=== PATIENT | female | born 1970 | race Caucasian/White ===

== ENCOUNTER 2017-04-11 08:12 | Emergency (ER) | payer OTHER ==
[~2017-04-11] VITALS: Wt 89.0 kg
--- NOTE | 2017-04-11 08:51 | ERD ---
ER Documentation Chief Complaint Date/Time DATE: 04/11/17 TIME: 08:50 Chief Complaint AP WITH NAUSEA X 3 DAYS, RAD BACK HPI 47-year-old female history of obesity presents with diffuse lower abdominal pain associated with nausea radiating to her lower back for the past 3 days. Patient states it is associated with constipation. She denies any history of vomiting, diarrhea or blood in her stools. She denies fevers or chills. ROS All systems reviewed and are negative except as per history of present illness. Medications Home Meds Active Scripts Tamsulosin Hcl* (Flomax*) 0.4 Mg Cap.er.24h, 0.4 MG PO BID, #30 CAP Prov:FIDEL STEINER PA-C 04/11/17 Hydrocodone/Acetaminophen ([place] 5-325 Tablet) 1 Each Tablet, 1 TAB PO Q6H Y for PAIN, #20 TAB Prov:FIDEL STEINER PA-C 04/11/17 Ibuprofen* (Motrin*) 600 Mg Tab, 600 MG PO Q6, #30 TAB Prov:FIDEL STEINER PA-C 04/11/17 Ciprofloxacin Hcl* (Ciprofloxacin Hcl*) 500 Mg Tablet, 500 MG PO BID for 10 Days , TAB Prov:FIDEL STEINER PA-C 04/11/17 Allergies Allergies: Coded Allergies: No Known Allergy (Unverified , 04/11/17) PMhx/Soc Medical and Surgical Hx: pt denies Medical Hx, pt denies Surgical Hx Hx Alcohol Use: Yes Hx Substance Use: No Hx Tobacco Use: No Physical Exam Vitals Vital Signs Date Time Temp Pulse Resp B/P Pulse Ox O2 Delivery O2 Flow Rate FiO2 04/11/17 08:17 99.0 96 20 150/89 99 Physical Exam General: Obese female, no distress HEENT: Head is normocephalic, atraumatic. No scleral icterus. Neck: Supple. Nontender. Lungs: Clear to auscultation. Normal air movement. Heart: Regular rate and rhythm. S1 and S2 are normal. No murmurs, gallops, or rubs. Abdomen: Soft, nontender, nondistended. Bowel sounds are normoactive. No CVA tenderness Extremities: No clubbing or cyanosis. Normal pulses. Moving extremities x 4. No weakness. Neurologic: Alert and oriented 3. No focal deficits. Skin: Normal turgor. No rash or lesions. Result Diagram: 04/11/17 0842 04/11/17 0842 Results 24 hrs Laboratory Tests Test 04/11/17 08:42 White Blood Count 15.110^3/ul Red Blood Count 4.6710^6/ul Hemoglobin 14.3g/dl Hematocrit 42.6% Mean Corpuscular Volume 91.2fl Mean Corpuscular Hemoglobin 30.6pg Mean Corpuscular Hemoglobin Concent 33.6g/dl Red Cell Distribution Width 12.8% Platelet Count 31865^3/UL Mean Platelet Volume 10.3fl Neutrophils % 74.8% Lymphocytes % 16.6% Monocytes % 6.7% Eosinophils % 1.1% Basophils % 0.4% Nucleated Red Blood Cells % 0.0/100WBC Neutrophils # 11.310^3/ul Lymphocytes # 2.510^3/ul Monocytes # 1.010^3/ul Eosinophils # 0.210^3/ul Basophils # 0.110^3/ul Nucleated Red Blood Cells # 0.010^3/ul Urine Color YELLOW Urine Clarity SLIGHTLY CLOUDY Urine pH 5.0 Urine Specific [place] 1.024 Urine Ketones TRACEmg/dL Urine Nitrite NEGATIVEmg/dL Urine Bilirubin NEGATIVEmg/dL Urine Urobilinogen NEGATIVEmg/dL Urine Leukocyte Esterase TRACELeu/ul Urine Microscopic RBC 8/HPF Urine Microscopic WBC 19/HPF Urine Hemoglobin 1+mg/dL Urine Glucose NEGATIVEmg/dL Urine Total Protein NEGATIVEmg/dl Sodium Level 143mmol/L Potassium Level 3.8mmol/L Chloride Level 99mmol/L Carbon Dioxide Level 26mmol/L Anion Gap 22 Blood Urea Nitrogen 15mg/dl Creatinine 0.74mg/dl Glucose Level 113mg/dl Calcium Level 9.6mg/dl Total Bilirubin 0.6mg/dl Direct Bilirubin 0.00mg/dl Indirect Bilirubin 0.6mg/dl Aspartate Amino Transf (AST/SGOT) 34IU/L Alanine Aminotransferase (ALT/SGPT) 55IU/L Alkaline Phosphatase 92IU/L Total Protein 8.3g/dl Albumin 4.5g/dl Globulin 3.80g/dl Albumin/Globulin Ratio 1.18 Lipase 40U/L Current Medications Medications (Trade) Dose Ordered Sig/Ana Route PRN Reason Start Time Stop Time Status Last Admin Dose Admin Sodium Chloride (NS) 1,000 ml @ 1,000 mls/hr Q1H STAT IV 04/11/17 09:56 04/11/17 10:55 DC 04/11/17 10:07 Morphine Sulfate (morphine) 4 mg ONCE STAT IV 04/11/17 09:56 04/11/17 09:59 DC 04/11/17 10:06 Ketorolac Tromethamine (Toradol) 30 mg ONCE STAT IV 04/11/17 09:56 04/11/17 09:59 DC 04/11/17 10:06 Ciprofloxacin (Cipro) 500 mg ONCE ONCE PO 04/11/17 10:00 04/11/17 10:01 DC 04/11/17 10:07 Ondansetron HCl (Zofran Inj) 4 mg ONCE STAT IV 04/11/17 10:16 04/11/17 10:17 DC 04/11/17 10:19 Hydromorphone HCl (Dilaudid) 0.5 mg ONCE STAT IV 04/11/17 10:53 04/11/17 10:54 DC 04/11/17 11:00 DIAGNOSTIC IMAGING REPORT Patient: OPAL PLUMMER : 1970 Age: 47 Sex: F MR #: [id number] DOS: 04/11/17 0903 Ordering MD: FIDEL STEINER PA-C Location: [facility] Room/Bed: PROCEDURE: CT Abdomen and Pelvis without intravenous contrast. CLINICAL INDICATION: Lower abdominal pain radiating to the back. Nausea. . TECHNIQUE: CT scan of the abdomen and pelvis without intravenous contrast was performed on a multi-slice CT scanner. Coronal and sagittal reformatted images were obtained from the axial source images. Images were reviewed on a high- resolution PACS workstation. Total DLP = 1248.4 mGy-cm. CTDIvol = 22.1 mGy. One or more of the following dose reduction techniques were used: Automated exposure control. Adjustment of the mA and/or kV according to patient size. Use of iterative reconstruction technique. COMPARISON: None. FINDINGS: CT abdomen and pelvis: The lung bases are clear. The heart size is normal in size. The liver is normal in size and mildly fatty in density without focal mass or intrahepatic biliary dilatation. The spleen is normal in size and homogeneous in density. The pancreas as visualized is normal. The gallbladder shows no evidence of stones or distension . The adrenal glands are normal. There is moderate left- sided hydroureteronephrosis with perinephric inflammation and stranding. There is a 9 x 7 x 6 mm calcified stone in the left mid ureter. The right kidney appears unremarkable without obstructive uropathy or urolithiasis. The stomach is partially collapsed, but is grossly unremarkable. The small bowels are unremarkable. The colon and rectum are normal. The appendix is normal. There is no evidence of appendicitis or diverticulitis. The pelvic organs are normal. The bladder is normal. There is no abdominal or pelvic adenopathy, free fluid, free air or mass. The aorta is normal in caliber and course. The osseous structures are intact. No osteolytic or osteoblastic lesions are identified. The soft tissues are within normal limits. Lack of IV and oral contrast limits sensitivity of exam. IMPRESSION: 1. Left mid ureteral 9 mm stone with moderate left hydroureteronephrosis and perinephric inflammation. 2. Mild hepatic steatosis. RPTAT: GG .Feroz Martinez MD, MD Date Time Electronically viewed and signed by .Feroz Martinez MD, on 04/11/2017 09:35 .L/ Procedures/MDM ED course: Patient had blood work obtained, and a KUB. MDM: 47-year-old female presents with lower abdominal pain for the past 3 days, presents with a ureteral kidney stone is 9 mm, with moderate hydronephrosis. CT abdomen pelvis confirms this finding. White blood cell count was mildly elevated at 15,000, however patient is afebrile well appearing and nontoxic. I discussed the results of the blood work, as well as a urine analysis and CT scan with my attending physician Dr. Justice who agrees that this patient can be discharged and managed on outpatient basis. She will be given medication for pain, and urinalysis does show white blood cells, and will be given ciprofloxacin for coverage. She was given instructions to follow-up with the urologist soon, she was given referral information to several. The case was reviewed and discussed with Dr. Justice who agrees with the plan of care including labs, treatment, and advanced imaging as appropriate. Departure Diagnosis: Primary Impression: Ureteral stone with hydronephrosis Condition: FIDEL Riggs PA-C Apr 11, 2017 08:51
[2017-04-11 09:00] LABS: BASOPHIL # 0.1 10^3/ul (0.0-0.1); BASOPHILS % 0.4 % (0.0-2.0); EOSINOPHILS # 0.2 10^3/ul (0.0-0.5); EOSINOPHILS % 1.1 % (0.0-7.0); HEMATOCRIT 42.6 % (37.0-47.0); HEMOGLOBIN 14.3 g/dl (12.0-16.0); LYMPHOCYTES # 2.5 10^3/ul (0.8-2.9); LYMPHOCYTES % 16.6 % (15.0-51.0); MEAN CORPUSCULAR HEMOGLOBIN 30.6 pg (29.0-33.0); MEAN CORPUSCULAR HGB CONC 33.6 g/dl (32.0-37.0); MEAN CORPUSCULAR VOLUME 91.2 fl (82.0-101.0); MEAN PLATELET VOLUME 10.3 fl (7.4-10.4); MONOCYTES % 6.7 % (0.0-11.0); NEUTROPHIL # 11.3 10^3/ul (1.6-7.5); NEUTROPHILS % 74.8 % (39.0-77.0); PLATELET COUNT 329 10^3/UL (140-415); RED BLOOD COUNT 4.67 10^6/ul (4.20-5.40); RED CELL DISTRIBUTION WIDTH 12.8 % (11.5-14.5); WHITE BLOOD COUNT 15.1 10^3/ul (4.8-10.8)
[2017-04-11 09:11] LABS: ADD UMIC YES; UR ASCORBIC ACID NEGATIVE (NEGATIVE); UR BILIRUBIN (Dip) NEGATIVE (NEGATIVE); UR BLOOD (Dip) 1+ mg/dL (NEGATIVE); UR CLARITY SLIGHTLY CLOUDY (CLEAR); UR COLOR YELLOW (YELLOW); UR GLUCOSE (Dip) NEGATIVE (NEGATIVE); UR KETONES (Dip) TRACE mg/dL (NEGATIVE); UR LEUKOCYTE ESTERASE (Dip) TRACE Leu/ul (NEGATIVE); UR NITRITE (Dip) NEGATIVE (NEGATIVE); UR RBC 8 /HPF (0-5); UR SPECIFIC GRAVITY (Dip) 1.024 (1.003-1.030); UR TOTAL PROTEIN (Dip) NEGATIVE (NEGATIVE); UR UROBILINOGEN (Dip) NEGATIVE (NEGATIVE)
[2017-04-11 09:24] LABS: ALBUMIN 4.5 g/dl (3.3-4.9); ALBUMIN/GLOBULIN RATIO 1.18; BILIRUBIN,INDIRECT 0.6 mg/dl (0-1.1); BILIRUBIN,TOTAL 0.6 mg/dl (0.2-1.3); CALCIUM 9.6 mg/dl (8.4-10.2); CREATININE 0.74 mg/dl (0.44-1.00); POTASSIUM 3.8 mmol/L (3.5-5.1); TOTAL PROTEIN 8.3 g/dl (6.1-8.1)
--- NOTE | 2017-04-11 09:35 | RADRPT ---
PROCEDURE: CT Abdomen and Pelvis without intravenous contrast. CLINICAL INDICATION: Lower abdominal pain radiating to the back. Nausea. . TECHNIQUE: CT scan of the abdomen and pelvis without intravenous contrast was performed on a multi -slice CT scanner. Coronal and sagittal reformatted images were obtained from the axial source image s. Images were reviewed on a high-resolution PACS workstation. Total DLP = 1248.4 mGy-cm. CTDIvol = 22.1 mGy. One or more of the following dose reduction techniques were used: Automated exposure control. Adjustment of the mA and/or kV according to patient size. Use of iterative reconstruction technique. COMPARISON: None. FINDINGS: CT abdomen and pelvis: The lung bases are clear. The heart size is normal in size. The liver is normal in size and mildly fatty in density without focal mass or intrahepatic biliary dilatation. The spleen is normal in si ze and homogeneous in density. The pancreas as visualized is normal. The gallbladder shows no ev idence of stones or distension . The adrenal glands are normal. There is moderate left-sided hydro ureteronephrosis with perinephric inflammation and stranding. There is a 9 x 7 x 6 mm calcified sto ne in the left mid ureter. The right kidney appears unremarkable without obstructive uropathy or ur olithiasis. The stomach is partially collapsed, but is grossly unremarkable. The small bowels are unremarkable. The colon and rectum are normal. The appendix is normal. There is no evidence of appendicitis or di verticulitis. The pelvic organs are normal. The bladder is normal. There is no abdominal or pelvic a denopathy, free fluid, free air or mass. The aorta is normal in caliber and course. The osseous structures are intact. No osteolytic or osteo blastic lesions are identified. The soft tissues are within normal limits. Lack of IV and oral con trast limits sensitivity of exam. IMPRESSION: 1. Left mid ureteral 9 mm stone with moderate left hydroureteronephrosis and perinephric inflammati on. 2. Mild hepatic steatosis. RPTAT: GG .Feroz Martinez MD, Date Time Electronically viewed and signed by .Feroz Martinez MD, on 04/11/2017 09:35 .L/
[2017-04-11] MEDS ORDERED: SOD CHLORIDE 0.9% 1,000 ML IV STA (09:56)
[2017-04-11] MEDS ORDERED: KETOROLAC 30 MG INJ IV STA (09:56)
[2017-04-11] MEDS ORDERED: morphine 4 MG/ML VIAL IV STA (09:56)
[2017-04-11] MEDS ORDERED: CIPROFLOXACIN 500 MG TAB PO ONE (10:00)
[2017-04-11] MEDS ORDERED: ONDANSETRON 4 MG INJ IV STA (10:16)
[2017-04-11] MEDS ORDERED: HYDROmorphONE 1 MG/ML SYG IV STA (10:53)
[2017-04-11] MEDS ORDERED: IBUP-1542 PO (11:20)
[2017-04-11] MEDS ORDERED: CIPR500T4 PO (11:20)
[2017-04-11] MEDS ORDERED: HYDR-906 PO (11:20)
[2017-04-11] MEDS ORDERED: TAMS-14 PO (11:20)
[2017-04-11 11:54] VITALS: BP 129/73; PULSE 75; RESP 18
== END 2017-04-11 11:55 | disposition home or self-care (01) ==
LOC: FTE 08:12
DX: N13.2 Hydronephrosis with renal and ureteral calculous obstruction (principal)
CPT/HCPCS: 36415; 74176; 80053; 81001; 83690; 85025; 96374; 96375; J1170; J1885; J2270; J2405; J7030; Z7502; Z7610

== ENCOUNTER 2017-04-12 10:02 | Inpatient (IN) | payer OTHER ==
[~2017-04-12] VITALS: Ht 162.6 cm; Wt 90.0 kg
[~2017-04-12 10:02] MED LIST: CIPR500T4 PO; HYDR-906 PO; IBUP-1542 PO; TAMS-14 PO
[2017-04-12] MEDS ORDERED: ONDANSETRON 4 MG INJ IV STA (10:23)
[2017-04-12] MEDS ORDERED: SOD CHLORIDE 0.9% 1,000 ML IV STA (10:23)
--- NOTE | 2017-04-12 10:45 | ERD ---
ER Documentation Chief Complaint Date/Time DATE: 04/12/17 TIME: 10:43 Chief Complaint LEFT FLANK PAIN, SEEN HERE YESTERDAY WITH SAME, STATES MEDS TOO STRONG HPI 47-year-old female diagnosed yesterday with left-sided ureteral stone, presents with left flank pain, nausea, vomiting and states that she feels drowsy. She was diagnosed with a kidney stone on CT scan, and was sent home with Cipro, Flomax, ibuprofen and [place]. She reports that she feels like her eyes rolling back and reports nausea vomiting. She states that the ibuprofen was not really helping, with the [place] she pain under control. She denies any fevers or chills. She states that she try to call 3 of the urologist on the referral information however she was not able to follow-up due to insurance limitations. ROS All systems reviewed and are negative except as per history of present illness. Medications Home Meds Active Scripts Tamsulosin Hcl* (Flomax*) 0.4 Mg Cap.er.24h, 0.4 MG PO BID, #30 CAP Prov:FIDEL STEINER PA-C 04/11/17 Hydrocodone/Acetaminophen ([place] 5-325 Tablet) 1 Each Tablet, 1 TAB PO Q6H Y for PAIN, #20 TAB Prov:FIDEL STEINER PA-C 04/11/17 Ibuprofen* (Motrin*) 600 Mg Tab, 600 MG PO Q6, #30 TAB Prov:FIDEL STEINER PA-C 04/11/17 Ciprofloxacin Hcl* (Ciprofloxacin Hcl*) 500 Mg Tablet, 500 MG PO BID for 10 Days , TAB Prov:FIDEL STEINER PA-C 04/11/17 Allergies Allergies: Coded Allergies: No Known Allergy (Unverified , 04/12/17) PMhx/Soc History of Surgery: Yes ( x 4) Anesthesia Reaction: No Hx Neurological Disorder: No Hx Respiratory Disorders: No Hx Cardiac Disorders: No Hx Psychiatric Problems: No Hx Miscellaneous Medical Probl: Yes (nephrolithiasis) Hx Alcohol Use: Yes Hx Substance Use: No Hx Tobacco Use: No Smoking Status: Never smoker Physical Exam Vitals Vital Signs Date Time Temp Pulse Resp B/P Pulse Ox O2 Delivery O2 Flow Rate FiO2 04/12/17 10:04 97.8 81 17 142/68 99 Physical Exam General: Well-developed, well-nourished. The patient appears in no acute distress. HEENT: Head is normocephalic, atraumatic. No scleral icterus. Neck: Supple. Nontender. Lungs: Clear to auscultation. Normal air movement. Heart: Regular rate and rhythm. S1 and S2 are normal. No murmurs, gallops, or rubs. Abdomen: Soft, nontender, nondistended. Bowel sounds are normoactive. Extremities: No clubbing or cyanosis. Normal pulses. Moving extremities x 4. No weakness. Neurologic: Alert and oriented 3. No focal deficits. Skin: Normal turgor. No rash or lesions. Result Diagram: 04/12/17 1035 04/12/17 1035 Results 24 hrs Laboratory Tests Test 04/12/17 10:21 04/12/17 10:35 Urine Color YELLOW Urine Clarity SLIGHTLY CLOUDY Urine pH 5.0 Urine Specific [place] 1.029 Urine Ketones 1+mg/dL Urine Nitrite NEGATIVEmg/dL Urine Bilirubin NEGATIVEmg/dL Urine Urobilinogen NEGATIVEmg/dL Urine Leukocyte Esterase 3+Ana/ul Urine Microscopic RBC 4/HPF Urine Microscopic WBC 25/HPF Urine Squamous Epithelial Cells FEW/HPF Urine Bacteria FEW/HPF Urine Hemoglobin 1+mg/dL Urine Glucose NEGATIVEmg/dL Urine Total Protein NEGATIVEmg/dl White Blood Count 11.410^3/ul Red Blood Count 4.0310^6/ul Hemoglobin 12.3g/dl Hematocrit 37.0% Mean Corpuscular Volume 91.8fl Mean Corpuscular Hemoglobin 30.5pg Mean Corpuscular Hemoglobin Concent 33.2g/dl Red Cell Distribution Width 12.9% Platelet Count 86773^3/UL Mean Platelet Volume 10.6fl Neutrophils % 67.6% Lymphocytes % 21.4% Monocytes % 7.6% Eosinophils % 2.6% Basophils % 0.4% Nucleated Red Blood Cells % 0.0/100WBC Neutrophils # 7.710^3/ul Lymphocytes # 2.410^3/ul Monocytes # 0.910^3/ul Eosinophils # 0.310^3/ul Basophils # 0.110^3/ul Nucleated Red Blood Cells # 0.010^3/ul Sodium Level 143mmol/L Potassium Level 3.8mmol/L Chloride Level 103mmol/L Carbon Dioxide Level 24mmol/L Anion Gap 20 Blood Urea Nitrogen 14mg/dl Creatinine 0.64mg/dl Glucose Level 123mg/dl Calcium Level 9.0mg/dl Total Bilirubin 0.4mg/dl Direct Bilirubin 0.00mg/dl Indirect Bilirubin 0.4mg/dl Aspartate Amino Transf (AST/SGOT) 47IU/L Alanine Aminotransferase (ALT/SGPT) 68IU/L Alkaline Phosphatase 95IU/L Total Protein 7.5g/dl Albumin 4.1g/dl Globulin 3.40g/dl Albumin/Globulin Ratio 1.20 Lipase 39U/L Current Medications Medications (Trade) Dose Ordered Sig/Ana Route PRN Reason Start Time Stop Time Status Last Admin Dose Admin Sodium Chloride (NS) 1,000 ml @ 1,000 mls/hr Q1H STAT IV 04/12/17 10:23 04/12/17 11:22 04/12/17 10:41 Ondansetron HCl 4 mg 4 mg ONCE STAT IV 04/12/17 10:23 04/12/17 10:27 DC 04/12/17 10:39 Ceftriaxone Sodium (Rocephin) 50 ml @ 100 mls/hr ONCE ONCE IVPB 04/12/17 11:30 04/12/17 11:59 Ketorolac Tromethamine (Toradol) 30 mg ONCE STAT IV 04/12/17 11:15 04/12/17 11:16 DC Procedures/MDM ED course: Labs and urine were repeated, she was given a fluid bolus of normal saline, as well as Zofran 4 mg IV. Patient was given Rocephin 1 g IV. She reports that yesterday the Toradol helped her, her kidney function is still normal, and will be given another dose of Toradol 30 mg IV. Medical decision making: This 47-year-old female presents with nausea, vomiting and flank pain associated with a kidney stone, complaining of pain, worsening urinary tract infection and at this point given that she has already been trialed on p.o. medication at home and still vomiting she will further benefit from hospitalization, pain control, IV antibiotics and fluids for kidney stone management. Yesterday's workup showed a white blood cell count of 15,000, CT abdomen pelvis shows a 9 mm obstructing ureteral stone with thick stranding. She is nontoxic appearing, afebrile, is unlikely the patient has a septic kidney stone, however because she continues to have pain, with a urinary tract infection and reports nausea vomiting at home, patient warrants hospitalization for symptomatic control. The case was reviewed and discussed with Dr. Vang who agrees with the plan of care including labs, treatment, and advanced imaging as appropriate. Departure Diagnosis: Primary Impression: Ureteral calculus, left Additional Impression: UTI (urinary tract infection) Condition: Stable FIDEL STEINER PA-C Apr 12, 2017 10:45
[2017-04-12 10:48] LABS: BASOPHIL # 0.1 10^3/ul (0.0-0.1); BASOPHILS % 0.4 % (0.0-2.0); EOSINOPHILS # 0.3 10^3/ul (0.0-0.5); EOSINOPHILS % 2.6 % (0.0-7.0); HEMOGLOBIN 12.3 g/dl (12.0-16.0); LYMPHOCYTES # 2.4 10^3/ul (0.8-2.9); LYMPHOCYTES % 21.4 % (15.0-51.0); MEAN CORPUSCULAR HEMOGLOBIN 30.5 pg (29.0-33.0); MEAN CORPUSCULAR HGB CONC 33.2 g/dl (32.0-37.0); MEAN CORPUSCULAR VOLUME 91.8 fl (82.0-101.0); MEAN PLATELET VOLUME 10.6 fl (7.4-10.4); MONOCYTE # 0.9 10^3/ul (0.3-0.9); MONOCYTES % 7.6 % (0.0-11.0); NEUTROPHIL # 7.7 10^3/ul (1.6-7.5); NEUTROPHILS % 67.6 % (39.0-77.0); PLATELET COUNT 256 10^3/UL (140-415); RED BLOOD COUNT 4.03 10^6/ul (4.20-5.40); RED CELL DISTRIBUTION WIDTH 12.9 % (11.5-14.5); WHITE BLOOD COUNT 11.4 10^3/ul (4.8-10.8)
[2017-04-12 11:01] LABS: ADD UMIC YES; UR ASCORBIC ACID NEGATIVE (NEGATIVE); UR BACTERIA FEW /HPF (NONE SEEN); UR BILIRUBIN (Dip) NEGATIVE (NEGATIVE); UR BLOOD (Dip) 1+ mg/dL (NEGATIVE); UR CLARITY SLIGHTLY CLOUDY (CLEAR); UR COLOR YELLOW (YELLOW); UR GLUCOSE (Dip) NEGATIVE (NEGATIVE); UR KETONES (Dip) 1+ mg/dL (NEGATIVE); UR LEUKOCYTE ESTERASE (Dip) 3+ Leu/ul (NEGATIVE); UR NITRITE (Dip) NEGATIVE (NEGATIVE); UR RBC 4 /HPF (0-5); UR SPECIFIC GRAVITY (Dip) 1.029 (1.003-1.030); UR SQUAMOUS EPITHELIAL CELL FEW /HPF (FEW); UR TOTAL PROTEIN (Dip) NEGATIVE (NEGATIVE); UR UROBILINOGEN (Dip) NEGATIVE (NEGATIVE)
[2017-04-12 11:05] LABS: ALBUMIN 4.1 g/dl (3.3-4.9); ALBUMIN/GLOBULIN RATIO 1.2; BILIRUBIN,INDIRECT 0.4 mg/dl (0-1.1); BILIRUBIN,TOTAL 0.4 mg/dl (0.2-1.3); CREATININE 0.64 mg/dl (0.44-1.00); POTASSIUM 3.8 mmol/L (3.5-5.1); TOTAL PROTEIN 7.5 g/dl (6.1-8.1)
[2017-04-12] MEDS ORDERED: KETOROLAC 30 MG INJ IV STA (11:15)
[2017-04-12 11:28] VITALS: TEMP 98.1
[2017-04-12] MEDS ORDERED: CEFTRIAXONE 1 GM/50 ML (PMX) 50 ML IVPB ONE (11:30)
--- NOTE | 2017-04-12 11:42 | EN ---
Date/Time of Note Date/Time of Note DATE: 04/12/17 TIME: 11:40 ER Progress Note I have seen and evaluated the patient along with the PA and/or COPY TECHNICIAN provider. I agree with the evaluation and plan of care. Please see their documentation for full ER course and evaluation. In short: Patient presents with intractable pain secondary to 9 mm mid ureteral stone On exam: Patient is slightly uncomfortable with a benign abdominal exam Assessment and plan: Patient has intractable pain secondary to a 9 mm mid ureteral stone that is unlikely to pass spontaneously. The patient does not have any fevers but urine is concerning for early infectious process. Ceftriaxone provided. Inpatient hospitalization likely appropriate. Accepting care team and consultations: I discussed the current laboratory data, diagnostic imaging and emergency care provided. Admitting team: Dr. Roblero Admitting team indication: Insurance directed Consulting services: Urology Dr. Shi notified FARSHAD GOLDSTEIN MD Apr 12, 2017 11:42
[2017-04-12] MEDS ORDERED: ONDANSETRON 4 MG INJ IV PRN (12:00)
[2017-04-12] MEDS ORDERED: ACETAMINOPHEN 325 MG TAB PO PRN ×2 (12:00→13:00)
[2017-04-12] MEDS: SOD CHLORIDE 0.9% 1,000 ML IV SCH ×2 (12:48→22:15)
[2017-04-12] MEDS ORDERED: ACETAMINOPHEN 650 MG SUPP PR PRN (13:00)
[2017-04-12] MEDS ORDERED: NACL 0.9% 3 ML SYG IV SCH (13:00)
[2017-04-12 13:26] VITALS: Ht 162.6 cm; Wt 90.0 kg
[2017-04-12 13:43] VITALS: BP 138/78; PULSE 78; RESP 18
--- NOTE | 2017-04-12 13:57 | HP ---
Date/Time of Note Date/Time of Note DATE: 04/12/17 TIME: 13:46 Assessment/Plan VTE Prophylaxis VTE Prophylaxis Intervention: SCD's Lines/Catheters IV Catheter Type (from Nrs): Saline Lock Assessment/Plan Assessment/Plan This is a 47-year-old male, who presented to the emergency room for evaluation of worsening left-sided flank pain associated with urinary hesitancy , frequency and dribbling. 1. Left ureteral calculus. CT with Left mid ureteral 9 mm stone with moderate left hydroureteronephrosis and perinephric inflammation. -Urology consultation has been called from the emergency room and Dr. Shi accepted the consult. -We will treat patient with n.p.o. status until urology evaluate, IV fluids, pain control and IV antibiotics. 2. Leukocytosis with presumptive urinary tract infection with #1. -Again patient will be treated with IV antibiotics as patient is at risk for developing sepsis. We will also obtain blood and urine cultures. 3. Obesity. -Weight reduction advised. We will also obtain a lipid panel and A1c Plan: Patient will be admitted inpatient medical surgical floor. Patient needs urology consultation urgently and left message to Dr. shi. Patient will be closely monitored in house. The rest of the management depend on clinical course, further studies and input from remediation bioanalytics consultant. Approximately 60 minutes was spent on this history and physical. Patient was seen in collaboration with Dr. Roblero. HPI/ROS Admit Date/Time Admit Date/Time Apr 12, 2017 at 11:36 Hx of Present Illness This is a 47-year-old obese female with no significant past medical history, who presented to the emergency room with worsening flank pain mostly left-sided with radiation to lower back and abdomen for 1 day duration. She also had associated urinary hesitation, straining and dribbling. Apparently patient was seen in [facility] emergency room yesterday and was diagnosed with a ureter stone and was sent home on Cipro, Flomax, ibuprofen and [place] with outpatient urology workup. However, patient did not feel any improvement in pain status and try to call outpatient urologist for follow-up and was not able to follow-up due to insurance limitations. Patient denied nausea, vomiting , fever or chills. She denied any chest pain, shortness of breath, loss of consciousness, dizziness, numbness or other constitutional symptoms. Initial workup showed mildly elevated WBC 11,400 with urinalysis positive for ketones, 3+ leukocyte [place], WBC and few bacteria. Patient did not have any fever in the emergency room. A CT abdomen and pelvis which was done on 2016 revealed left mid ureteral 9 mm stone with moderate left hydroureteronephrosis and perinephric inflammation. Patient was treated with IV Toradol, IV fluids and IV ceftriaxone in the emergency room and a urology consult was called with Dr. Shi who accepted the consultation and admitted for further evaluation. ROS A 12 point review of system was assessed and is negative other than what is mentioned in HPI PMH/Family/Social Past Medical History See HPI Past Surgical History See HPI 4 Social History Former smoker, alcohol abuse and marijuana use. Patient quit in January 2017. Smoking Status: Never smoker Exam/Review of Systems Vital Signs Vitals Vital Signs Date Time Temp Pulse Resp B/P Pulse Ox O2 Delivery O2 Flow Rate FiO2 04/12/17 12:27 87 16 145/87 99 Room Air 04/12/17 11:28 98.1 Exam Exam General: Well developed,adequately built, not in any acute distress . HEENT: Normocephalic, Atraumatic, No laceration or hematoma; Eyes: PEERL, Conjunctiva clear, Anicteric sclera Neck: Supple without any lymphadenopathy, nontender, no JVD, no carotid bruits, trachea midline, no thyromegaly Cardiac: S1, S2 auscultated, regular rhythm and rate, no mumurs or gallop Pulmonary: Normal respiratory effort. Chest clear to auscultation bilaterally, no adventitious breath sounds GI: Abdomen normal to inspection. Soft, non tender, non- distended, no masses, no rebound tenderness or guarding. Bowel sounds active on all four quadrants Genitourinary: With left-sided flank tenderness+ Extremities: No cyanosis, clubbing, or edema. Pulses [2+] bilaterally. Full ROM on all four extremities. No focal weakness appreciated. Neurologic: Alert to person, place, time, and situation. Affect appropriate, intact sensation. Skin: Clean,dry, and intact. No ecchymosis, no rashes, or lesions Labs Result Diagram: 04/12/17 1035 04/12/17 1035 Medications Medications Current Medications Sodium Chloride (NS) 1,000 ml @ 125 mls/hr Q8H IV ; Start 04/12/17 at 12:48 Ondansetron HCl (Zofran Inj) 4 mg Q6H PRN IV NAUSEA AND/OR VOMITING; Start 06/19 at 13:00 Acetaminophen (Tylenol Tab) 650 mg Q6H PRN PO PAIN LEVEL 1-3 OR FEVER; Start at 13:00 Acetaminophen (Tylenol Supp) 650 mg Q6H PRN ND PAIN LEVEL 1-3 OR FEVER; Start 04/12/17 at 13:00 Morphine Sulfate 2 mg 2 mg Q4H PRN IV SEVERE PAIN LEVEL 7-10; Start 04/12/17 at 13:00 Ceftriaxone Sodium (Rocephin) 50 ml @ 100 mls/hr Q24H IVPB ; Start 04/13/17 at 11:00 Tamsulosin HCl (Flomax) 0.4 mg BID PO ; Start 04/12/17 at 21:00 GAGAN IVY NP Apr 12, 2017 13:56
[2017-04-12] MEDS: morphine 2 MG INJ IV PRN ×2 (15:05→19:20)
[2017-04-12] MEDS ORDERED: morphine 2 MG INJ IV SCH (19:52)
[2017-04-12] MEDS: TAMSULOSIN (SR) 0.4 MG CAP PO SCH (22:12)
[2017-04-13] VITALS (19 sets, daily range): BP systolic 83–137; BP diastolic 51–80; PULSE 60–75; RESP 9–26
[2017-04-13] MEDS: ZOLPIDEM 5 MG TAB PO PRN ×2 (00:36→23:19)
[2017-04-13] MEDS: AL HYDROX/MG HYDROX/SIMETH 30 ML CUP PO PRN ×3 (00:36→20:08)
[2017-04-13] MEDS: morphine 4 MG/ML VIAL IV PRN ×2 (01:13→13:13)
[2017-04-13] MEDS: SOD CHLORIDE 0.9% 1,000 ML IV SCH ×2 (04:48→12:48)
[2017-04-13 06:07] LABS: BASOPHILS % 0.5 % (0.0-2.0); EOSINOPHILS # 0.2 10^3/ul (0.0-0.5); EOSINOPHILS % 3.1 % (0.0-7.0); HEMATOCRIT 32.6 % (37.0-47.0); HEMOGLOBIN 10.6 g/dl (12.0-16.0); LYMPHOCYTES # 2.6 10^3/ul (0.8-2.9); LYMPHOCYTES % 33.9 % (15.0-51.0); MEAN CORPUSCULAR HEMOGLOBIN 30.1 pg (29.0-33.0); MEAN CORPUSCULAR HGB CONC 32.5 g/dl (32.0-37.0); MEAN CORPUSCULAR VOLUME 92.6 fl (82.0-101.0); MEAN PLATELET VOLUME 10.8 fl (7.4-10.4); MONOCYTE # 0.6 10^3/ul (0.3-0.9); MONOCYTES % 7.4 % (0.0-11.0); NEUTROPHIL # 4.2 10^3/ul (1.6-7.5); NEUTROPHILS % 54.7 % (39.0-77.0); PLATELET COUNT 241 10^3/UL (140-415); RED BLOOD COUNT 3.52 10^6/ul (4.20-5.40); WHITE BLOOD COUNT 7.8 10^3/ul (4.8-10.8)
[2017-04-13 06:27] LABS: ALBUMIN 3.3 g/dl (3.3-4.9); ALBUMIN/GLOBULIN RATIO 1.22; BILIRUBIN,INDIRECT 0.3 mg/dl (0-1.1); BILIRUBIN,TOTAL 0.3 mg/dl (0.2-1.3); CALCIUM 7.9 mg/dl (8.4-10.2); CHOL/HDL RATIO 2.9 RATIO; CREATININE 0.64 mg/dl (0.44-1.00); POTASSIUM 3.4 mmol/L (3.5-5.1)
[2017-04-13 06:49] LABS: THYROID STIMULATING HORMONE 2.12 MIU/L (0.465-4.680)
[2017-04-13] MEDS ORDERED: PROPOFOL 200 MG INJ ONE (07:00)
[2017-04-13] MEDS ORDERED: ROCURONIUM 50 MG INJ ONE (07:38)
[2017-04-13] MEDS ORDERED: FENTAnyl 50 MCG/ML VIAL ONE (07:38)
[2017-04-13] MEDS ORDERED: PROPOFOL 0 ML ONE (07:38)
[2017-04-13] MEDS ORDERED: ONDANSETRON 4 MG INJ ONE (07:38)
[2017-04-13] MEDS ORDERED: SUCCINYLCHOLINE CHLORIDE 100 MG/5 ML SYG IV ONE (07:38)
[2017-04-13] MEDS ORDERED: METOCLOPRAMIDE 10 MG INJ ONE (07:39)
--- NOTE | 2017-04-13 07:49 | HPN ---
Date/Time of Note Date/Time of Note DATE: 04/13/17 TIME: 07:43 Interval H&P Admission Note Pt. seen H&P reviewed: No system changes AKI RONDON MD Apr 13, 2017 07:49
--- NOTE | 2017-04-13 08:18 | RADRPT ---
PROCEDURE: Chest radiograph series. CLINICAL INDICATION: Preop TECHNIQUE: PA and lateral chest x-ray. COMPARISON: None. FINDINGS: The cardiomediastinal silhouette is unremarkable. The lungs and costophrenic angles are clear. The o sseous structures are unremarkable. IMPRESSION: 1. Unremarkable chest radiograph series. RPTAT: KK .Gurpreet Gallagher MD, MD Date Time Electronically viewed and signed by .Gurpreet Gallagher MD, on 04/13/2017 08:18 .B/
[2017-04-13] MEDS ORDERED: ONDANSETRON 4 MG INJ IV PRN (08:30)
[2017-04-13] MEDS ORDERED: hydrALAzine 20 MG INJ IV PRN (08:30)
[2017-04-13] MEDS ORDERED: LABETALOL HCL 20MG INJ IV PRN (08:30)
[2017-04-13] MEDS ORDERED: HYDROmorphONE (0.2 MG/ML) 10ML SYG IV PRN ×3 (08:30)
[2017-04-13] MEDS ORDERED: FENTAnyl 50 MCG/ML VIAL IV PRN ×2 (08:30)
[2017-04-13] MEDS ORDERED: MEPERIDINE 25 MG INJ IV PRN (08:30)
--- NOTE | 2017-04-13 08:42 | OPR ---
Date/Time of Note Date/Time of Note DATE: 04/13/17 TIME: 08:40 Operative Report Preoperative Diagnosis Ureral stone Postoperative Diagnosis ureteral stone Left Operation/Procedure Performed insertion of left ureteral stone 24cm 6 f Surgeon: AKI RONDON MD Anesthesia Type: general Estimated Blood Loss: none Transfusion Required: no Specimen: none Grafts/Implants uereteral double j stent Complications: no AKI RONDON MD Apr 13, 2017 08:42
[2017-04-13] MEDS: D5W-0.45 NACL + KCL 20 MEQ 1,000 ML IV SCH ×3 (08:43→18:43)
[2017-04-13] MEDS ORDERED: HYDROCODONE/APAP (5/325) TAB PO PRN (09:00)
[2017-04-13] MEDS: HYDROmorphONE 1 MG/ML SYG IV PRN ×2 (10:20→16:47)
[2017-04-13] MEDS: POTASSIUM CHLORIDE (SR) 20 MEQ TAB PO SCH (12:18)
[2017-04-13] MEDS: TAMSULOSIN (SR) 0.4 MG CAP PO SCH ×2 (12:19→20:08)
[2017-04-13] MEDS: CEFTRIAXONE 1 GM/50 ML (PMX) 50 ML IVPB SCH (12:21)
[2017-04-13] MEDS: ONDANSETRON 4 MG INJ IV PRN ×2 (13:13→20:08)
--- NOTE | 2017-04-13 15:00 | RADRPT ---
PROCEDURE: Intraoperative imaging of the abdomen and pelvis with fluoroscopy. CLINICAL INDICATION: Abdominal pain. Intraoperative. TECHNIQUE: Four images of the abdomen and pelvis were obtained in the operating room with an image intensifier. No radiologist was in attendance. 17 seconds of fluoroscopy time was used. COMPARISON: CT scan of the abdomen and pelvis dated 04/11/2017. FINDINGS: Images demonstrate placement of a left ureteral stent. The proximal stent is overlying the left kid issac and the distal stent is not included on the images. IMPRESSION: 1. Intraoperative imaging of the abdomen and pelvis. RPTAT: QQ .Adriel Novak MD, Date Time Electronically viewed and signed by .Adriel Novak MD, on 04/13/2017 14:59 .R/
--- NOTE | 2017-04-13 15:04 | PN ---
Date/Time of Note Date/Time of Note DATE: 04/13/17 TIME: 15:01 Assessment/Plan VTE Prophylaxis VTE Prophylaxis Intervention: SCD's Lines/Catheters IV [facility] ([facility] Peripheral IV Urinary Cath still in place: No Assessment/Plan Chief Complaint/Hosp Course 1. Left ureteral calculus. CT with Left mid ureteral 9 mm stone with moderate left hydroureteronephrosis and perinephric inflammation. -Status post ureteral stent placed on 04/13/2017. -Diet as tolerated. Continue pain control antibiotics. 2. Leukocytosis with presumptive urinary tract infection with #1. Resolved. -Continue antibiotics and follow-up urine culture. 3. Obesity. -Weight reduction advised. Plan: Follow-up with urology recommendation postoperatively. Case management for arranging follow-up with Dr. Shi as outpatient upon discharge. Patient was seen in collaboration with Dr. Roblero. Problems: Subjective 24 Hr Interval Summary Free Text/Dictation Patient is status post left ureteral stent placed. Having pain not effective with morphine and wanted to change. Exam/Review of Systems Vital Signs Vitals Vital Signs Date Time Temp Pulse Resp B/P Pulse Ox O2 Delivery O2 Flow Rate FiO2 04/13/17 14:30 98.0 85 18 116/59 97 04/13/17 09:50 Room Air Intake and Output 04/12/17 04/12/17 04/13/17 15:00 23:00 07:00 Intake Total 1050 ml 1275 ml Balance 1050 ml 1275 ml Exam General: Well developed,adequately built, not in any acute distress . HEENT: Normocephalic, Atraumatic, No laceration or hematoma; Eyes: PEERL, Conjunctiva clear, Anicteric sclera Neck: Supple without any lymphadenopathy, nontender, no JVD, no carotid bruits, trachea midline, no thyromegaly Cardiac: S1, S2 auscultated, regular rhythm and rate, no mumurs or gallop Pulmonary: Normal respiratory effort. Chest clear to auscultation bilaterally, no adventitious breath sounds GI: Abdomen normal to inspection. Soft, non tender, non- distended, no masses, no rebound tenderness or guarding. Bowel sounds active on all four quadrants Genitourinary: With left-sided flank tenderness+ Extremities: No cyanosis, clubbing, or edema. Pulses [2+] bilaterally. Full ROM on all four extremities. No focal weakness appreciated. Neurologic: Alert to person, place, time, and situation. Affect appropriate, intact sensation. Skin: Clean,dry, and intact. No ecchymosis, no rashes, or lesions Results Result Diagram: 04/13/17 0432 04/13/17 0432 Results 24 hrs Laboratory Tests Test 04/13/17 04:32 White Blood Count 7.8 # Red Blood Count 3.52 L Hemoglobin 10.6 L Hematocrit 32.6 L Mean Corpuscular Volume 92.6 Mean Corpuscular Hemoglobin 30.1 Mean Corpuscular Hemoglobin Concent 32.5 Red Cell Distribution Width 13.0 Platelet Count 241 Mean Platelet Volume 10.8 H Neutrophils % 54.7 Lymphocytes % 33.9 Monocytes % 7.4 Eosinophils % 3.1 Basophils % 0.5 Nucleated Red Blood Cells % 0.0 Neutrophils # 4.2 Lymphocytes # 2.6 Monocytes # 0.6 Eosinophils # 0.2 Basophils # 0.0 Nucleated Red Blood Cells # 0.0 Sodium Level 142 Potassium Level 3.4 L Chloride Level 107 Carbon Dioxide Level 24 Anion Gap 14 Blood Urea Nitrogen 9 Creatinine 0.64 Glucose Level 99 Hemoglobin A1c 5.2 Calcium Level 7.9 L Phosphorus Level 3.0 Magnesium Level 2.0 Total Bilirubin 0.3 Direct Bilirubin 0.00 Indirect Bilirubin 0.3 Aspartate Amino Transf (AST/SGOT) 46 Alanine Aminotransferase (ALT/SGPT) 77 H Alkaline Phosphatase 67 Total Protein 6.0 #L Albumin 3.3 Globulin 2.70 Albumin/Globulin Ratio 1.22 Triglycerides Level 52 Cholesterol Level 151 LDL Cholesterol, Calculated 89 HDL Cholesterol 52 Cholesterol/HDL Ratio 2.9 Thyroid Stimulating Hormone (TSH) 2.120 Medications Medications Current Medications Sodium Chloride (NS) 1,000 ml @ 125 mls/hr Q8H IV Last administered on 22:15; Admin Dose 125 MLS/HR; Start 04/12/17 at 12:48 Ondansetron HCl (Zofran Inj) 4 mg Q6H PRN IV NAUSEA AND/OR VOMITING Last administered on 04/13/17 13:13; Admin Dose 4 MG; Start 04/12/17 at 13:00 Acetaminophen (Tylenol Tab) 650 mg Q6H PRN PO PAIN LEVEL 1-3 OR FEVER; Start at 13:00 Acetaminophen 650 mg 650 mg Q6H PRN [place] PAIN LEVEL 1-3 OR FEVER; Start 04/12/17 at 13:00 Ceftriaxone Sodium (Rocephin) 50 ml @ 100 mls/hr Q24H IVPB Last administered on 04/13/17 12:21; Admin Dose 100 MLS/HR; Start 04/13/17 at 11:00 Tamsulosin HCl (Flomax) 0.4 mg BID PO Last administered on 04/13/17 12:19; Admin Dose 0.4 MG; Start 04/12/17 at 21:00 Morphine Sulfate (morphine) 4 mg Q2H PRN IV PAIN Last administered on 13:13; Admin Dose 4 MG; Start 04/12/17 at 20:00 Zolpidem Tartrate (Ambien) 5 mg HS PRN PO INSOMNIA Last administered on 00:36; Admin Dose 5 MG; Start 04/12/17 at 22:30 Al Hydrox/Mg Hydrox/Simethicone (Mag-Al Plus) 30 ml Q6H PRN PO GASTROINTESTINAL UPSET Last administered on 04/13/17 13:13; Admin Dose 30 ML; Start 04/12/17 at 22:30 Hydromorphone HCl (Dilaudid) 0.5 mg Q6H PRN IV PAIN LEVEL 6-10 Last administered on 04/13/17 10:20; Admin Dose 0.5 MG; Start 04/13/17 at 09:00 Acetaminophen/ Hydrocodone Bitart 1 tab 1 tab Q6H PRN PO PAIN LEVEL 6-10; Start 04/13/17 at 09:00 Potassium Chloride/Dextrose/ Sod Cl (D5-1/2ns + KCl 20 Meq) 1,000 ml @ 100 mls/ hr Q10H IV Last administered on 04/13/17 10:28; Admin Dose 100 MLS/HR; Start 04/13/17 at 08:43 Potassium Chloride (Klor-Con 20) 20 meq DAILY PO Last administered on 12:18; Admin Dose 20 MEQ; Start 04/13/17 at 09:00 GAGAN IVY NP Apr 13, 2017 15:04
[2017-04-13] MEDS: KETOROLAC 15 MG INJ IV PRN ×2 (15:23→22:20)
[2017-04-13] MEDS ORDERED: MAGNESIUM HYDROXIDE 30ML CUP PO ONE (16:30)
[2017-04-14] MEDS: D5W-0.45 NACL + KCL 20 MEQ 1,000 ML IV SCH ×2 (02:32→13:44)
[2017-04-14] MEDS: HYDROmorphONE 1 MG/ML SYG IV PRN ×3 (02:36→20:45)
[2017-04-14 03:55] VITALS: BP 112/66; RESP 18
[2017-04-14 05:58] LABS: BASOPHILS % 0.5 % (0.0-2.0); EOSINOPHILS # 0.2 10^3/ul (0.0-0.5); EOSINOPHILS % 2.5 % (0.0-7.0); HEMOGLOBIN 10.6 g/dl (12.0-16.0); LYMPHOCYTES # 2.5 10^3/ul (0.8-2.9); LYMPHOCYTES % 33.2 % (15.0-51.0); MEAN CORPUSCULAR HEMOGLOBIN 29.6 pg (29.0-33.0); MEAN CORPUSCULAR HGB CONC 32.1 g/dl (32.0-37.0); MEAN CORPUSCULAR VOLUME 92.2 fl (82.0-101.0); MEAN PLATELET VOLUME 10.8 fl (7.4-10.4); MONOCYTE # 0.5 10^3/ul (0.3-0.9); MONOCYTES % 6.9 % (0.0-11.0); NEUTROPHIL # 4.2 10^3/ul (1.6-7.5); NEUTROPHILS % 56.4 % (39.0-77.0); PLATELET COUNT 275 10^3/UL (140-415); RED BLOOD COUNT 3.58 10^6/ul (4.20-5.40); RED CELL DISTRIBUTION WIDTH 12.6 % (11.5-14.5); WHITE BLOOD COUNT 7.5 10^3/ul (4.8-10.8)
[2017-04-14 06:06] LABS: CREATININE 0.61 mg/dl (0.44-1.00); POTASSIUM 3.7 mmol/L (3.5-5.1)
[2017-04-14] MEDS: KETOROLAC 15 MG INJ IV PRN ×2 (07:51→17:48)
[2017-04-14] MEDS: ONDANSETRON 4 MG INJ IV PRN ×2 (07:58→20:41)
[2017-04-14 08:14] VITALS: BP 125/69; RESP 18
[2017-04-14] MEDS: POTASSIUM CHLORIDE (SR) 20 MEQ TAB PO SCH (08:52)
[2017-04-14] MEDS: TAMSULOSIN (SR) 0.4 MG CAP PO SCH ×2 (08:52→20:41)
[2017-04-14] MEDS: AL HYDROX/MG HYDROX/SIMETH 30 ML CUP PO PRN (10:23)
[2017-04-14] MEDS: CEFTRIAXONE 1 GM/50 ML (PMX) 50 ML IVPB SCH (10:26)
[2017-04-14] MEDS ORDERED: NA PHOSPHATE/BIPHOS 133 ML ENEMA PR ONE (12:00)
[2017-04-14] MEDS: DOCUSATE SODIUM 100 MG CAP PO SCH ×2 (12:06→20:41)
--- NOTE | 2017-04-14 13:29 | PN ---
Date/Time of Note Date/Time of Note DATE: 04/14/17 TIME: 13:27 Assessment/Plan VTE Prophylaxis VTE Prophylaxis Intervention: ambulation Lines/Catheters [facility] Type (from [facility]): Peripheral IV Urinary Cath still in place: No Assessment/Plan Chief Complaint/Hosp Course Chief Complaint/Hosp Course 1. Left ureteral calculus. CT with Left mid ureteral 9 mm stone with moderate left hydroureteronephrosis and perinephric inflammation. -Status post ureteral stent placed on 04/13/2017. Doing well from urology standpoint. -Advance diet as tolerated 2. Leukocytosis with presumptive urinary tract infection with #1. Resolved. -Continue antibiotics and follow-up urine culture. 3. Obesity. -Weight reduction advised. 4. Constipation likely secondary to immobility and pain medications. Will start Colace and enema 1. Encouraged out of bed. Anticipate discharge tomorrow. Problems: Subjective 24 Hr Interval Summary Free Text/Dictation Patient constipated with nausea this morning. Decreased p.o. intake. Apparently no bowel movement for the past 5 days. Exam/Review of Systems Vital Signs Vitals Vital Signs Date Time Temp Pulse Resp B/P Pulse Ox O2 Delivery O2 Flow Rate FiO2 04/14/17 08:14 98.0 79 18 125/69 97 04/13/17 09:50 Room Air Intake and Output 04/13/17 04/13/17 04/14/17 15:00 23:00 07:00 Intake Total 50 ml 1130 ml 1055 ml Output Total 150.1 ml Balance -100.1 ml 1130 ml 1055 ml Exam GENERAL: Moderately obese lady comfortable at rest talking full complete sentences. VITAL SIGNS: per chart NECK: Supple. No JVD or lymphadenopathy. CARDIAC EXAM: S1, S2. No added sounds or murmurs. CHEST: clear bilaterally, No added sounds, rales or wheezes ABDOMEN: Soft, nontender. No guarding or rebound. EXTREMITIES: No cyanosis, clubbing or edema. NEUROLOGIC: Generalized weakness. No focal deficits. Results Result Diagram: 04/14/17 0420 04/14/17 0430 Results 24 hrs Laboratory Tests Test 04/14/17 04:20 04/14/17 04:30 White Blood Count 7.5 Red Blood Count 3.58 L Hemoglobin 10.6 L Hematocrit 33.0 L Mean Corpuscular Volume 92.2 Mean Corpuscular Hemoglobin 29.6 Mean Corpuscular Hemoglobin Concent 32.1 Red Cell Distribution Width 12.6 Platelet Count 275 Mean Platelet Volume 10.8 H Neutrophils % 56.4 Lymphocytes % 33.2 Monocytes % 6.9 Eosinophils % 2.5 Basophils % 0.5 Nucleated Red Blood Cells % 0.0 Neutrophils # 4.2 Lymphocytes # 2.5 Monocytes # 0.5 Eosinophils # 0.2 Basophils # 0.0 Nucleated Red Blood Cells # 0.0 Sodium Level 136 Potassium Level 3.7 Chloride Level 106 Carbon Dioxide Level 24 Anion Gap 10 Blood Urea Nitrogen 8 Creatinine 0.61 Glucose Level 103 Calcium Level 8.0 L Medications Medications Current Medications Ondansetron HCl (Zofran Inj) 4 mg Q6H PRN IV NAUSEA AND/OR VOMITING Last administered on 04/14/17 07:58; Admin Dose 4 MG; Start 04/12/17 at 13:00 Acetaminophen (Tylenol Tab) 650 mg Q6H PRN PO PAIN LEVEL 1-3 OR FEVER; Start at 13:00 Acetaminophen 650 mg 650 mg Q6H PRN [place] PAIN LEVEL 1-3 OR FEVER; Start 04/12/17 at 13:00 Ceftriaxone Sodium (Rocephin) 50 ml @ 100 mls/hr Q24H IVPB Last administered on 04/14/17 10:26; Admin Dose 100 MLS/HR; Start 04/13/17 at 11:00 Tamsulosin HCl (Flomax) 0.4 mg BID PO Last administered on 04/14/17 08:52; Admin Dose 0.4 MG; Start 04/12/17 at 21:00 Zolpidem Tartrate (Ambien) 5 mg HS PRN PO INSOMNIA Last administered on 23:19; Admin Dose 5 MG; Start 04/12/17 at 22:30 Al Hydrox/Mg Hydrox/Simethicone (Mag-Al Plus) 30 ml Q6H PRN PO GASTROINTESTINAL UPSET Last administered on 04/14/17 10:23; Admin Dose 30 ML; Start 04/12/17 at 22:30 Hydromorphone HCl (Dilaudid) 0.5 mg Q6H PRN IV PAIN LEVEL 6-10 Last administered on 04/14/17 12:06; Admin Dose 0.5 MG; Start 04/13/17 at 09:00 Acetaminophen/ Hydrocodone Bitart 1 tab 1 tab Q6H PRN PO PAIN LEVEL 6-10; Start 04/13/17 at 09:00 Potassium Chloride/Dextrose/ Sod Cl (D5-1/2ns + KCl 20 Meq) 1,000 ml @ 50 mls/ hr Q20H IV Last administered on 04/14/17 02:32; Admin Dose 50 MLS/HR; Start at 08:43 Potassium Chloride (Klor-Con 20) 20 meq DAILY PO Last administered on 08:52; Admin Dose 20 MEQ; Start 04/13/17 at 09:00 Ketorolac Tromethamine (Toradol) 15 mg Q6H PRN IV PAIN Last administered on 07:51; Admin Dose 15 MG; Start 04/13/17 at 15:00; Stop 04/16/17 at 14:59 Docusate Sodium (Colace) 100 mg BID PO Last administered on 04/14/17 12:06; Admin Dose 100 MG; Start 04/14/17 at 12:00 ADELIA YANCEY MD, [facility] Apr 14, 2017 13:29
[2017-04-14 14:53] VITALS: BP 130/76; RESP 18
[2017-04-14 20:25] VITALS: BP 136/70; RESP 18
[2017-04-15] MEDS ORDERED: AL HYDROX/MG HYDROX/SIMETH 30 ML CUP PO ONE
[2017-04-15] MEDS ORDERED: CALCIUM CARBONATE 500 MG CHEW TAB PO ONE
[2017-04-15] MEDS: D5W-0.45 NACL + KCL 20 MEQ 1,000 ML IV SCH (00:26)
[2017-04-15 02:07] VITALS: BP 118/69; RESP 18
[2017-04-15] MEDS: ZOLPIDEM 5 MG TAB PO PRN (02:46)
[2017-04-15 05:45] LABS: BASOPHILS % 0.5 % (0.0-2.0); EOSINOPHILS # 0.3 10^3/ul (0.0-0.5); EOSINOPHILS % 3.7 % (0.0-7.0); HEMATOCRIT 33.7 % (37.0-47.0); HEMOGLOBIN 11.1 g/dl (12.0-16.0); LYMPHOCYTES # 2.7 10^3/ul (0.8-2.9); LYMPHOCYTES % 35.9 % (15.0-51.0); MEAN CORPUSCULAR HEMOGLOBIN 30.1 pg (29.0-33.0); MEAN CORPUSCULAR HGB CONC 32.9 g/dl (32.0-37.0); MEAN CORPUSCULAR VOLUME 91.3 fl (82.0-101.0); MEAN PLATELET VOLUME 10.6 fl (7.4-10.4); MONOCYTE # 0.5 10^3/ul (0.3-0.9); MONOCYTES % 6.2 % (0.0-11.0); NEUTROPHILS % 53.3 % (39.0-77.0); PLATELET COUNT 283 10^3/UL (140-415); RED BLOOD COUNT 3.69 10^6/ul (4.20-5.40); RED CELL DISTRIBUTION WIDTH 12.4 % (11.5-14.5); WHITE BLOOD COUNT 7.6 10^3/ul (4.8-10.8)
[2017-04-15] MEDS ORDERED: PANTOPRAZOLE (EC) 40 MG TAB PO SCH (06:00)
[2017-04-15 06:30] LABS: CALCIUM 8.8 mg/dl (8.4-10.2); CREATININE 0.58 mg/dl (0.44-1.00); MAGNESIUM 2.1 mg/dl (1.7-2.5); PHOSPHORUS 3.8 mg/dl (2.5-4.9); POTASSIUM 3.9 mmol/L (3.5-5.1)
[2017-04-15 08:16] VITALS: BP 123/61; RESP 18
[2017-04-15] MEDS: TAMSULOSIN (SR) 0.4 MG CAP PO SCH (08:27)
[2017-04-15] MEDS: POTASSIUM CHLORIDE (SR) 20 MEQ TAB PO SCH (08:27)
[2017-04-15] MEDS: DOCUSATE SODIUM 100 MG CAP PO SCH (08:27)
[2017-04-15] MEDS: HYDROmorphONE 1 MG/ML SYG IV PRN (09:11)
--- NOTE | 2017-04-15 09:54 | PDOCDIS ---
Discharge Instructions CONDITION Patient Condition: Stable HOME CARE INSTRUCTIONS: Diet Instructions: Regular FOLLOW UP/APPOINTMENTS Follow-up Plan 1.Follow up with primary care physician in 1 week If you don't have one please let someone know, we can give you resources that may help you pick one. You may also call your insurance company to assign one to you. Review your medication list with your nurse before leaving and if you need new prescriptions please let your nurse know. I may have made changes to your home medications or given you new prescriptions, please let your primary doctor know as well. Stay compliant with your medications and report any side effects to your PCP or pharmacist. Return to the ER if you have any concerns and cannot reach your doctors or call your insurance company, they usually have a nurse that can help you. 2. Call 911 or go to the nearest emergency room if experiencing loss of consciousness, dizziness, chest pain, shortness of breath, vomiting/abdominal pain, speech difficulties, motor weakness or any unusual symptoms. OTHER ORDERS: Other Orders: Followup with in 1 week, call Sunday for appointment [id number] [facility] [address] [place] [id number] Office GAGAN IVY NP Apr 15, 2017 09:54
[2017-04-15] MEDS ORDERED: DOCU-216 PO (09:59)
[2017-04-15] MEDS ORDERED: CIPR500T4 PO (09:59)
[2017-04-15] MEDS ORDERED: NA PHOSPHATE/BIPHOS 133 ML ENEMA PR ONE (10:00)
--- NOTE | 2017-04-15 10:37 | DS ---
Date/Time of Note Date/Time of Note DATE: 04/15/17 TIME: 10:34 Discharge Summary Admission/Discharge Info Admit Date/Time Apr 12, 2017 at 11:36 Discharge Date/Time Discharge Diagnosis 1. Left ureteral calculus. Status post ureteral stent placed on 04/13/2017. 2. Leukocytosis with presumptive urinary tract infection with #1. Resolved. 3. Obesity. 4. Constipation likely secondary to immobility and pain medications.Stable. Patient Condition: Stable Consults Dr. Shi, urology Procedures 04/13/2017. Operation performed: Left ureteral stent placement Hospital Course This is a 47-year-old obese female with no significant past medical history, who presented to the emergency room with acute onset of worsening flank pain mostly left-sided with radiation to lower back and abdomen.Apparently she was diagnosed with left mid ureteral 9 mm stone with moderate left hydroureteronephrosis and perinephric inflammation at [facility] emergency room the day before admission and was sent home on Cipro, Flomax, ibuprofen and [place] with outpatient urology workup. Unfortunately, due to insurance limitation, this lady could not get any urology follow-up as outpatient and she decided to come back to emergency room as her pain got worse. Patient was admitted for further inpatient workup as she was at risk for developing sepsis with urinary tract infection (positive urinalysis upon arrival) with leukocytosis secondary to obstructing ureteral stone. Patient was kept n.p.o. for possible urology intervention. She was treated with IV fluids, pain control and antibiotics. Urology consultation was called and on 04/13/2017, patient had undergone ureteral stent placement with Dr. Shi. Patient tolerated procedure well. She was started on a diet and was able to tolerate it. Patient was noted to have constipation which was treated with stool softeners, laxatives and enema. There was no gross hematuria, fever, nausea, vomiting, flank pain, abdominal discomfort or other discomfort. Cultures were negative. No further inpatient urology workup is indicated and patient is medically stable for discharge with outpatient urology follow-up. He was recommended to continue antibiotic for a 7 day duration as initial workup was favoring presumptive urinary tract infection. Disposition: Patient will be discharged home today. She was instructed to follow-up with urology and to call office on Sunday to make appointment. She was given urology providers office location and phone number. She was also instructed on weight control for underlying obesity. Patient was given prescription for pain medications and antibiotic upon discharge. Patient verbalized discharge instructions. Condition at time of discharge is stable. Approximately 60 minutes was spent in coordinating the discharge on this patient. Case discussed with Dr. Roblero. Home Meds Active Scripts Ciprofloxacin Hcl* (Ciprofloxacin Hcl*) 500 Mg Tablet, 500 MG PO BID, #14 TAB Prov:IVY,GAGAN V. DECAL [employer]KER 04/15/17 Docusate Sodium (Dok) 100 Mg Capsule, 100 MG PO BID, #60 CAP Prov:IVY,GAGAN V. DECAL MAKER 04/15/17 Tamsulosin Hcl* (Flomax*) 0.4 Mg Cap.er.24h, 0.4 MG PO BID, #30 CAP Prov:FIDEL STEINER PA-C 04/11/17 Hydrocodone/Acetaminophen ([place] 5-325 Tablet) 1 Each Tablet, 1 TAB PO Q6H Y for PAIN, #20 TAB Prov:FIDEL STEINER PA-C 04/11/17 Discontinued Scripts Ibuprofen* (Motrin*) 600 Mg Tab, 600 MG PO Q6, #30 TAB Prov:FIDEL STEINER PA-C 04/11/17 Ciprofloxacin Hcl* (Ciprofloxacin Hcl*) 500 Mg Tablet, 500 MG PO BID for 10 Days , TAB Prov:FIDEL STEINER PA-C 04/11/17 Follow-up Plan FOLLOW UP/APPOINTMENTS Follow-up Plan 1.Follow up with primary care physician in 1 week If you don't have one please let someone know, we can give you resources that may help you pick one. You may also call your insurance company to assign one to you. Review your medication list with your nurse before leaving and if you need new prescriptions please let your nurse know. I may have made changes to your home medications or given you new prescriptions, please let your primary doctor know as well. Stay compliant with your medications and report any side effects to your PCP or pharmacist. Return to the ER if you have any concerns and cannot reach your doctors or call your insurance company, they usually have a nurse that can help you. 2. Call 911 or go to the nearest emergency room if experiencing loss of consciousness, dizziness, chest pain, shortness of breath, vomiting/abdominal pain, speech difficulties, motor weakness or any unusual symptoms. OTHER ORDERS: Other Orders: Followup with in 1 week, call Sunday for appointment [id number] [place] [address] Office Primary Care Provider Care Physician No Primary Pending Labs Laboratory Tests Test 04/15/17 04:14 White Blood Count 7.610^3/ul (4.8-10.8) Red Blood Count 3.6910^6/ul (4.20-5.40) Hemoglobin 11.1g/dl (12.0-16.0) Hematocrit 33.7% (37.0-47.0) Mean Corpuscular Volume 91.3fl (82.0-101.0) Mean Corpuscular Hemoglobin 30.1pg (29.0-33.0) Mean Corpuscular Hemoglobin Concent 32.9g/dl (32.0-37.0) Red Cell Distribution Width 12.4% (11.5-14.5) Platelet Count 97533^3/UL (140-415) Mean Platelet Volume 10.6fl (7.4-10.4) Neutrophils % 53.3% (39.0-77.0) Lymphocytes % 35.9% (15.0-51.0) Monocytes % 6.2% (0.0-11.0) Eosinophils % 3.7% (0.0-7.0) Basophils % 0.5% (0.0-2.0) Nucleated Red Blood Cells % 0.0/100WBC (0.0-0.0) Neutrophils # 4.010^3/ul (1.6-7.5) Lymphocytes # 2.710^3/ul (0.8-2.9) Monocytes # 0.510^3/ul (0.3-0.9) Eosinophils # 0.310^3/ul (0.0-0.5) Basophils # 0.010^3/ul (0.0-0.1) Nucleated Red Blood Cells # 0.010^3/ul (0.0-0.0) Sodium Level 141mmol/L (135-144) Potassium Level 3.9mmol/L (3.5-5.1) Chloride Level 102mmol/L (97-110) Carbon Dioxide Level 26mmol/L (21-31) Anion Gap 17 (8-16) Blood Urea Nitrogen 8mg/dl (7-20) Creatinine 0.58mg/dl (0.44-1.00) Glucose Level 99mg/dl (70-220) Calcium Level 8.8mg/dl (8.4-10.2) Phosphorus Level 3.8mg/dl (2.5-4.9) Magnesium Level 2.1mg/dl (1.7-2.5) GAGAN IVY V. DECAL MAKER Apr 15, 2017 10:37
[2017-04-15] MEDS: CEFTRIAXONE 1 GM/50 ML (PMX) 50 ML IVPB SCH (11:04)
--- NOTE | 2017-04-27 08:25 | OPR ---
DATE OF OPERATION: 04/13/2017 PREOPERATIVE DIAGNOSIS: Left ureteral stone. POSTOPERATIVE DIAGNOSIS: Left ureteral stone. OPERATION PERFORMED: Cystoscopy and insertion of left ureteral stent. SURGEON: Jagjit Shi MD ANESTHESIA: General. DESCRIPTION OF PROCEDURE: The patient was taken to the operating room. She was placed in lithotomy position, prepped and draped in a sterile fashion. Cystoscopic examination was carried out. The b ladder appeared to be normal. The left ureteral orifice was catheterized with a #5 open-ended daniela ter, and a Glidewire was then inserted under fluoroscopic control past the stone into the renal pelv is. A 24 cm 6-[place] double-J stent was then advanced over the wire. This was all done with fluoro scopic control. At the conclusion, the stent appeared to be in good position both proximally and di stally. A Tse catheter was placed. The patient tolerated the procedure well and left the OR in g ood condition. Dictated By: JAGJIT PATE/SOHAM Conf#: [id number] DID#: [id number]
== END 2017-04-15 13:14 | disposition home or self-care (01) | DRG 694 ==
LOC: FTE 10:02 → MS3 11:36 → PP2 20:31
PROVIDERS: ADMIT Internal Medicine; ATTEND Internal Medicine
PROC: 0T778DZ Dilation of Left Ureter with Intraluminal Device, Via Natural or Artificial Opening Endoscopic (ICD-10-PCS; principal; 2017-04-13 08:00)
DX: N13.2 Hydronephrosis with renal and ureteral calculous obstruction (principal); N39.0 Urinary tract infection, site not specified; D72.829 Elevated white blood cell count, unspecified; E66.9 Obesity, unspecified; Z68.34 Body mass index [BMI] 34.0-34.9, adult; K59.03 Drug induced constipation; T40.2X5A Adverse effect of other opioids, initial encounter
CPT/HCPCS: 36415; 71020; 74430; 80048; 80053; 80061; 81001; 83036; 83690; 83735; 84100; 84443; 85025; 87040; 87086; 96361; 96365; 96375; C2617; J0696; J1170; J1885; J2270; J2405; J2765; J3010; J3480; J7030; J7999

== ENCOUNTER 2017-05-02 11:47 | Emergency (ER) | payer OTHER ==
[~2017-05-02] VITALS: Ht 162.6 cm; Wt 84.0 kg
[~2017-05-02 11:47] MED LIST changes: +DOCU-216 PO; -IBUP-1542 PO
[2017-05-02 11:50] VITALS: Ht 162.6 cm; Wt 84.0 kg
--- NOTE | 2017-05-02 14:01 | ERD ---
ER Documentation Chief Complaint Date/Time DATE: 05/02/17 TIME: 13:58 Chief Complaint LEFT FLANK PAIN, HX KIDNEY STONE HPI 47-year-old female with a history of ureteral left-sided kidney stone, status post stent placement with Dr. Shi presents with continuing left-sided flank pain, gross hematuria with blood clots and worsening pain. Patient was admitted to the hospital approximately 2-3 weeks ago for kidney stone with infection, due to inability to follow-up outpatient she was admitted for antibiotics as well as stent placement. She was discharged with Cipro which she has been taking and then she was admitted again to [facility] for pyelonephritis. She states that she is now on Cipro 250 mg taken daily twice a day, she spoke with her primary care doctor who is Dr. Wagner who is advised her to come to the emergency room again for evaluation. She denies fevers or chills. ROS All systems reviewed and are negative except as per history of present illness. Medications Home Meds Active Scripts Hydrocodone/Acetaminophen ([place] 5-325 Tablet) 1 Each Tablet, 1 TAB PO Q6H Y for PAIN, #20 TAB Prov:FIDEL STEINER PA-C 05/02/17 Ciprofloxacin Hcl* (Ciprofloxacin Hcl*) 500 Mg Tablet, 500 MG PO BID, #14 TAB Prov:IVYKRISA V. BORING MACHINE SET UP OPERATOR JIG 04/15/17 Docusate Sodium (Dok) 100 Mg Capsule, 100 MG PO BID, #60 CAP Prov:IVY,GAGAN V. BORING MACHINE SET UP OPERATOR JIG 04/15/17 Tamsulosin Hcl* (Flomax*) 0.4 Mg Cap.er.24h, 0.4 MG PO BID, #30 CAP Prov:FIDEL STEINER PA-C 04/11/17 Hydrocodone/Acetaminophen ([place] 5-325 Tablet) 1 Each Tablet, 1 TAB PO Q6H Y for PAIN, #20 TAB Prov:FIDEL STEINER PA-C 04/11/17 Allergies Allergies: Coded Allergies: No Known Allergy (Unverified , 05/02/17) PMhx/Soc History of Surgery: Yes ( x 4) Anesthesia Reaction: No Hx Neurological Disorder: No Hx Respiratory Disorders: No Hx Cardiac Disorders: No Hx Psychiatric Problems: No Hx Miscellaneous Medical Probl: No Hx Alcohol Use: No Hx Substance Use: No Hx Tobacco Use: No Physical Exam Vitals Vital Signs Date Time Temp Pulse Resp B/P Pulse Ox O2 Delivery O2 Flow Rate FiO2 05/02/17 16:42 98.1 78 18 142/88 98 Room Air 05/02/17 11:50 98.1 73 18 156/95 98 Physical Exam General: Pleasant female, no acute distress HEENT: Head is normocephalic, atraumatic. No scleral icterus. Pupils are equal, round, and reactive. Oral mucous membranes are moist. No pharyngeal erythema. Neck: Supple. Nontender. Lungs: Clear to auscultation. Normal air movement. Heart: Regular rate and rhythm. S1 and S2 are normal. No murmurs, gallops, or rubs. Abdomen: Soft, nontender, nondistended. Bowel sounds are normoactive. Extremities: No clubbing or cyanosis. Normal pulses. Moving extremities x 4. No weakness. Neurologic: Alert and oriented 3. No focal deficits. Skin: Normal turgor. No rash or lesions. Result Diagram: 05/02/17 1400 05/02/17 1400 Results 24 hrs Laboratory Tests Test 05/02/17 14:00 White Blood Count 7.110^3/ul Red Blood Count 4.3510^6/ul Hemoglobin 13.4g/dl Hematocrit 39.6% Mean Corpuscular Volume 91.0fl Mean Corpuscular Hemoglobin 30.8pg Mean Corpuscular Hemoglobin Concent 33.8g/dl Red Cell Distribution Width 12.2% Platelet Count 92352^3/UL Mean Platelet Volume 10.3fl Neutrophils % 48.3% Lymphocytes % 38.5% Monocytes % 7.5% Eosinophils % 4.4% Basophils % 1.0% Nucleated Red Blood Cells % 0.0/100WBC Neutrophils # (Manual) 3.410^3/ul Lymphocytes # 2.710^3/ul Monocytes # 0.510^3/ul Eosinophils # 0.310^3/ul Basophils # 0.110^3/ul Nucleated Red Blood Cells # 0.010^3/ul Urine Color AUGUST Urine Clarity CLOUDY Urine pH 5.0 Urine Specific [place] 1.029 Urine Ketones TRACEmg/dL Urine Nitrite NEGATIVEmg/dL Urine Bilirubin NEGATIVEmg/dL Urine Urobilinogen NEGATIVEmg/dL Urine Leukocyte Esterase TRACELeu/ul Urine Microscopic RBC > 182/HPF Urine Microscopic WBC > 182/HPF Urine Calcium Oxalate Crystals MANY/HPF Urine Bacteria FEW/HPF Urine Yeast (Budding) MANY/HPF Urine Hemoglobin 3+mg/dL Urine Glucose NEGATIVEmg/dL Urine Total Protein 2+mg/dl Sodium Level 142mmol/L Potassium Level 3.7mmol/L Chloride Level 101mmol/L Carbon Dioxide Level 27mmol/L Anion Gap 18 Blood Urea Nitrogen 17mg/dl Creatinine 0.72mg/dl Glucose Level 104mg/dl Calcium Level 9.3mg/dl Total Bilirubin 0.0mg/dl Direct Bilirubin 0.00mg/dl Indirect Bilirubin 0.0mg/dl Aspartate Amino Transf (AST/SGOT) 33IU/L Alanine Aminotransferase (ALT/SGPT) 49IU/L Alkaline Phosphatase 83IU/L Total Protein 7.9g/dl Albumin 4.2g/dl Globulin 3.70g/dl Albumin/Globulin Ratio 1.13 Current Medications Medications (Trade) Dose Ordered Sig/Ana Route PRN Reason Start Time Stop Time Status Last Admin Dose Admin Sodium Chloride (NS) 1,000 ml @ 1,000 mls/hr Q1H ONCE IV 05/02/17 14:30 05/02/17 15:29 DC 05/02/17 14:24 Ketorolac Tromethamine (Toradol) 30 mg ONCE STAT IV 05/02/17 15:26 05/02/17 15:27 DC 05/02/17 15:34 Ondansetron HCl (Zofran Inj) 4 mg ONCE STAT IV 05/02/17 15:26 05/02/17 15:27 DC 05/02/17 15:34 DIAGNOSTIC IMAGING REPORT Patient: OPAL PLUMMER : 1970 Age: 47 Sex: F [id number] DOS: 05/02/17 1356 Ordering MD: FIDEL STEINER PA-C Location: [facility] Room/Bed: PROCEDURE: CT Abdomen and Pelvis without contrast. CLINICAL INDICATION: Left flank pain TECHNIQUE: CT scan of the abdomen and pelvis without contrast was performed on a multidetector high-resolution CT scanner. The patient was scanned without intravenous contrast. Coronal and sagittal reformatted images were obtained from the axial source images. Images were reviewed on a high-resolution PACS workstation. One or more of the following dose reduction techniques were used: Automated exposure control, adjustment of the mA and/or kV according to patient size, use of iterative reconstruction technique. The total exam CTDI equals 21.9 mGy and the total exam DLP equals 1263.28 mGy-cm. COMPARISON: CT from 04/13/2017. FINDINGS: CT abdomen and pelvis: The lung bases are clear. The heart size is normal in size. There is interval placement of a double-J left ureteral stent which appears in good position. There is interval decrease moderate hydronephrosis. Left perinephric fat stranding is decreased. The previously seen 9 mm left ureteral stone is again seen, now more distal within the left ureter, adjacent to the ureteral stent, approximately 8-9 cm from the left ureterovesicular junction. A second 5 mm ureteral calculus is present more distally within the left ureter, approximately 2 cm from the left ureterovesicular junction. The liver is normal in size and density without focal mass or intrahepatic biliary dilatation. The spleen is normal in size and homogeneous in density. The pancreas as visualized is normal. The gallbladder shows no evidence of stones or distension . The adrenal glands are normal. The stomach is partially collapsed, but is grossly unremarkable. The small bowels are unremarkable. The colon and rectum are normal. The appendix is normal. There is no evidence of appendicitis or diverticulitis. The pelvic organs are normal. The bladder is normal. There is no abdominal or pelvic adenopathy, free fluid, free air or mass. There is a small fat-containing umbilical hernia. Scattered diverticula are present throughout the distal colon. The aorta is normal in caliber and course. The osseous structures are intact. No osteolytic or osteoblastic lesions are identified. The soft tissues are within normal limits. Lack of IV and oral contrast limits sensitivity of exam. IMPRESSION: 1. Interval placement of a double-J left ureteral stent with decreased moderate left hydronephrosis. Two left-sided ureteral calculi are present adjacent to the distal aspect of the ureteral stent, as described above and pictured below. Interval decreased left perinephric fat stranding. 2. Small fat-containing umbilical hernia. 3. Diverticulosis without evidence of diverticulitis. RPTAT: JJ .Randy Gomez MD, MD Date Time Electronically viewed and signed by .Randy Gomez MD, on 05/02/2017 15:51 .A/ CC: FIDEL STEINER PA-C Procedures/MDM AYAZ course: Patient had blood work obtained again as well as urine analysis, urine cultures were sent. I spoke with my attending physician, Dr. Vang, due to her extensive history, stent placement and worsening symptoms including gross hematuria, passage of clots is agreed upon that patient would warrant another CT scan to evaluate the stent. I spoke with Dr. Shi, he states that sentence in place, no further hospitalization, intervention warranted at this time. He states that he set up follow-up with her primary care doctor, who is already done the referral to see a urologist outpatient. Medical decision makin-year-old female with a history of stent placement, large ureteral kidney stone 9 mm presents with continuing pain. Patient's primary doctor has referred her to urology however due to insurance limitations she was not able to follow-up with a specialist, urologist, oUreteral stent is in place, 9 mm stone is adjacent to the stent, also 5 mm stone present. Patient does not have any evidence of renal insufficiency, I doubt infection. She has a follow-up with her primary care doctor, who has arranged outpatient referral to see a urologist. Departure Diagnosis: Primary Impression: Kidney stone Condition: FIDEL Riggs PA-C May 02, 2017 14:01
[2017-05-02 14:11] LABS: BASOPHIL # 0.1 10^3/ul (0.0-0.1); EOSINOPHILS # 0.3 10^3/ul (0.0-0.5); EOSINOPHILS % 4.4 % (0.0-7.0); HEMATOCRIT 39.6 % (37.0-47.0); HEMOGLOBIN 13.4 g/dl (12.0-16.0); LYMPHOCYTES # 2.7 10^3/ul (0.8-2.9); LYMPHOCYTES % 38.5 % (15.0-51.0); MEAN CORPUSCULAR HEMOGLOBIN 30.8 pg (29.0-33.0); MEAN CORPUSCULAR HGB CONC 33.8 g/dl (32.0-37.0); MEAN PLATELET VOLUME 10.3 fl (7.4-10.4); MONOCYTE # 0.5 10^3/ul (0.3-0.9); MONOCYTES % 7.5 % (0.0-11.0); NEUTROPHILS % 48.3 % (39.0-77.0); PLATELET COUNT 343 10^3/UL (140-415); RED BLOOD COUNT 4.35 10^6/ul (4.20-5.40); RED CELL DISTRIBUTION WIDTH 12.2 % (11.5-14.5); WHITE BLOOD COUNT 7.1 10^3/ul (4.8-10.8)
[2017-05-02 14:19] LABS: ADD UMIC YES; UR ASCORBIC ACID NEGATIVE (NEGATIVE); UR BACTERIA FEW /HPF (NONE SEEN); UR BILIRUBIN (Dip) NEGATIVE (NEGATIVE); UR BLOOD (Dip) 3+ mg/dL (NEGATIVE); UR BUDDING YEAST MANY /HPF (NONE SEEN); UR CLARITY CLOUDY (CLEAR); UR COLOR AMBER (YELLOW); UR GLUCOSE (Dip) NEGATIVE (NEGATIVE); UR KETONES (Dip) TRACE mg/dL (NEGATIVE); UR LEUKOCYTE ESTERASE (Dip) TRACE Leu/ul (NEGATIVE); UR NITRITE (Dip) NEGATIVE (NEGATIVE); UR RBC > 182 /HPF (0-5); UR SPECIFIC GRAVITY (Dip) 1.029 (1.003-1.030); UR TOTAL PROTEIN (Dip) 2+ mg/dl (NEGATIVE); UR UROBILINOGEN (Dip) NEGATIVE (NEGATIVE); UR WBC CLUMPS MANY /HPF (NONE SEEN)
[2017-05-02] MEDS ORDERED: SOD CHLORIDE 0.9% 1,000 ML IV ONE (14:30)
[2017-05-02 14:36] LABS: ALBUMIN 4.2 g/dl (3.3-4.9); ALBUMIN/GLOBULIN RATIO 1.13; CALCIUM 9.3 mg/dl (8.4-10.2); CREATININE 0.72 mg/dl (0.44-1.00); POTASSIUM 3.7 mmol/L (3.5-5.1); TOTAL PROTEIN 7.9 g/dl (6.1-8.1)
[2017-05-02] MEDS ORDERED: ONDANSETRON 4 MG INJ IV STA (15:26)
[2017-05-02] MEDS ORDERED: KETOROLAC 30 MG INJ IV STA (15:26)
--- NOTE | 2017-05-02 15:52 | RADRPT ---
PROCEDURE: CT Abdomen and Pelvis without contrast. CLINICAL INDICATION: Left flank pain TECHNIQUE: CT scan of the abdomen and pelvis without contrast was performed on a multidetector hig h-resolution CT scanner. The patient was scanned without intravenous contrast. Coronal and sagittal reformatted images were obtained from the axial source images. Images were reviewed on a high-resol [employer] PACS workstation. One or more of the following dose reduction techniques were used: Automated exposure control, adjustment of the mA and/or kV according to patient size, use of iterative recon struction technique. The total exam CTDI equals 21.9 mGy and the total exam DLP equals 1263.28 mGy- cm. COMPARISON: CT from 04/13/2017. FINDINGS: CT abdomen and pelvis: The lung bases are clear. The heart size is normal in size. There is interval placement of a double-J left ureteral stent which appears in good position. There is interval decrease moderate hydronephrosis. Left perinephric fat stranding is decreased. The pr eviously seen 9 mm left ureteral stone is again seen, now more distal within the left ureter, adjace nt to the ureteral stent, approximately 8-9 cm from the left ureterovesicular junction. A second 5 m m ureteral calculus is present more distally within the left ureter, approximately 2 cm from the lef t ureterovesicular junction. The liver is normal in size and density without focal mass or intrahepatic biliary dilatation. The spleen is normal in size and homogeneous in density. The pancreas as visualized is normal. The gall bladder shows no evidence of stones or distension . The adrenal glands are normal. The stomach is partially collapsed, but is grossly unremarkable. The small bowels are unremarkable. The colon and rectum are normal. The appendix is normal. There is no evidence of appendicitis or div erticulitis. The pelvic organs are normal. The bladder is normal. There is no abdominal or pelvic ad enopathy, free fluid, free air or mass. There is a small fat-containing umbilical hernia. Scattered diverticula are present throughout the distal colon. The aorta is normal in caliber and course. The osseous structures are intact. No osteolytic or osteo blastic lesions are identified. The soft tissues are within normal limits. Lack of IV and oral contr ast limits sensitivity of exam. IMPRESSION: 1. Interval placement of a double-J left ureteral stent with decreased moderate left hydronephrosis . Two left-sided ureteral calculi are present adjacent to the distal aspect of the ureteral stent, as described above and pictured below. Interval decreased left perinephric fat stranding. 2. Small fat-containing umbilical hernia. 3. Diverticulosis without evidence of diverticulitis. RPTAT: JJ .Randy Gomez MD, Date Time Electronically viewed and signed by .Randy Gomez MD, on 05/02/2017 15:51 .A/
[2017-05-02] MEDS ORDERED: HYDR-906 PO (16:22)
[2017-05-02 16:42] VITALS: BP 142/88; PULSE 78; RESP 18; TEMP 98.1
== END 2017-05-02 16:43 | disposition home or self-care (01) ==
LOC: FTE 11:47
DX: N20.0 Calculus of kidney (principal)
CPT/HCPCS: 36415; 74176; 80053; 81001; 85025; 87086; 96374; 96375; J1885; J2405; J7030; Z7502

== ENCOUNTER 2017-05-05 16:32 | Inpatient (IN) | payer OTHER ==
[~2017-05-05] VITALS: Ht 162.6 cm; Wt 88.2 kg
[2017-05-05] MEDS ORDERED: HYDROmorphONE 1 MG/ML SYG IV STA (17:10)
[2017-05-05] MEDS ORDERED: ONDANSETRON 4 MG INJ IV STA (17:23)
[2017-05-05] MEDS ORDERED: ONDANSETRON 4 MG INJ ONE (17:25)
[2017-05-05] MEDS ORDERED: VANCOMYCIN 1.5 GM in SOD CHLORIDE 0.9% 250 ML IVPB ONE (17:30)
[2017-05-05 17:36] LABS: BASOPHIL # 0.1 10^3/ul (0.0-0.1); BASOPHILS % 0.7 % (0.0-2.0); EOSINOPHILS # 0.4 10^3/ul (0.0-0.5); EOSINOPHILS % 5.1 % (0.0-7.0); HEMATOCRIT 36.1 % (37.0-47.0); HEMOGLOBIN 12.1 g/dl (12.0-16.0); LYMPHOCYTES # 3.1 10^3/ul (0.8-2.9); LYMPHOCYTES % 37.7 % (15.0-51.0); MEAN CORPUSCULAR HEMOGLOBIN 30.5 pg (29.0-33.0); MEAN CORPUSCULAR HGB CONC 33.5 g/dl (32.0-37.0); MEAN CORPUSCULAR VOLUME 90.9 fl (82.0-101.0); MEAN PLATELET VOLUME 10.6 fl (7.4-10.4); MONOCYTE # 0.5 10^3/ul (0.3-0.9); MONOCYTES % 6.4 % (0.0-11.0); NEUTROPHILS % 49.7 % (39.0-77.0); PLATELET COUNT 307 10^3/UL (140-415); RED BLOOD COUNT 3.97 10^6/ul (4.20-5.40); RED CELL DISTRIBUTION WIDTH 12.2 % (11.5-14.5); WHITE BLOOD COUNT 8.1 10^3/ul (4.8-10.8)
[2017-05-05 17:59] LABS: CALCIUM 9.1 mg/dl (8.4-10.2); CREATININE 0.73 mg/dl (0.44-1.00); POTASSIUM 3.8 mmol/L (3.5-5.1)
[2017-05-05] MEDS ORDERED: ONDANSETRON 4 MG INJ IV PRN (18:00)
[2017-05-05] MEDS ORDERED: ACETAMINOPHEN 325 MG TAB PO PRN ×2 (18:00→19:00)
--- NOTE | 2017-05-05 18:47 | ERA ---
ER Documentation Chief Complaint Date/Time DATE: 05/05/17 TIME: 18:47 Chief Complaint + CULTURE RESULTS, CALLED TO COME IN HPI 47-year-old female with a history of left-sided ureterolithiasis complicated by UTI status post placement of ureter stents by Dr. Shi 1 month ago is presenting for an abnormal urine culture. She was called by the hospital to return. The patient was here on May 02 for left flank pain and urinary pain. After the stents were placed, she has been on Cipro up until yesterday. When she came to the ED, her antibiotics were not changed. She was told to follow-up with her primary care doctor and urology. She is awaiting lithotripsy but does not currently have a urologist. She continues to complain of constant left flank pain, 9 out of 10, radiating to her abdomen. She has associated dysuria and occasional hematuria. Occasional fevers and chills. No nausea, vomiting, diarrhea. ROS All systems reviewed and are negative except as per history of present illness. Medications Home Meds Active Scripts Hydrocodone/Acetaminophen ([place] 5-325 Tablet) 1 Each Tablet, 1 TAB PO Q6H Y for PAIN, #20 TAB Prov:FIDEL STEINER PA-C 05/02/17 Tamsulosin Hcl* (Flomax*) 0.4 Mg Cap.er.24h, 0.4 MG PO BID, #30 CAP Prov:FIDEL STEINER PA-C 04/11/17 Discontinued Scripts Ciprofloxacin Hcl* (Ciprofloxacin Hcl*) 500 Mg Tablet, 500 MG PO BID, #14 TAB Prov:IVY,GAGAN V. COAL INSPECTOR 04/15/17 Docusate Sodium (Dok) 100 Mg Capsule, 100 MG PO BID, #60 CAP Prov:IVY,GAGAN V. COAL INSPECTOR 04/15/17 Hydrocodone/Acetaminophen ([place] 5-325 Tablet) 1 Each Tablet, 1 TAB PO Q6H Y for PAIN, #20 TAB Prov:FIDEL STEINER PA-C 04/11/17 Allergies Allergies: Coded Allergies: No Known Allergy (Unverified , 05/05/17) PMhx/Soc History of Surgery: Yes ( x 4, lt urethral stent ) Anesthesia Reaction: No Hx Neurological Disorder: No Hx Respiratory Disorders: No Hx Cardiac Disorders: No Hx Psychiatric Problems: No Hx Miscellaneous Medical Probl: Yes (kidney stone ) Hx Alcohol Use: No Hx Substance Use: No Hx Tobacco Use: No Smoking Status: Never smoker FmHx Family History: No diabetes Physical Exam Vitals Vital Signs Date Time Temp Pulse Resp B/P Pulse Ox O2 Delivery O2 Flow Rate FiO2 05/05/17 16:36 98.9 68 18 137/77 99 Physical Exam Const: No apparent distress, well-appearing Head: Atraumatic Eyes: Normal Conjunctiva ENT: Normal External Ears, Nose and Mouth. Neck: Full range of motion..~ No meningismus. Resp: Clear to auscultation bilaterally Cardio: Regular rate and rhythm, no murmurs Abd: Soft, non tender, non distended. Normal bowel sounds Skin: No petechiae or rashes Back: Left CVA tenderness present Ext: No cyanosis, or edema Neur: Awake and alert Psych: Normal Mood and Affect Result Diagram: 05/05/17 1725 05/05/17 1725 Results 24 hrs Laboratory Tests Test 05/05/17 17:25 05/05/17 18:50 05/05/17 19:02 White Blood Count 8.110^3/ul Red Blood Count 3.9710^6/ul Hemoglobin 12.1g/dl Hematocrit 36.1% Mean Corpuscular Volume 90.9fl Mean Corpuscular Hemoglobin 30.5pg Mean Corpuscular Hemoglobin Concent 33.5g/dl Red Cell Distribution Width 12.2% Platelet Count 69119^3/UL Mean Platelet Volume 10.6fl Neutrophils % 49.7% Lymphocytes % 37.7% Monocytes % 6.4% Eosinophils % 5.1% Basophils % 0.7% Nucleated Red Blood Cells % 0.0/100WBC Neutrophils # (Manual) 4.010^3/ul Lymphocytes # 3.110^3/ul Monocytes # 0.510^3/ul Eosinophils # 0.410^3/ul Basophils # 0.110^3/ul Nucleated Red Blood Cells # 0.010^3/ul Sodium Level 142mmol/L Potassium Level 3.8mmol/L Chloride Level 108mmol/L Carbon Dioxide Level 26mmol/L Anion Gap 12 Blood Urea Nitrogen 15mg/dl Creatinine 0.73mg/dl Glucose Level 94mg/dl Calcium Level 9.1mg/dl Urine Color YELLOW Urine Clarity CLOUDY Urine pH 5.0 Urine Specific [place] 1.026 Urine Ketones NEGATIVEmg/dL Urine Nitrite NEGATIVEmg/dL Urine Bilirubin NEGATIVEmg/dL Urine Urobilinogen NEGATIVEmg/dL Urine Leukocyte Esterase 3+Ana/ul Urine Microscopic RBC > 182/HPF Urine Microscopic WBC 79/HPF Urine Squamous Epithelial Cells MODERATE/HPF Urine Bacteria FEW/HPF Urine Mucus FEW/HPF Urine Hemoglobin 3+mg/dL Urine Glucose NEGATIVEmg/dL Urine Total Protein 2+mg/dl Bedside Urine pH (LAB) 6.0 Bedside Urine Protein (LAB) 2+ Bedside Urine Glucose (UA) Negative Bedside Urine Ketones (LAB) Negative Bedside Urine Blood 3+ Bedside Urine Nitrite (LAB) Negative Bedside Urine Leukocyte Esterase (L 1+ Current Medications Medications (Trade) Dose Ordered Sig/Ana Route PRN Reason Start Time Stop Time Status Last Admin Dose Admin Vancomycin HCl/ Sodium Chloride (Vancocin/NS) 250 ml @ 83.333 mls/ hr ONCE ONCE IVPB 05/05/17 17:30 05/05/17 20:29 05/05/17 18:15 Hydromorphone HCl (Dilaudid) 1 mg ONCE STAT IV 05/05/17 17:10 05/05/17 17:13 DC 05/05/17 17:31 Ondansetron HCl (Zofran Inj) 4 mg ONCE STAT IV 05/05/17 17:23 05/05/17 17:25 DC 05/05/17 17:31 Ondansetron HCl (Zofran Inj) 4 mg STK-MED ONCE .ROUTE 05/05/17 17:25 05/05/17 17:26 DC Ondansetron HCl (Zofran Inj) 4 mg BRIDGE ORDER PRN IV NAUSEA AND/OR VOMITING 05/05/17 18:00 05/06/17 17:59 05/05/17 19:19 Acetaminophen (Tylenol Tab) 650 mg ER BRIDGE PRN PO MILD PAIN/FEVER 05/05/17 18:00 05/06/17 17:59 IV Flush (NS 3 ml) 3 ml PER PROTOCOL IV 05/05/17 19:00 Ondansetron HCl (Zofran Inj) 4 mg Q6H PRN IV NAUSEA AND/OR VOMITING 05/05/17 19:00 Acetaminophen (Tylenol Tab) 650 mg Q6H PRN PO PAIN LEVEL 1-3 OR FEVER 05/05/17 19:00 Acetaminophen/ Hydrocodone Bitart ([place] (5/325)) 1 tab Q6H PRN PO MODERATE PAIN LEVEL 4-6 05/05/17 19:00 Morphine Sulfate (morphine) 2 mg Q4H PRN IV SEVERE PAIN LEVEL 7-10 05/05/17 19:00 05/05/17 19:20 Docusate Sodium (Colace) 100 mg Q12H PRN PO CONSTIPATION 05/05/17 19:00 Magnesium Hydroxide (Milk Of Mag) 30 ml DAILY PRN PO CONSTIPATION 05/05/17 19:00 Sodium Biphosphate/ Sodium Phosphate (Fleet Enema) 133 ml DAILY PRN RI CONSTIPATION 05/05/17 19:00 Heparin Sodium (Porcine) (Heparin (5000 Units/0.5 ml)) 5,000 unit Q12 SC 05/05/17 21:00 Lorazepam 0.5 mg 0.5 mg Q6H PRN IV ANXIETY 05/05/17 19:00 Sodium Chloride (NS) 1,000 ml @ 100 mls/hr Q10H IV 05/05/17 18:53 05/05/17 19:28 Albuterol/ Ipratropium (Duoneb) 3 ml Q4H RESP THERAPY PRN HHN SHORTNESS OF BREATH 05/05/17 19:00 Vancomycin HCl (Vanco Iv Per Pharmacy) VANCOMYCIN PER PHARMACY NOTE XX 05/05/17 19:00 Hydralazine HCl (Apresoline) 10 mg Q6H PRN IV ELEVATED BLOOD PRESSURE 05/05/17 19:00 Nitroglycerin (Nitroglycerin (Sl Tab) 0.4 Mg) 1 tab Q5M PRN SL ANGINA 05/05/17 19:00 Tamsulosin HCl 0.4 mg 0.4 mg BID PO 05/05/17 21:00 Vancomycin HCl (Vancocin) 250 ml @ 125 mls/hr Q12H IVPB 05/06/17 03:00 Procedures/MDM CBC is within normal limits BMP is within normal limits Urinalysis shows evidence of infection and hematuria MDM Patient's urine culture grew out a resistant bacteria. Currently she is afebrile and well-appearing. The bacteria is only sensitive to vancomycin per her culture. The patient continues to have left flank pain and worsening dysuria. IV vancomycin was started. Septic workup was not done as the patient does not meet sepsis criteria. I spoke with Dr. Steiner who states the patient does not necessarily need to be treated with IV antibiotics. However since the patient continues to be symptomatic and having worsening dysuria, I will admit her for further evaluation and observation. I spoke with Dr. Cortes, who will accept this patient for admission. Departure Diagnosis: Primary Impression: Urinary tract infection, site not specified Qualified Code: N39.0 - Urinary tract infection with hematuria, site unspecified Additional Impression: History of urinary stone Condition: Stable IRMA GARCIA MD May 05, 2017 18:47
[2017-05-05 18:56] LABS: URINE BLOOD (Dip) POC 3+ (NEGATIVE)
[2017-05-05] MEDS ORDERED: NACL 0.9% 3 ML SYG IV SCH (19:00)
[2017-05-05] MEDS ORDERED: VANCOMYCIN IV PER PHARMACY XX SCH (19:00)
[2017-05-05] MEDS ORDERED: NA PHOSPHATE/BIPHOS 133 ML ENEMA PR PRN (19:00)
[2017-05-05] MEDS ORDERED: LORAZEPAM 2 MG INJ IV PRN (19:00)
[2017-05-05] MEDS ORDERED: NITROGLYCERIN (SL) 0.4 MG TAB SL PRN (19:00)
[2017-05-05] MEDS ORDERED: DOCUSATE SODIUM 100 MG CAP PO PRN (19:00)
[2017-05-05] MEDS ORDERED: hydrALAzine 20 MG INJ IV PRN (19:00)
[2017-05-05] MEDS ORDERED: ALBUTEROL/IPRATROPIUM (NEB) 3 ML AMP HHN PRN (19:00)
[2017-05-05] MEDS ORDERED: MAGNESIUM HYDROXIDE 30ML CUP PO PRN (19:00)
[2017-05-05] MEDS: morphine 2 MG INJ IV PRN ×2 (19:20→23:49)
[2017-05-05] MEDS: SOD CHLORIDE 0.9% 1,000 ML IV SCH ×2 (19:28→21:22)
[2017-05-05 19:34] LABS: ADD UMIC YES; UR ASCORBIC ACID NEGATIVE (NEGATIVE); UR BACTERIA FEW /HPF (NONE SEEN); UR BILIRUBIN (Dip) NEGATIVE (NEGATIVE); UR BLOOD (Dip) 3+ mg/dL (NEGATIVE); UR CLARITY CLOUDY (CLEAR); UR COLOR YELLOW (YELLOW); UR GLUCOSE (Dip) NEGATIVE (NEGATIVE); UR KETONES (Dip) NEGATIVE (NEGATIVE); UR LEUKOCYTE ESTERASE (Dip) 3+ Leu/ul (NEGATIVE); UR MUCUS FEW /HPF (NONE SEEN); UR NITRITE (Dip) NEGATIVE (NEGATIVE); UR RBC > 182 /HPF (0-5); UR SPECIFIC GRAVITY (Dip) 1.026 (1.003-1.030); UR SQUAMOUS EPITHELIAL CELL MODERATE /HPF (FEW); UR TOTAL PROTEIN (Dip) 2+ mg/dl (NEGATIVE); UR UROBILINOGEN (Dip) NEGATIVE (NEGATIVE)
[2017-05-05 20:00] VITALS: Ht 162.6 cm; Wt 88.2 kg
[2017-05-05 20:14] LABS: INR 0.93; PROTIME 12.5 Sec (12.2-14.2)
[2017-05-05 20:15] LABS: PARTIAL THROMBOPLASTIN TIME 27.1 Sec (25.0-35.0)
[2017-05-05] MEDS: TAMSULOSIN (SR) 0.4 MG CAP PO SCH (21:22)
[2017-05-05] MEDS: HEPARIN 5,000 UNIT/0.5 ML VIAL SC SCH (21:23)
[2017-05-05] MEDS: HYDROCODONE/APAP (5/325) TAB PO PRN (23:03)
[2017-05-05 23:12] VITALS: BP 139/66; RESP 16
[2017-05-06] MEDS: ZOLPIDEM 5 MG TAB PO PRN ×3 (00:28→22:27)
[2017-05-06] MEDS ORDERED: ZOLPIDEM 5 MG TAB PO PRN (00:30)
--- NOTE | 2017-05-06 02:44 | HP ---
Date/Time of Note Date/Time of Note DATE: 05/06/17 TIME: 02:28 Assessment/Plan VTE Prophylaxis VTE Prophylaxis Intervention: SCD's Lines/Catheters IV Catheter Type (from [facility]): Peripheral IV Urinary Cath still in place: No Assessment/Plan Assessment/Plan 1. UTI -Urine culture from 3 days ago done here in the ER grew Corynebacterium that is only susceptible to vancomycin -Continue vancomycin -Follow-up repeat urine culture -ID consult 2. History of left ureteral stone, status post stent placement [address] Shi -Dr. Steiner, the urologist was consulted in the ER. Will update him about patient condition in a.m. and will determine if a urology evaluation is warranted. HPI/ROS Admit Date/Time Admit Date/Time May 05, 2017 at 17:49 Hx of Present Illness 47-year-old female with a history of ureteral left-sided kidney stone, status post stent placement by Dr. Shi on 04/13/17. Patient presented to our ER 3 days ago complaining of continuing left-sided flank pain, gross hematuria with blood clots and worsening pain. Patient was admitted here about 3 weeks ago for kidney stone and UTI. She was seen by urology and had a left ureteral stent placement. She was discharged with Cipro which she has been taking and then she was admitted again to [facility] for pyelonephritis and was discharged with Cipro. As mentioned above, she came to our ER 3 days ago with above-stated symptoms. A urine culture was done and she was discharged with Cipro. The urine culture now grew Corynebacterium that is only susceptible to vancomycin and as such she was cold to come to the hospital and now admitted for IV antibiotic. She reports still having left flank pain and intermittent gross hematuria. When she presented to the ER today, vitals were stable. CBC and BMP within acceptable range. Urinalysis consistent with a severe UTI. CT abdomen/pelvis that was done 3 days ago showed Interval placement of a double -J left ureteral stent with decreased moderate left hydronephrosis. Two left- sided ureteral calculi are present adjacent to the distal aspect of the ureteral stent and interval decreased left perinephric fat stranding. . PMH/Family/Social Past Medical History Medical History: urinary tract infection, other (Left ureteral stone, status post stent placement) Past Surgical History Past Surgical Hx: other (Left ureteral stent placement) Social History Alcohol Use: none Smoking Status: Never smoker Drug Use: none Exam/Review of Systems Vital Signs Vitals Vital Signs Date Time Temp Pulse Resp B/P Pulse Ox O2 Delivery O2 Flow Rate FiO2 05/05/17 23:12 97.8 61 16 139/66 99 Exam Constitutional: alert, oriented, well developed Head: atraumatic, normocephalic Eyes: EOMI, PERRL Respiratory: clear to auscultation, normal air movement Cardiovascular: nl pulses, regular rate and rhythm Gastrointestinal: other (Left lung tenderness), soft Extremities: normal pulses Labs Result Diagram: 05/05/17 1725 05/05/17 1725 Medications Medications Current Medications Ondansetron HCl (Zofran Inj) 4 mg Q6H PRN IV NAUSEA AND/OR VOMITING; Start 05/05 at 19:00 Acetaminophen (Tylenol Tab) 650 mg Q6H PRN PO PAIN LEVEL 1-3 OR FEVER; Start at 19:00 Acetaminophen/ Hydrocodone Bitart ([place] (5/325)) 1 tab Q6H PRN PO MODERATE PAIN LEVEL 4-6 Last administered on 05/05/17 23:03; Admin Dose 1 TAB; Start 05/05 at 19:00 Morphine Sulfate (morphine) 2 mg Q4H PRN IV SEVERE PAIN LEVEL 7-10 Last administered on 05/05/17 23:49; Admin Dose 2 MG; Start 05/05/17 at 19:00 Docusate Sodium (Colace) 100 mg Q12H PRN PO CONSTIPATION; Start 05/05/17 at 19: 00 Magnesium Hydroxide (Milk Of Mag) 30 ml DAILY PRN PO CONSTIPATION; Start at 19:00 Sodium Biphosphate/ Sodium Phosphate (Fleet Enema) 133 ml DAILY PRN [place] CONSTIPATION; Start 05/05/17 at 19:00 Heparin Sodium (Porcine) (Heparin (5000 Units/0.5 ml)) 5,000 unit Q12 SC Last administered on 05/05/17 21:23; Admin Dose 5,000 UNIT; Start 05/05/17 at 21:00 Lorazepam 0.5 mg 0.5 mg Q6H PRN IV ANXIETY; Start 05/05/17 at 19:00 Sodium Chloride (NS) 1,000 ml @ 100 mls/hr Q10H IV Last administered on 21:22; Admin Dose 100 MLS/HR; Start 05/05/17 at 18:53 Vancomycin HCl (Vanco Iv Per Pharmacy) VANCOMYCIN PER PHARMACY NOTE XX ; Start 05/05/17 at 19:00 Hydralazine HCl (Apresoline) 10 mg Q6H PRN IV ELEVATED BLOOD PRESSURE; Start at 19:00 Nitroglycerin (Nitroglycerin (Sl Tab) 0.4 Mg) 1 tab Q5M PRN SL ANGINA; Start at 19:00 Tamsulosin HCl 0.4 mg 0.4 mg BID PO Last administered on 05/05/17 21:22; Admin Dose 0.4 MG; Start 05/05/17 at 21:00 Vancomycin HCl (Vancocin) 250 ml @ 125 mls/hr Q12H IVPB ; Start 05/06/17 at 03: 00 REMINGTON ZAVALA MD May 06, 2017 02:40
[2017-05-06] MEDS: VANCOMYCIN 1 GM in NS 250 ML IVPB SCH ×2 (03:12→15:25)
[2017-05-06 03:35] VITALS: BP 119/61; RESP 18
[2017-05-06 05:32] LABS: BASOPHIL # 0.1 10^3/ul (0.0-0.1); BASOPHILS % 0.7 % (0.0-2.0); EOSINOPHILS # 0.4 10^3/ul (0.0-0.5); EOSINOPHILS % 5.4 % (0.0-7.0); HEMATOCRIT 34.1 % (37.0-47.0); HEMOGLOBIN 11.1 g/dl (12.0-16.0); LYMPHOCYTES # 3.7 10^3/ul (0.8-2.9); MEAN CORPUSCULAR HEMOGLOBIN 29.8 pg (29.0-33.0); MEAN CORPUSCULAR HGB CONC 32.6 g/dl (32.0-37.0); MEAN CORPUSCULAR VOLUME 91.4 fl (82.0-101.0); MEAN PLATELET VOLUME 10.7 fl (7.4-10.4); MONOCYTE # 0.4 10^3/ul (0.3-0.9); MONOCYTES % 5.6 % (0.0-11.0); PLATELET COUNT 273 10^3/UL (140-415); RED BLOOD COUNT 3.73 10^6/ul (4.20-5.40); RED CELL DISTRIBUTION WIDTH 12.1 % (11.5-14.5); WHITE BLOOD COUNT 7.2 10^3/ul (4.8-10.8)
[2017-05-06 06:00] LABS: CREATININE 0.59 mg/dl (0.44-1.00); MAGNESIUM 1.6 mg/dl (1.7-2.5); POTASSIUM 3.7 mmol/L (3.5-5.1)
[2017-05-06 06:03] LABS: CHOL/HDL RATIO 3.6 RATIO
[2017-05-06] MEDS: morphine 2 MG INJ IV PRN ×2 (06:17→11:02)
[2017-05-06] MEDS: HYDROCODONE/APAP (5/325) TAB PO PRN ×2 (07:54→19:48)
[2017-05-06] MEDS: SOD CHLORIDE 0.9% 1,000 ML IV SCH ×2 (07:55→20:16)
[2017-05-06 08:05] VITALS: BP 128/60; RESP 16
[2017-05-06 08:19] LABS: THYROID STIMULATING HORMONE 2.47 MIU/L (0.465-4.680)
[2017-05-06] MEDS: TAMSULOSIN (SR) 0.4 MG CAP PO SCH ×2 (08:46→20:16)
[2017-05-06] MEDS: HEPARIN 5,000 UNIT/0.5 ML VIAL SC SCH ×2 (08:50→20:14)
[2017-05-06] MEDS: HYDROmorphONE 1 MG/ML SYG IV PRN ×3 (13:17→21:25)
[2017-05-06 14:20] VITALS: BP 116/64; RESP 18
--- NOTE | 2017-05-06 15:04 | PN ---
Date/Time of Note Date/Time of Note DATE: 05/06/17 TIME: 15:00 Assessment/Plan VTE Prophylaxis VTE Prophylaxis Intervention: heparin Lines/Catheters IV Catheter Type (from [facility]): Peripheral IV Urinary Cath still in place: No Assessment/Plan Problems: (1) Urinary tract infection, site not specified Status: Acute Comment: The urine cultures corynebacterium JK sensitive only to vancomycin. Our colleagues in the emergency department brought the patient back in for admission with IV antibiotic therapy. Due to insurance reasons even though Dr. Shi had operated on her she was referred to it in network surgeon for follow- up and has an appoint with him on April [address] [place]. For now since she is inpatient Dr. Shi's covering partner Dr. Steiner will see the patient while were giving her antibiotic therapy. Qualifiers: Urinary tract infection type: site unspecified Hematuria presence: with hematuria Qualified Code: N39.0 - Urinary tract infection with hematuria, site unspecified (2) Kidney stone Status: Acute Comment: Has a double-J stent in which may need replacement Subjective 24 Hr Interval Summary Free Text/Dictation 7-year-old female with a history of renal stones are impacted and may in fact be infected status. She had placement of a double-J stent by Dr. Shi roughly 1 month ago. Since that time she has been bothered with consistent pain. She had recent visit to the fast track where she had urine culture done that demonstrated a resistant corynebacterium JK. He is advised to return to the hospital for IV antibiotics as was sensitive only to vancomycin. She was brought into the emergency room and from there was admitted. Urology specifically Dr. Steiner was notified. Please see the ER doctor 's notes Constitutional: no complaints Respiratory: no complaints Cardiovascular: no complaints Gastrointestinal: no complaints Genitourinary: no complaints Exam/Review of Systems Vital Signs Vitals Vital Signs Date Time Temp Pulse Resp B/P Pulse Ox O2 Delivery O2 Flow Rate FiO2 05/06/17 14:20 98.0 66 18 116/64 99 Intake and Output 05/05/17 05/05/17 05/06/17 15:00 23:00 07:00 Intake Total 250 ml 950 ml Balance 250 ml 950 ml Exam Constitutional: alert, oriented Respiratory: clear to auscultation, normal air movement Cardiovascular: nl pulses, regular rate and rhythm Gastrointestinal: nl liver, spleen, non-tender, soft Results Result Diagram: 05/06/17 0434 05/06/17 0434 Results 24 hrs Laboratory Tests Test 05/05/17 17:25 05/05/17 18:50 05/05/17 19:00 05/05/17 19:02 White Blood Count 8.1 Red Blood Count 3.97 L Hemoglobin 12.1 Hematocrit 36.1 L Mean Corpuscular Volume 90.9 Mean Corpuscular Hemoglobin 30.5 Mean Corpuscular Hemoglobin Concent 33.5 Red Cell Distribution Width 12.2 Platelet Count 307 Mean Platelet Volume 10.6 H Neutrophils % 49.7 Lymphocytes % 37.7 Monocytes % 6.4 Eosinophils % 5.1 Basophils % 0.7 Nucleated Red Blood Cells % 0.0 Neutrophils # (Manual) 4.0 Lymphocytes # 3.1 H Monocytes # 0.5 Eosinophils # 0.4 Basophils # 0.1 Nucleated Red Blood Cells # 0.0 Sodium Level 142 Potassium Level 3.8 Chloride Level 108 Carbon Dioxide Level 26 Anion Gap 12 Blood Urea Nitrogen 15 Creatinine 0.73 Glucose Level 94 Calcium Level 9.1 Urine Color YELLOW Urine Clarity CLOUDY A Urine pH 5.0 Urine Specific [place] 1.026 Urine Ketones NEGATIVE Urine Nitrite NEGATIVE Urine Bilirubin NEGATIVE Urine Urobilinogen NEGATIVE Urine Leukocyte Esterase 3+ H Urine Microscopic RBC > 182 H Urine Microscopic WBC 79 H Urine Squamous Epithelial Cells MODERATE Urine Bacteria FEW A Urine Mucus FEW A Urine Hemoglobin 3+ H Urine Glucose NEGATIVE Urine Total Protein 2+ H Prothrombin Time 12.5 Prothrombin Time Ratio 1.0 INR International Normalized Ratio 0.93 Activated Partial Thromboplast Time 27.1 Free Thyroxine 1.03 Bedside Urine pH (LAB) 6.0 Bedside Urine Protein (LAB) 2+ H Bedside Urine Glucose (UA) Negative Bedside Urine Ketones (LAB) Negative Bedside Urine Blood 3+ H Bedside Urine Nitrite (LAB) Negative Bedside Urine Leukocyte Esterase (L 1+ H Test 05/06/17 04:34 05/06/17 04:35 White Blood Count 7.2 Red Blood Count 3.73 L Hemoglobin 11.1 L Hematocrit 34.1 L Mean Corpuscular Volume 91.4 Mean Corpuscular Hemoglobin 29.8 Mean Corpuscular Hemoglobin Concent 32.6 Red Cell Distribution Width 12.1 Platelet Count 273 Mean Platelet Volume 10.7 H Neutrophils % 36.0 L Lymphocytes % 52.0 H Monocytes % 5.6 Eosinophils % 5.4 Basophils % 0.7 Nucleated Red Blood Cells % 0.0 Neutrophils # (Manual) 2.6 Lymphocytes # 3.7 H Monocytes # 0.4 Eosinophils # 0.4 Basophils # 0.1 Nucleated Red Blood Cells # 0.0 Sodium Level 140 Potassium Level 3.7 Chloride Level 108 Carbon Dioxide Level 26 Anion Gap 10 Blood Urea Nitrogen 15 Creatinine 0.59 Glucose Level 100 Hemoglobin A1c 5.2 Calcium Level 8.0 L Phosphorus Level 4.0 Magnesium Level 1.6 L Triglycerides Level 155 H Cholesterol Level 129 LDL Cholesterol, Calculated 63 HDL Cholesterol 35 Cholesterol/HDL Ratio 3.6 Thyroid Stimulating Hormone (TSH) 2.470 Medications Medications Current Medications Ondansetron HCl (Zofran Inj) 4 mg Q6H PRN IV NAUSEA AND/OR VOMITING; Start 05/05 at 19:00 Acetaminophen (Tylenol Tab) 650 mg Q6H PRN PO PAIN LEVEL 1-3 OR FEVER; Start at 19:00 Acetaminophen/ Hydrocodone Bitart ([place] (5/325)) 1 tab Q6H PRN PO MODERATE PAIN LEVEL 4-6 Last administered on 05/06/17 07:54; Admin Dose 1 TAB; Start 05/05 at 19:00 Morphine Sulfate (morphine) 2 mg Q4H PRN IV SEVERE PAIN LEVEL 7-10 Last administered on 05/06/17 11:02; Admin Dose 2 MG; Start 05/05/17 at 19:00 Docusate Sodium (Colace) 100 mg Q12H PRN PO CONSTIPATION; Start 05/05/17 at 19: 00 Magnesium Hydroxide (Milk Of Mag) 30 ml DAILY PRN PO CONSTIPATION; Start at 19:00 Sodium Biphosphate/ Sodium Phosphate (Fleet Enema) 133 ml DAILY PRN [place] CONSTIPATION; Start 05/05/17 at 19:00 Heparin Sodium (Porcine) (Heparin (5000 Units/0.5 ml)) 5,000 unit Q12 SC Last administered on 05/05/17 21:23; Admin Dose 5,000 UNIT; Start 05/05/17 at 21:00 Lorazepam 0.5 mg 0.5 mg Q6H PRN IV ANXIETY; Start 05/05/17 at 19:00 Sodium Chloride (NS) 1,000 ml @ 100 mls/hr Q10H IV Last administered on 07:55; Admin Dose 100 MLS/HR; Start 05/05/17 at 18:53 Vancomycin HCl (Vanco Iv Per Pharmacy) VANCOMYCIN PER PHARMACY NOTE XX ; Start 05/05/17 at 19:00 Hydralazine HCl (Apresoline) 10 mg Q6H PRN IV ELEVATED BLOOD PRESSURE; Start at 19:00 Nitroglycerin (Nitroglycerin (Sl Tab) 0.4 Mg) 1 tab Q5M PRN SL ANGINA; Start at 19:00 Tamsulosin HCl 0.4 mg 0.4 mg BID PO Last administered on 05/06/17 08:46; Admin Dose 0.4 MG; Start 05/05/17 at 21:00 Vancomycin HCl (Vancocin) 250 ml @ 125 mls/hr Q12H IVPB Last administered on 03:12; Admin Dose 125 MLS/HR; Start 05/06/17 at 03:00 Miscellaneous Information (*Rx Drug Level Order Reminder*) VANCOMYCIN TROUGH 05/07 AT 0200 ONCE ONCE XX ; Start 05/07/17 at 02:00; Stop 05/07/17 at 02:01 Hydromorphone HCl (Dilaudid) 0.5 mg Q4H PRN IV MODERATE PAIN LEVEL 4-6 Last administered on 05/06/17 13:17; Admin Dose 0.5 MG; Start 05/06/17 at 12:00 YUAN SOSA MD May 06, 2017 15:03
[2017-05-06] MEDS ORDERED: FOSFOMYCIN 3 GM PACKET PO ONE (16:30)
[2017-05-06] MEDS: ONDANSETRON 4 MG INJ IV PRN (19:49)
[2017-05-06 20:52] VITALS: BP 166/87; RESP 19
[2017-05-06 21:23] VITALS: BP 133/73; PULSE 63
[2017-05-07] MEDS: HYDROmorphONE 1 MG/ML SYG IV PRN ×5 (01:39→19:52)
--- NOTE | 2017-05-07 03:03 | RADRPT ---
PROCEDURE: Retroperitoneal ultrasound. CLINICAL INDICATION: Flank pain, ureteral stent, hydronephrosis. TECHNIQUE: [place] scale and color doppler ultrasound images of the retroperitoneum, kidneys, urinary bladder COMPARISON: CT abdomen pelvis 05/02/2017 FINDINGS: Kidneys: Right length (cm) : 10.8 Left length (cm) : 12.0 Right cortical thickness: Normal. Left cortical thickness: Normal. Echogenicity: Normal bilaterally. Hydronephrosis: Trace left-sided hydronephrosis. Left-sided ureteral stent is present. Renal calculi: None. Focal lesions: 8 mm echogenic nonshadowing cortical focus within each kidney likely representing sma ll proteinaceous cysts. Free fluid/ascites: None. Abdominal aorta: Not visualized by the impression printer. Bladder: No focal lesions. Other findings: None. IMPRESSION: Left-sided ureteral stent with trace left-sided hydronephrosis, improved from the previous examinati on. RPTAT: AADD .Maurice Telles MD, MD Date Time Electronically viewed and signed by .Maurice Telles MD, MD on 05/07/2017 03:03 .B/
[2017-05-07] MEDS: VANCOMYCIN 1 GM in NS 250 ML IVPB SCH (03:10)
[2017-05-07 03:13] VITALS: BP 136/69; RESP 18
[2017-05-07] MEDS: morphine 2 MG INJ IV PRN ×3 (03:15→22:08)
[2017-05-07 07:57] VITALS: BP 123/74; RESP 20
[2017-05-07 08:29] LABS: BASOPHIL # 0.1 10^3/ul (0.0-0.1); EOSINOPHILS # 0.3 10^3/ul (0.0-0.5); EOSINOPHILS % 4.4 % (0.0-7.0); HEMATOCRIT 34.3 % (37.0-47.0); HEMOGLOBIN 11.6 g/dl (12.0-16.0); LYMPHOCYTES # 2.4 10^3/ul (0.8-2.9); LYMPHOCYTES % 35.1 % (15.0-51.0); MEAN CORPUSCULAR HEMOGLOBIN 30.3 pg (29.0-33.0); MEAN CORPUSCULAR HGB CONC 33.8 g/dl (32.0-37.0); MEAN CORPUSCULAR VOLUME 89.6 fl (82.0-101.0); MEAN PLATELET VOLUME 10.2 fl (7.4-10.4); MONOCYTE # 0.4 10^3/ul (0.3-0.9); MONOCYTES % 5.6 % (0.0-11.0); NEUTROPHILS % 53.6 % (39.0-77.0); PLATELET COUNT 275 10^3/UL (140-415); RED BLOOD COUNT 3.83 10^6/ul (4.20-5.40); WHITE BLOOD COUNT 6.8 10^3/ul (4.8-10.8)
[2017-05-07] MEDS: HEPARIN 5,000 UNIT/0.5 ML VIAL SC SCH ×2 (08:30→19:52)
[2017-05-07] MEDS: TAMSULOSIN (SR) 0.4 MG CAP PO SCH ×2 (08:34→19:52)
[2017-05-07] MEDS: SOD CHLORIDE 0.9% 1,000 ML IV SCH ×2 (08:41→22:08)
[2017-05-07] MEDS: ONDANSETRON 4 MG INJ IV PRN ×2 (08:41→19:55)
[2017-05-07 08:47] LABS: CREATININE 0.62 mg/dl (0.44-1.00)
--- NOTE | 2017-05-07 11:08 | CONS ---
Date/Time of Note Date/Time of Note DATE: 05/07/17 TIME: 11:01 Assessment/Plan Assessment/Plan Chief Complaint/Hosp Course known ureteral stone treated with stenting she has delayed definitive treatment due to HMO constraints but is scheduled to see Urologist May 11 my office had facilitated fu and arranged for an appt in April but that was only a PCP ER staff and hospitalist staff elected to treat the asymptomatic positive culture no sign of sepsis and her renal sono shows no obstruction she is having bladder spasms which can be treated by antimuscarinics Problems: Consultation Date/Type/Reason Admit Date/Time May 05, 2017 at 17:49 Date of Consultation: May 07, 2017 Type of Consultation: uro Reason for Consultation requested by Dr. Hussein Hx of Present Illness patient had a ureteral stent placed by Dr. Shi for an obstructing ureteral stone she is scheduled to see a urologist within her network in May 11 she was awaiting authorization by her HMO admitted for antibiotics at the discretion of the ER and hospitalist team she is having bladder spasms Constitutional: no complaints Respiratory: no complaints Cardiovascular: no complaints Gastrointestinal: no complaints Genitourinary: no complaints Past Medical History Medical History: urinary tract infection, other (Left ureteral stone, status post stent placement) Past Surgical History Past Surgical Hx: other (Left ureteral stent placement) Social History Alcohol Use: none Smoking Status: Never smoker Drug Use: none Exam/Review of Systems Vital Signs Vitals Vital Signs Date Time Temp Pulse Resp B/P Pulse Ox O2 Delivery O2 Flow Rate FiO2 05/07/17 07:57 97.8 72 20 123/74 98 Intake and Output 05/06/17 05/06/17 05/07/17 15:00 23:00 07:00 Intake Total 650 ml 1300 ml 1000 ml Balance 650 ml 1300 ml 1000 ml Exam Constitutional: alert, well developed Psych: no complaints Head: normocephalic Eyes: nl conjunctiva Respiratory: normal air movement Gastrointestinal: non-tender, soft Extremities: normal pulses Skin: nl turgor Results Result Diagram: 05/07/17 0812 05/07/17 0812 Results 24 hrs Laboratory Tests Test 05/07/17 01:48 05/07/17 08:12 Vancomycin Level Trough 8.7 L White Blood Count 6.8 Red Blood Count 3.83 L Hemoglobin 11.6 L Hematocrit 34.3 L Mean Corpuscular Volume 89.6 Mean Corpuscular Hemoglobin 30.3 Mean Corpuscular Hemoglobin Concent 33.8 Red Cell Distribution Width 12.0 Platelet Count 275 Mean Platelet Volume 10.2 Neutrophils % 53.6 Lymphocytes % 35.1 Monocytes % 5.6 Eosinophils % 4.4 Basophils % 1.0 Nucleated Red Blood Cells % 0.0 Neutrophils # (Manual) 3.7 Lymphocytes # 2.4 Monocytes # 0.4 Eosinophils # 0.3 Basophils # 0.1 Nucleated Red Blood Cells # 0.0 Sodium Level 140 Potassium Level 4.0 Chloride Level 106 Carbon Dioxide Level 29 Anion Gap 9 Blood Urea Nitrogen 6 #L Creatinine 0.62 Glucose Level 94 Calcium Level 8.0 L Medications Medications Current Medications Ondansetron HCl (Zofran Inj) 4 mg Q6H PRN IV NAUSEA AND/OR VOMITING Last administered on 05/07/17 08:41; Admin Dose 4 MG; Start 05/05/17 at 19:00 Acetaminophen (Tylenol Tab) 650 mg Q6H PRN PO PAIN LEVEL 1-3 OR FEVER; Start at 19:00 Acetaminophen/ Hydrocodone Bitart ([place] (5/325)) 1 tab Q6H PRN PO MODERATE PAIN LEVEL 4-6 Last administered on 05/06/17 19:48; Admin Dose 1 TAB; Start 05/05 at 19:00 Morphine Sulfate (morphine) 2 mg Q4H PRN IV SEVERE PAIN LEVEL 7-10 Last administered on 05/07/17 08:33; Admin Dose 2 MG; Start 05/05/17 at 19:00 Docusate Sodium (Colace) 100 mg Q12H PRN PO CONSTIPATION; Start 05/05/17 at 19: 00 Magnesium Hydroxide (Milk Of Mag) 30 ml DAILY PRN PO CONSTIPATION; Start at 19:00 Sodium Biphosphate/ Sodium Phosphate (Fleet Enema) 133 ml DAILY PRN [place] CONSTIPATION; Start 05/05/17 at 19:00 Heparin Sodium (Porcine) (Heparin (5000 Units/0.5 ml)) 5,000 unit Q12 SC Last administered on 05/05/17 21:23; Admin Dose 5,000 UNIT; Start 05/05/17 at 21:00 Lorazepam 0.5 mg 0.5 mg Q6H PRN IV ANXIETY; Start 05/05/17 at 19:00 Sodium Chloride (NS) 1,000 ml @ 100 mls/hr Q10H IV Last administered on 08:41; Admin Dose 100 MLS/HR; Start 05/05/17 at 18:53 Vancomycin HCl (Vanco Iv Per Pharmacy) VANCOMYCIN PER PHARMACY NOTE XX ; Start 05/05/17 at 19:00 Hydralazine HCl (Apresoline) 10 mg Q6H PRN IV ELEVATED BLOOD PRESSURE; Start at 19:00 Nitroglycerin (Nitroglycerin (Sl Tab) 0.4 Mg) 1 tab Q5M PRN SL ANGINA; Start at 19:00 Tamsulosin HCl (Flomax) 0.4 mg BID PO Last administered on 05/07/17 08:34; Admin Dose 0.4 MG; Start 05/05/17 at 21:00 Hydromorphone HCl 0.5 mg 0.5 mg Q4H PRN IV MODERATE PAIN LEVEL 4-6 Last administered on 05/07/17 10:35; Admin Dose 0.5 MG; Start 05/06/17 at 12:00 Vancomycin HCl/ Sodium Chloride (Vancocin/NS) 250 ml @ 83.333 mls/ hr Q12H IVPB ; Start 05/07/17 at 12:00 STAN HDZ MD May 07, 2017 11:08
[2017-05-07] MEDS: OXYBUTYNIN (XL) 5 MG TAB PO SCH (12:07)
[2017-05-07] MEDS: VANCOMYCIN 1.5 GM in SOD CHLORIDE 0.9% 250 ML IVPB SCH ×2 (12:07→23:19)
--- NOTE | 2017-05-07 13:40 | PN ---
Date/Time of Note Date/Time of Note DATE: 05/07/17 TIME: 13:36 Assessment/Plan VTE Prophylaxis VTE Prophylaxis Intervention: SCD's Lines/Catheters IV [facility] Peripheral IV Urinary Cath still in place: No Assessment/Plan Assessment/Plan 1. UTI with hematuria, follow up with culture result, on vancomycin 2. s/p left ureteral stent for ureteral stone, follow up with urology 3. Obesity Subjective 24 Hr Interval Summary Free Text/Dictation right flank pain. Less blood in urine Exam/Review of Systems Vital Signs Vitals Vital Signs Date Time Temp Pulse Resp B/P Pulse Ox O2 Delivery O2 Flow Rate FiO2 05/07/17 07:57 97.8 72 20 123/74 98 Intake and Output 05/06/17 05/06/17 05/07/17 15:00 23:00 07:00 Intake Total 650 ml 1300 ml 1000 ml Balance 650 ml 1300 ml 1000 ml Exam Constitutional: alert, obese, oriented, well developed Psych: nl mood/affect, no complaints Head: atraumatic, normocephalic Eyes: EOMI, PERRL, nl conjunctiva, nl lids ENMT: nl external ears & nose, nl lips & teeth, nl nasal mucosa & septum Neck: non-tender, supple Respiratory: clear to auscultation, normal air movement, No congested cough, No crackles/rales, No diminished breath sounds, No intercostal retraction, No labored breathing, No other, No respirations, No tactile fremitus, No wheezing Cardiovascular: nl pulses, regular rate and rhythm, No S3, No S4, No bruits, No diastolic murmur, No edema, No gallop, No irregular rhythm, No jugular venous distention (JVD), No murmurs/extra sounds, No other, No rub, No systolic murmur Gastrointestinal: nl liver, spleen, non-tender, soft, No ascites, No bowel sounds, No distended, No firm, No hepatomegaly, No mass , No other, No rebound or guarding, No splenomegaly, No surgical scars, No tender Musculoskeletal: nl extremities to inspection Extremities: normal pulses, No calf tenderness, No clubbing, No cyanosis, No edema, No other, No palpable cord, No pitting pedal edema, No tenderness Neurological: SE[employer] P[employer] II-XII intact, nl mental status, nl speech, nl strength Skin: nl turgor Results Result Diagram: 05/07/17 0812 05/07/17 0812 Results 24 hrs Laboratory Tests Test 05/07/17 01:48 05/07/17 08:12 Vancomycin Level Trough 8.7 L White Blood Count 6.8 Red Blood Count 3.83 L Hemoglobin 11.6 L Hematocrit 34.3 L Mean Corpuscular Volume 89.6 Mean Corpuscular Hemoglobin 30.3 Mean Corpuscular Hemoglobin Concent 33.8 Red Cell Distribution Width 12.0 Platelet Count 275 Mean Platelet Volume 10.2 Neutrophils % 53.6 Lymphocytes % 35.1 Monocytes % 5.6 Eosinophils % 4.4 Basophils % 1.0 Nucleated Red Blood Cells % 0.0 Neutrophils # (Manual) 3.7 Lymphocytes # 2.4 Monocytes # 0.4 Eosinophils # 0.3 Basophils # 0.1 Nucleated Red Blood Cells # 0.0 Sodium Level 140 Potassium Level 4.0 Chloride Level 106 Carbon Dioxide Level 29 Anion Gap 9 Blood Urea Nitrogen 6 #L Creatinine 0.62 Glucose Level 94 Calcium Level 8.0 L Medications Medications Current Medications Ondansetron HCl (Zofran Inj) 4 mg Q6H PRN IV NAUSEA AND/OR VOMITING Last administered on 05/07/17 08:41; Admin Dose 4 MG; Start 05/05/17 at 19:00 Acetaminophen (Tylenol Tab) 650 mg Q6H PRN PO PAIN LEVEL 1-3 OR FEVER; Start at 19:00 Acetaminophen/ Hydrocodone Bitart ([place] (5/325)) 1 tab Q6H PRN PO MODERATE PAIN LEVEL 4-6 Last administered on 05/06/17 19:48; Admin Dose 1 TAB; Start 05/05 at 19:00 Morphine Sulfate (morphine) 2 mg Q4H PRN IV SEVERE PAIN LEVEL 7-10 Last administered on 05/07/17 08:33; Admin Dose 2 MG; Start 05/05/17 at 19:00 Docusate Sodium (Colace) 100 mg Q12H PRN PO CONSTIPATION; Start 05/05/17 at 19: 00 Magnesium Hydroxide (Milk Of Mag) 30 ml DAILY PRN PO CONSTIPATION; Start at 19:00 Sodium Biphosphate/ Sodium Phosphate (Fleet Enema) 133 ml DAILY PRN IN CONSTIPATION; Start 05/05/17 at 19:00 Heparin Sodium (Porcine) (Heparin (5000 Units/0.5 ml)) 5,000 unit Q12 SC Last administered on 05/05/17 21:23; Admin Dose 5,000 UNIT; Start 05/05/17 at 21:00 Lorazepam 0.5 mg 0.5 mg Q6H PRN IV ANXIETY; Start 05/05/17 at 19:00 Sodium Chloride (NS) 1,000 ml @ 100 mls/hr Q10H IV Last administered on 08:41; Admin Dose 100 MLS/HR; Start 05/05/17 at 18:53 Vancomycin HCl (Vanco Iv Per Pharmacy) VANCOMYCIN PER PHARMACY NOTE XX ; Start 05/05/17 at 19:00 Hydralazine HCl (Apresoline) 10 mg Q6H PRN IV ELEVATED BLOOD PRESSURE; Start at 19:00 Nitroglycerin (Nitroglycerin (Sl Tab) 0.4 Mg) 1 tab Q5M PRN SL ANGINA; Start at 19:00 Tamsulosin HCl (Flomax) 0.4 mg BID PO Last administered on 05/07/17 08:34; Admin Dose 0.4 MG; Start 05/05/17 at 21:00 Hydromorphone HCl 0.5 mg 0.5 mg Q4H PRN IV MODERATE PAIN LEVEL 4-6 Last administered on 05/07/17 10:35; Admin Dose 0.5 MG; Start 05/06/17 at 12:00 Vancomycin HCl/ Sodium Chloride (Vancocin/NS) 250 ml @ 83.333 mls/ hr Q12H IVPB Last administered on 05/07/17 12:07; Admin Dose 83.333 MLS/HR; Start at 12:00 Oxybutynin Chloride (Ditropan Xl) 10 mg DAILY PO Last administered on 05/07/17 12:07; Admin Dose 10 MG; Start 05/07/17 at 12:00 MAHOGANY THORNE MD May 07, 2017 13:40
[2017-05-07 16:36] VITALS: BP 132/82; RESP 18
[2017-05-07 20:00] VITALS: BP 113/59; RESP 18
[2017-05-08 02:41] VITALS: BP 116/63; RESP 18
[2017-05-08] MEDS: HYDROmorphONE 1 MG/ML SYG IV PRN ×5 (05:51→23:32)
[2017-05-08] MEDS: SOD CHLORIDE 0.9% 1,000 ML IV SCH ×2 (05:53→13:13)
[2017-05-08 08:09] LABS: BASOPHIL # 0.1 10^3/ul (0.0-0.1); BASOPHILS % 0.7 % (0.0-2.0); EOSINOPHILS # 0.3 10^3/ul (0.0-0.5); EOSINOPHILS % 4.8 % (0.0-7.0); HEMOGLOBIN 11.6 g/dl (12.0-16.0); LYMPHOCYTES # 2.3 10^3/ul (0.8-2.9); MEAN CORPUSCULAR HEMOGLOBIN 30.5 pg (29.0-33.0); MEAN CORPUSCULAR HGB CONC 34.1 g/dl (32.0-37.0); MEAN CORPUSCULAR VOLUME 89.5 fl (82.0-101.0); MEAN PLATELET VOLUME 10.4 fl (7.4-10.4); MONOCYTE # 0.4 10^3/ul (0.3-0.9); MONOCYTES % 6.3 % (0.0-11.0); NEUTROPHILS % 53.9 % (39.0-77.0); PLATELET COUNT 293 10^3/UL (140-415); RED CELL DISTRIBUTION WIDTH 11.9 % (11.5-14.5); WHITE BLOOD COUNT 6.7 10^3/ul (4.8-10.8)
[2017-05-08 08:26] VITALS: BP 122/63; RESP 18
[2017-05-08 08:28] LABS: CALCIUM 8.5 mg/dl (8.4-10.2); CREATININE 0.59 mg/dl (0.44-1.00); POTASSIUM 3.9 mmol/L (3.5-5.1)
[2017-05-08] MEDS: HEPARIN 5,000 UNIT/0.5 ML VIAL SC SCH ×2 (09:00→20:32)
[2017-05-08] MEDS: TAMSULOSIN (SR) 0.4 MG CAP PO SCH ×2 (09:15→20:31)
[2017-05-08] MEDS: OXYBUTYNIN (XL) 5 MG TAB PO SCH (09:16)
[2017-05-08] MEDS: ONDANSETRON 4 MG INJ IV PRN ×2 (09:16→18:17)
[2017-05-08] MEDS: VANCOMYCIN 1.5 GM in SOD CHLORIDE 0.9% 250 ML IVPB SCH (13:13)
[2017-05-08 14:01] VITALS: BP 120/66; RESP 18
--- NOTE | 2017-05-08 14:43 | PN ---
Date/Time of Note Date/Time of Note DATE: 05/08/17 TIME: 14:39 Assessment/Plan VTE Prophylaxis VTE Prophylaxis Intervention: SCD's Lines/Catheters IV Catheter Type (from Nrsg): Peripheral IV Urinary Cath still in place: No Assessment/Plan Assessment/Plan 47 yo F with L sided kidney stone sp stenting last month for hydronephrosis here with L flank pain from kidney stone sp eval, added muscarinic, add scheduled Toradol cont PO fluids, cont alpha brittni likely dc abx in AM If pt continues to have pain refractory to pain meds, will talk to again to see if stone can be removed in house Subjective 24 Hr Interval Summary Free Text/Dictation Pt still having a great deal of flank pain Exam/Review of Systems Vital Signs Vitals Vital Signs Date Time Temp Pulse Resp B/P Pulse Ox O2 Delivery O2 Flow Rate FiO2 05/08/17 14:01 97.9 58 18 120/66 99 Intake and Output 05/07/17 05/07/17 05/08/17 15:00 23:00 07:00 Intake Total 700 ml 740 ml 1600 ml Output Total 1200 ml Balance 700 ml -460 ml 1600 ml Exam laying in bed no mrg lungs clear abd soft no rashes prev imaging reviewed, pt with 9mm stone in kidney Results Result Diagram: 05/08/17 0728 05/08/17 0745 Results 24 hrs Laboratory Tests Test 05/08/17 07:28 05/08/17 07:45 White Blood Count 6.7 Red Blood Count 3.80 L Hemoglobin 11.6 L Hematocrit 34.0 L Mean Corpuscular Volume 89.5 Mean Corpuscular Hemoglobin 30.5 Mean Corpuscular Hemoglobin Concent 34.1 Red Cell Distribution Width 11.9 Platelet Count 293 Mean Platelet Volume 10.4 Neutrophils % 53.9 Lymphocytes % 34.0 Monocytes % 6.3 Eosinophils % 4.8 Basophils % 0.7 Nucleated Red Blood Cells % 0.0 Neutrophils # (Manual) 3.6 Lymphocytes # 2.3 Monocytes # 0.4 Eosinophils # 0.3 Basophils # 0.1 Nucleated Red Blood Cells # 0.0 Sodium Level 140 Potassium Level 3.9 Chloride Level 107 Carbon Dioxide Level 28 Anion Gap 9 Blood Urea Nitrogen 9 Creatinine 0.59 Glucose Level 103 Calcium Level 8.5 Medications Medications Current Medications Ondansetron HCl (Zofran Inj) 4 mg Q6H PRN IV NAUSEA AND/OR VOMITING Last administered on 05/08/17 09:16; Admin Dose 4 MG; Start 05/05/17 at 19:00 Acetaminophen (Tylenol Tab) 650 mg Q6H PRN PO PAIN LEVEL 1-3 OR FEVER; Start at 19:00 Acetaminophen/ Hydrocodone Bitart ([place] (5/325)) 1 tab Q6H PRN PO MODERATE PAIN LEVEL 4-6 Last administered on 05/06/17 19:48; Admin Dose 1 TAB; Start 05/05 at 19:00 Morphine Sulfate (morphine) 2 mg Q4H PRN IV SEVERE PAIN LEVEL 7-10 Last administered on 05/07/17 22:08; Admin Dose 2 MG; Start 05/05/17 at 19:00 Docusate Sodium (Colace) 100 mg Q12H PRN PO CONSTIPATION; Start 05/05/17 at 19: 00 Magnesium Hydroxide (Milk Of Mag) 30 ml DAILY PRN PO CONSTIPATION; Start at 19:00 Sodium Biphosphate/ Sodium Phosphate (Fleet Enema) 133 ml DAILY PRN [place] CONSTIPATION; Start 05/05/17 at 19:00 Heparin Sodium (Porcine) (Heparin (5000 Units/0.5 ml)) 5,000 unit Q12 SC Last administered on 05/05/17 21:23; Admin Dose 5,000 UNIT; Start 05/05/17 at 21:00 Lorazepam 0.5 mg 0.5 mg Q6H PRN IV ANXIETY; Start 05/05/17 at 19:00 Sodium Chloride (NS) 1,000 ml @ 100 mls/hr Q10H IV Last administered on 13:13; Admin Dose 100 MLS/HR; Start 05/05/17 at 18:53 Vancomycin HCl (Vanco Iv Per Pharmacy) VANCOMYCIN PER PHARMACY NOTE XX ; Start 05/05/17 at 19:00 Hydralazine HCl (Apresoline) 10 mg Q6H PRN IV ELEVATED BLOOD PRESSURE; Start at 19:00 Nitroglycerin (Nitroglycerin (Sl Tab) 0.4 Mg) 1 tab Q5M PRN SL ANGINA; Start at 19:00 Tamsulosin HCl (Flomax) 0.4 mg BID PO Last administered on 05/08/17 09:15; Admin Dose 0.4 MG; Start 05/05/17 at 21:00 Hydromorphone HCl 0.5 mg 0.5 mg Q4H PRN IV MODERATE PAIN LEVEL 4-6 Last administered on 05/08/17 14:02; Admin Dose 0.5 MG; Start 05/06/17 at 12:00 Vancomycin HCl/ Sodium Chloride (Vancocin/NS) 250 ml @ 83.333 mls/ hr Q12H IVPB Last administered on 05/08/17 13:13; Admin Dose 83.333 MLS/HR; Start at 12:00 Oxybutynin Chloride (Ditropan Xl) 10 mg DAILY PO Last administered on 05/08/17 09:16; Admin Dose 10 MG; Start 05/07/17 at 12:00 Miscellaneous Information (*Rx Drug Level Order Reminder*) VANCOMYCIN TROUGH ON 05/08 @ 23,:00 ONCE ONCE XX ; Start 05/08/17 at 23:00; Stop 05/08/17 at 23:01 YOMI CARRENO MD May 08, 2017 14:43
[2017-05-08] MEDS ORDERED: KETOROLAC 30 MG INJ IV PRN (15:00)
[2017-05-08] MEDS: KETOROLAC 30 MG INJ IV SCH ×2 (15:30→20:32)
[2017-05-08 20:10] VITALS: BP 142/72; RESP 21
[2017-05-09] MEDS: VANCOMYCIN 1.5 GM in SOD CHLORIDE 0.9% 250 ML IVPB SCH ×3 (00:24→23:35)
[2017-05-09] MEDS: ONDANSETRON 4 MG INJ IV PRN ×4 (01:39→23:39)
[2017-05-09 02:06] VITALS: BP 96/53; RESP 18
[2017-05-09 02:20] VITALS: BP 112/59; PULSE 61; RESP 19
[2017-05-09] MEDS: KETOROLAC 30 MG INJ IV SCH ×4 (02:33→21:26)
[2017-05-09] MEDS: SOD CHLORIDE 0.9% 1,000 ML IV SCH ×4 (05:35→22:53)
[2017-05-09] MEDS: HYDROmorphONE 1 MG/ML SYG IV PRN ×4 (06:35→22:19)
[2017-05-09 07:48] VITALS: BP 98/56; RESP 16
[2017-05-09 08:33] LABS: BASOPHIL # 0.1 10^3/ul (0.0-0.1); BASOPHILS % 0.6 % (0.0-2.0); EOSINOPHILS # 0.2 10^3/ul (0.0-0.5); EOSINOPHILS % 2.2 % (0.0-7.0); HEMATOCRIT 33.1 % (37.0-47.0); HEMOGLOBIN 10.7 g/dl (12.0-16.0); LYMPHOCYTES # 1.2 10^3/ul (0.8-2.9); LYMPHOCYTES % 14.2 % (15.0-51.0); MEAN CORPUSCULAR HEMOGLOBIN 28.9 pg (29.0-33.0); MEAN CORPUSCULAR HGB CONC 32.3 g/dl (32.0-37.0); MEAN CORPUSCULAR VOLUME 89.5 fl (82.0-101.0); MEAN PLATELET VOLUME 10.4 fl (7.4-10.4); MONOCYTE # 0.4 10^3/ul (0.3-0.9); MONOCYTES % 4.7 % (0.0-11.0); NEUTROPHILS % 77.9 % (39.0-77.0); PLATELET COUNT 256 10^3/UL (140-415); RED CELL DISTRIBUTION WIDTH 12.2 % (11.5-14.5); WHITE BLOOD COUNT 8.5 10^3/ul (4.8-10.8)
[2017-05-09] MEDS: HEPARIN 5,000 UNIT/0.5 ML VIAL SC SCH ×2 (09:00→21:00)
[2017-05-09 09:01] LABS: CALCIUM 8.4 mg/dl (8.4-10.2); CREATININE 0.54 mg/dl (0.44-1.00); POTASSIUM 3.8 mmol/L (3.5-5.1)
[2017-05-09] MEDS: TAMSULOSIN (SR) 0.4 MG CAP PO SCH ×2 (09:09→21:26)
[2017-05-09] MEDS: OXYBUTYNIN (XL) 5 MG TAB PO SCH (09:09)
[2017-05-09 14:00] VITALS: BP 136/64; RESP 18
--- NOTE | 2017-05-09 14:16 | PN ---
DATE: 05/09/2017 SUBJECTIVE DATA: No acute changes overnight. The patient is alert, feels better, looks comfortable. She reports an episode of light-headedness, rigors and chills last night. However, no fevers. The patient also states she almost fainted last night. Temperature 98, pulse 66, respirations 16, blood pressure 98/60, saturation 95 percent on room air. LABORATORY AND DIAGNOSTIC DATA: WBC 8.5, platelets 256,000 neutrophils 77.9. BUN 10, creatinine 0.54. MICROBIOLOGY: Blood culture on admission was negative. Urine culture on admission show contaminant but on 05/02/2017 grew Corynebacterium group JK, susceptible only to vancomycin. ANTIMICROBIALS: Patient is on IV Vancomycin. OBJECTIVE DATA: PHYSICAL EXAMINATION: GENERAL: This is a morbidly obese, well developed, middle-aged woman who is alert, in no distress. HEENT: Head atraumatic, normocephalic. Sclerae anicteric. Buccal mucosa pink. NECK: Supple. CHEST: Rise symmetrical. Breath sounds diminished at the bases. HEART: S1, S2. ABDOMEN: Soft with mild tenderness on the left radiating to the right. Bowel sounds present. EXTREMITIES: Without cyanosis. ASSESSMENT: 1. Recurrent urinary tract infection, with evidence of trace left-sided hydronephrosis, improved from previous examination per ultrasound of the kidney. 2. History of ureteral stent placement. 3. Morbid obesity. 4. Anemia. PLAN: The patient remains stable. She is being seen by Urology, she has an appointment with him on 05/11/2017. We will keep her on IV vancomycin and repeat urine culture, as culture on this admission is consistent with contaminant. Dictated By: Ju Cooney NP /dayan/louis /Document#: [id number]
[2017-05-09] MEDS ORDERED: VANCOMYCIN 1.5 GM in SOD CHLORIDE 0.9% 250 ML IVPB SCH (18:00)
--- NOTE | 2017-05-09 18:22 | PN ---
Date/Time of Note Date/Time of Note DATE: 05/09/17 TIME: 18:20 Assessment/Plan VTE Prophylaxis VTE Prophylaxis Intervention: SCD's Lines/Catheters IV Catheter Type (from Nrsg): Peripheral IV Urinary Cath still in place: No Assessment/Plan Assessment/Plan 47 yo F with L sided kidney stone sp stenting last month for hydronephrosis here with L flank pain from kidney stone sp eval, added muscarinic, add scheduled Toradol cont PO fluids, cont alpha brittni sp abx If pt continues to have pain refractory to pain meds, will talk to again to see if stone can be removed in house Subjective 24 Hr Interval Summary Free Text/Dictation pt sleeping at time of my eval this am Exam/Review of Systems Vital Signs Vitals Vital Signs Date Time Temp Pulse Resp B/P Pulse Ox O2 Delivery O2 Flow Rate FiO2 05/09/17 14:00 98.4 60 18 136/64 97 05/09/17 02:20 Room Air Intake and Output 05/08/17 05/08/17 05/09/17 14:59 22:59 06:59 Intake Total 500 ml 1710 ml 1720 ml Output Total 1000 ml 1700 ml Balance 500 ml 710 ml 20 ml Exam nad resp nonlabored no mrg abd soft no rashes Results Result Diagram: 05/09/1719 05/09/17 0819 Results 24 hrs Laboratory Tests Test 05/08/17 23:21 05/09/17 08:19 Vancomycin Level Trough 12.6 White Blood Count 8.5 # Red Blood Count 3.70 L Hemoglobin 10.7 L Hematocrit 33.1 L Mean Corpuscular Volume 89.5 Mean Corpuscular Hemoglobin 28.9 L Mean Corpuscular Hemoglobin Concent 32.3 Red Cell Distribution Width 12.2 Platelet Count 256 Mean Platelet Volume 10.4 Neutrophils % 77.9 H Lymphocytes % 14.2 L Monocytes % 4.7 Eosinophils % 2.2 Basophils % 0.6 Nucleated Red Blood Cells % 0.0 Neutrophils # (Manual) 6.6 Lymphocytes # 1.2 Monocytes # 0.4 Eosinophils # 0.2 Basophils # 0.1 Nucleated Red Blood Cells # 0.0 Sodium Level 138 Potassium Level 3.8 Chloride Level 108 Carbon Dioxide Level 25 Anion Gap 9 Blood Urea Nitrogen 10 Creatinine 0.54 Glucose Level 103 Calcium Level 8.4 Medications Medications Current Medications Ondansetron HCl (Zofran Inj) 4 mg Q6H PRN IV NAUSEA AND/OR VOMITING Last administered on 05/09/17 16:29; Admin Dose 4 MG; Start 05/05/17 at 19:00 Acetaminophen (Tylenol Tab) 650 mg Q6H PRN PO PAIN LEVEL 1-3 OR FEVER; Start at 19:00 Acetaminophen/ Hydrocodone Bitart ([place] (5/325)) 1 tab Q6H PRN PO MODERATE PAIN LEVEL 4-6 Last administered on 05/06/17 19:48; Admin Dose 1 TAB; Start 05/05 at 19:00 Morphine Sulfate (morphine) 2 mg Q4H PRN IV SEVERE PAIN LEVEL 7-10 Last administered on 05/07/17 22:08; Admin Dose 2 MG; Start 05/05/17 at 19:00 Docusate Sodium (Colace) 100 mg Q12H PRN PO CONSTIPATION Last administered on 23:35; Admin Dose 100 MG; Start 05/05/17 at 19:00 Magnesium Hydroxide (Milk Of Mag) 30 ml DAILY PRN PO CONSTIPATION; Start at 19:00 Sodium Biphosphate/ Sodium Phosphate (Fleet Enema) 133 ml DAILY PRN [place] CONSTIPATION; Start 05/05/17 at 19:00 Heparin Sodium (Porcine) (Heparin (5000 Units/0.5 ml)) 5,000 unit Q12 SC Last administered on 05/05/17 21:23; Admin Dose 5,000 UNIT; Start 05/05/17 at 21:00 Lorazepam 0.5 mg 0.5 mg Q6H PRN IV ANXIETY; Start 05/05/17 at 19:00 Sodium Chloride (NS) 1,000 ml @ 100 mls/hr Q10H IV Last administered on 05:35; Admin Dose 100 MLS/HR; Start 05/05/17 at 18:53 Vancomycin HCl (Vanco Iv Per Pharmacy) VANCOMYCIN PER PHARMACY NOTE XX ; Start 05/05/17 at 19:00 Hydralazine HCl (Apresoline) 10 mg Q6H PRN IV ELEVATED BLOOD PRESSURE; Start at 19:00 Nitroglycerin (Nitroglycerin (Sl Tab) 0.4 Mg) 1 tab Q5M PRN SL ANGINA; Start at 19:00 Tamsulosin HCl (Flomax) 0.4 mg BID PO Last administered on 05/09/17 09:09; Admin Dose 0.4 MG; Start 05/05/17 at 21:00 Hydromorphone HCl 0.5 mg 0.5 mg Q4H PRN IV MODERATE PAIN LEVEL 4-6 Last administered on 05/09/17 17:05; Admin Dose 0.5 MG; Start 05/06/17 at 12:00 Vancomycin HCl/ Sodium Chloride (Vancocin/NS) 250 ml @ 83.333 mls/ hr Q12H IVPB Last administered on 05/09/17 12:19; Admin Dose 83.333 MLS/HR; Start at 12:00 Oxybutynin Chloride (Ditropan Xl) 10 mg DAILY PO Last administered on 05/09/17 09:09; Admin Dose 10 MG; Start 05/07/17 at 12:00 Ketorolac Tromethamine 30 mg 30 mg Q6H IV Last administered on 05/09/17 16:29; Admin Dose 30 MG; Start 05/08/17 at 15:00; Stop 05/11/17 at 14:59 Vancomycin HCl/ Sodium Chloride (Vancocin/NS) 250 ml @ 83.333 mls/ hr Q12H IVPB ; Start 05/09/17 at 18:00; Stop 05/14/17 at 16:00; Status YOMI FLOYD MD May 09, 2017 18:22
[2017-05-09 20:00] VITALS: BP 123/67; RESP 20
--- NOTE | 2017-05-09 21:52 | CONS ---
DATE OF ADMISSION: 05/05/2017 DATE OF CONSULTATION: 05/09/2017 REASON FOR CONSULTATION: The patient is a 47-year-old female, who was admitted with chief complaint of an abnormal urine culture. The patient sustained ureteral obstruction approximately a month ago and was seen by Dr. Shi, who put a stent in her . She had an obstructing stone on the left side. The patient came to the ER on May 02 and was complaining of rigors and lightheadedness and flank pain. She was diagnosed as having pyelonephritis and given Cipro to take home. Subsequently, she had no or modest response and was called by the hospital to report that she had grown Sierra 5th corynebacterium JK and returned to the ER on 05/08/2017. She was admitted to the hospital and begun treatment with IV vancomycin and a urine culture grew Sierra lactobacillus that would be certainly covered by vancomycin and is probably a contaminant in the urine culture. It should be noted that when the patient arrived, her hemoglobin was 12.1 g and is now 10.7 g. The patient has been afebrile, although she had regurgitation last night, she had no temperature elevation. PAST MEDICAL HISTORY: Morbid obesity, she has had 4 C-sections, implants, and history of anemia. ALLERGIES: SHE HAS NO KNOWN ALLERGIES. MEDICATIONS: She does not take any regular medications. PHYSICAL EXAMINATION: GENERAL: A well-developed, obese, female lying in bed comfortably, but she states she hurts in her back when she moves. VITAL SIGNS: Temperature 98.4, pulse 60, respirations 18, blood pressure 136/64, pulse oximetry 97 percent on room air. HEENT: Pupils equal and reactive to light. Mucous membranes of the mouth are moist and saliva does not string. NECK: Supple. CHEST AND BACK: Obese. Clear to auscultation. HEART: Regular without gallop, murmur, or rub. ABDOMEN: Obese and soft. No palpable organs. There is tenderness to slight palpation in the left costovertebral angle area. Bowel sounds are present. EXTREMITIES: No edema, cyanosis, or clubbing. INITIAL IMPRESSION: Urinary tract infection with Corynebacterium jeikeium, left ureteral obstruction, nephrolithiasis, dehydration, anemia, and obesity. RECOMMENDATIONS: I would encourage hydration, analgesia, and continue the tamsulosin to help her pass the stone and encourage her to drink enough fluids so that she is passing clear urine all the time, which would be greater than 2000 cc of fluid per day or more considering the hot spell we are having. I am seeing this patient for Dr. Andrea Mart. Dictated By: Guadalupe Barrett MD /dayan/amanda /Document#: [id number]
[2017-05-09] MEDS: ZOLPIDEM 5 MG TAB PO PRN (23:44)
[2017-05-10 02:00] VITALS: BP 117/59; RESP 20
[2017-05-10] MEDS: HYDROmorphONE 1 MG/ML SYG IV PRN ×3 (02:18→11:10)
[2017-05-10] MEDS: KETOROLAC 30 MG INJ IV SCH ×3 (03:25→15:16)
[2017-05-10 07:59] VITALS: BP 136/80; RESP 18
[2017-05-10] MEDS: SOD CHLORIDE 0.9% 1,000 ML IV SCH ×2 (08:38→11:54)
[2017-05-10 08:42] LABS: BASOPHIL # 0.1 10^3/ul (0.0-0.1); EOSINOPHILS # 0.4 10^3/ul (0.0-0.5); EOSINOPHILS % 6.4 % (0.0-7.0); HEMATOCRIT 31.8 % (37.0-47.0); HEMOGLOBIN 10.5 g/dl (12.0-16.0); LYMPHOCYTES # 2.2 10^3/ul (0.8-2.9); LYMPHOCYTES % 34.7 % (15.0-51.0); MEAN CORPUSCULAR HEMOGLOBIN 30.1 pg (29.0-33.0); MEAN CORPUSCULAR VOLUME 91.1 fl (82.0-101.0); MEAN PLATELET VOLUME 10.4 fl (7.4-10.4); MONOCYTE # 0.4 10^3/ul (0.3-0.9); MONOCYTES % 6.8 % (0.0-11.0); NEUTROPHILS % 50.8 % (39.0-77.0); PLATELET COUNT 244 10^3/UL (140-415); RED BLOOD COUNT 3.49 10^6/ul (4.20-5.40); RED CELL DISTRIBUTION WIDTH 12.3 % (11.5-14.5); WHITE BLOOD COUNT 6.3 10^3/ul (4.8-10.8)
[2017-05-10] MEDS: TAMSULOSIN (SR) 0.4 MG CAP PO SCH (08:47)
[2017-05-10] MEDS: OXYBUTYNIN (XL) 5 MG TAB PO SCH (08:47)
[2017-05-10] MEDS: HEPARIN 5,000 UNIT/0.5 ML VIAL SC SCH (08:49)
[2017-05-10 09:29] LABS: CREATININE 0.57 mg/dl (0.44-1.00); POTASSIUM 3.5 mmol/L (3.5-5.1)
[2017-05-10] MEDS: VANCOMYCIN 1.5 GM in SOD CHLORIDE 0.9% 250 ML IVPB SCH (11:53)
[2017-05-10] MEDS ORDERED: HYDROmorphONE 2 MG TAB PO PRN (12:30)
--- NOTE | 2017-05-10 13:12 | PN ---
Date/Time of Note Date/Time of Note DATE: 05/10/17 TIME: 13:10 Assessment/Plan VTE Prophylaxis VTE Prophylaxis Intervention: SCD's Lines/Catheters IV Catheter Type (from Nrsg): Peripheral IV Urinary Cath still in place: No Assessment/Plan Assessment/Plan 47 yo F with L sided kidney stone sp stenting last month for hydronephrosis here with L flank pain from kidney stone sp eval, added muscarinic, add scheduled Toradol cont PO fluids, cont alpha brittni sp abx--Not indicated per and ID Pt has outpatient appt scheduled for tomorrow at 1130 AM. Will try PO pain meds for the next 18 hours and if able to tolerate will discharge directly to clinic in the AM Exam/Review of Systems Vital Signs Vitals Vital Signs Date Time Temp Pulse Resp B/P Pulse Ox O2 Delivery O2 Flow Rate FiO2 05/10/17 07:59 97.7 72 18 136/80 99 05/09/17 02:20 Room Air Intake and Output 05/09/17 05/09/17 05/10/17 15:00 23:00 07:00 Intake Total 500 ml 2150 ml 1480 ml Balance 500 ml 2150 ml 1480 ml Results Result Diagram: 05/10/17 0829 05/10/17 0829 Results 24 hrs Laboratory Tests Test 05/10/17 08:29 White Blood Count 6.3 # Red Blood Count 3.49 L Hemoglobin 10.5 L Hematocrit 31.8 L Mean Corpuscular Volume 91.1 Mean Corpuscular Hemoglobin 30.1 Mean Corpuscular Hemoglobin Concent 33.0 Red Cell Distribution Width 12.3 Platelet Count 244 Mean Platelet Volume 10.4 Neutrophils % 50.8 Lymphocytes % 34.7 Monocytes % 6.8 Eosinophils % 6.4 Basophils % 1.0 Nucleated Red Blood Cells % 0.0 Neutrophils # (Manual) 3.2 Lymphocytes # 2.2 Monocytes # 0.4 Eosinophils # 0.4 Basophils # 0.1 Nucleated Red Blood Cells # 0.0 Sodium Level 141 Potassium Level 3.5 Chloride Level 112 H Carbon Dioxide Level 22 Anion Gap 11 Blood Urea Nitrogen 10 Creatinine 0.57 Glucose Level 120 Calcium Level 8.0 L Medications Medications Current Medications Ondansetron HCl (Zofran Inj) 4 mg Q6H PRN IV NAUSEA AND/OR VOMITING Last administered on 05/09/17t 23:39; Admin Dose 4 MG; Start 05/05/17 at 19:00 Acetaminophen (Tylenol Tab) 650 mg Q6H PRN PO PAIN LEVEL 1-3 OR FEVER; Start at 19:00 Acetaminophen/ Hydrocodone Bitart ([place] (5/325)) 1 tab Q6H PRN PO MODERATE PAIN LEVEL 4-6 Last administered on 05/06/17 19:48; Admin Dose 1 TAB; Start 05/05 at 19:00 Morphine Sulfate (morphine) 2 mg Q4H PRN IV SEVERE PAIN LEVEL 7-10 Last administered on 05/07/17 22:08; Admin Dose 2 MG; Start 05/05/17 at 19:00 Docusate Sodium (Colace) 100 mg Q12H PRN PO CONSTIPATION Last administered on 23:35; Admin Dose 100 MG; Start 05/05/17 at 19:00 Magnesium Hydroxide (Milk Of Mag) 30 ml DAILY PRN PO CONSTIPATION; Start at 19:00 Sodium Biphosphate/ Sodium Phosphate (Fleet Enema) 133 ml DAILY PRN [place] CONSTIPATION; Start 05/05/17 at 19:00 Heparin Sodium (Porcine) (Heparin (5000 Units/0.5 ml)) 5,000 unit Q12 SC Last administered on 05/05/17 21:23; Admin Dose 5,000 UNIT; Start 05/05/17 at 21:00 Lorazepam 0.5 mg 0.5 mg Q6H PRN IV ANXIETY; Start 05/05/17 at 19:00 Sodium Chloride (NS) 1,000 ml @ 100 mls/hr Q10H IV Last administered on 11:54; Admin Dose 100 MLS/HR; Start 05/05/17 at 18:53 Vancomycin HCl (Vanco Iv Per Pharmacy) VANCOMYCIN PER PHARMACY NOTE XX ; Start 05/05/17 at 19:00; Stop 05/14/17 at 16:00 Hydralazine HCl (Apresoline) 10 mg Q6H PRN IV ELEVATED BLOOD PRESSURE; Start at 19:00 Nitroglycerin (Nitroglycerin (Sl Tab) 0.4 Mg) 1 tab Q5M PRN SL ANGINA; Start at 19:00 Tamsulosin HCl (Flomax) 0.4 mg BID PO Last administered on 05/10/17 08:47; Admin Dose 0.4 MG; Start 05/05/17 at 21:00 Oxybutynin Chloride (Ditropan Xl) 10 mg DAILY PO Last administered on 05/10/17 08:47; Admin Dose 10 MG; Start 05/07/17 at 12:00 Ketorolac Tromethamine (Toradol) 30 mg Q6H IV Last administered on 05/10/17 08: 48; Admin Dose 30 MG; Start 05/08/17 at 15:00; Stop 05/11/17 at 14:59 Hydromorphone HCl (Dilaudid) 2 mg Q4H PRN PO PAIN; Start 05/10/17 at 12:30; Status UNV YOMI CARRENO MD May 10, 2017 13:12
[2017-05-10 15:19] VITALS: BP 141/64; RESP 20
[2017-05-10] MEDS ORDERED: HYDR2TAB36 PO (17:25)
[2017-05-10] MEDS ORDERED: OXYB5TAB22 PO (17:25)
[2017-05-10] MEDS ORDERED: IBUP800T25 PO (17:25)
--- NOTE | 2017-05-10 17:34 | PDOCDIS ---
Discharge Instructions CONDITION Patient Condition: Stable HOME CARE INSTRUCTIONS: Special Diet: regular FOLLOW UP/APPOINTMENTS Follow-up Plan Follow up with your urologist tomorrow as scheduled Drink A LOT of water Make sure you have some food in your stomach when you take the ibuprofen. YOMI CARRENO MD May 10, 2017 17:34
--- NOTE | 2017-05-10 17:38 | DS ---
Date/Time of Note Date/Time of Note DATE: 05/10/17 TIME: 17:35 Discharge Summary Admission/Discharge Info Admit Date/Time May 05, 2017 at 17:49 Discharge Date/Time Discharge Diagnosis symptomatic nephrolithiasis Patient Condition: Stable Consults urology, infectious disease Procedures urine culture 9.2 lactobacillus urine culture 9.6 no growth FILIBERTO 9.3 IMPRESSION: Left-sided ureteral stent with trace left-sided hydronephrosis, improved from the previous examination. Hx of Present Illness 47-year-old female with a history of ureteral left-sided kidney stone, status post stent placement by Dr. Shi on 04/13/17. Patient presented to our ER 3 days ago complaining of continuing left-sided flank pain, gross hematuria with blood clots and worsening pain. Patient was admitted here about 3 weeks ago for kidney stone and UTI. She was seen by urology and had a left ureteral stent placement. She was discharged with Cipro which she has been taking and then she was admitted again to [facility] for pyelonephritis and was discharged with Cipro. As mentioned above, she came to our ER 3 days ago with above-stated symptoms. A urine culture was done and she was discharged with Cipro. The urine culture now grew Corynebacterium that is only susceptible to vancomycin and as such she was cold to come to the hospital and now admitted for IV antibiotic. She reports still having left flank pain and intermittent gross hematuria. When she presented to the ER today, vitals were stable. CBC and BMP within acceptable range. Urinalysis consistent with a severe UTI. CT abdomen/pelvis that was done 3 days ago showed Interval placement of a double -J left ureteral stent with decreased moderate left hydronephrosis. Two left- sided ureteral calculi are present adjacent to the distal aspect of the ureteral stent and interval decreased left perinephric fat stranding. . Hospital Course 47 yo F with L sided kidney stone sp stenting last month for hydronephrosis here with L flank pain from kidney stone. Pt seen by which advised addition of Oxybutynin. Pain control achieved by date of discharge. Concern raised over whether or note stone was infected. Pt seen by and ID, completed several days of abx. Urine culture negative at discharge. Pt to see tomorrow morning. Home Meds Active Scripts Hydrocodone/Acetaminophen (Jul[place] 5-325 Tablet) 1 Each Tablet, 1 TAB PO Q6H Y for PAIN, #20 TAB Prov:FIDEL STEINER PA-C 05/02/17 Tamsulosin Hcl* (Flomax*) 0.4 Mg Cap.er.24h, 0.4 MG PO BID, #30 CAP Prov:FIDEL STEINER PA-C 04/11/17 Discontinued Scripts Ciprofloxacin Hcl* (Ciprofloxacin Hcl*) 500 Mg Tablet, 500 MG PO BID, #14 TAB Prov:IVY,[employer] 04/15/17 Docusate Sodium (Dok) 100 Mg Capsule, 100 MG PO BID, #60 CAP Prov:IVY,[employer] 04/15/17 Hydrocodone/Acetaminophen (Julian 5-325 Tablet) 1 Each Tablet, 1 TAB PO Q6H Y for PAIN, #20 TAB Prov:FIDEL STEINER PA-C 04/11/17 Primary Care Provider Care Physician No Primary Time spent on discharge: > 30 minutes Pending Labs Laboratory Tests Test 05/10/17 08:29 White Blood Count 6.310^3/ul (4.8-10.8) Red Blood Count 3.4910^6/ul (4.20-5.40) Hemoglobin 10.5g/dl (12.0-16.0) Hematocrit 31.8% (37.0-47.0) Mean Corpuscular Volume 91.1fl (82.0-101.0) Mean Corpuscular Hemoglobin 30.1pg (29.0-33.0) Mean Corpuscular Hemoglobin Concent 33.0g/dl (32.0-37.0) Red Cell Distribution Width 12.3% (11.5-14.5) Platelet Count 11090^3/UL (140-415) Mean Platelet Volume 10.4fl (7.4-10.4) Neutrophils % 50.8% (39.0-77.0) Lymphocytes % 34.7% (15.0-51.0) Monocytes % 6.8% (0.0-11.0) Eosinophils % 6.4% (0.0-7.0) Basophils % 1.0% (0.0-2.0) Nucleated Red Blood Cells % 0.0/100WBC (0.0-0.0) Neutrophils # (Manual) 3.210^3/ul (1.7-7.5) Lymphocytes # 2.210^3/ul (0.8-2.9) Monocytes # 0.410^3/ul (0.3-0.9) Eosinophils # 0.410^3/ul (0.0-0.5) Basophils # 0.110^3/ul (0.0-0.1) Nucleated Red Blood Cells # 0.010^3/ul (0.0-0.0) Sodium Level 141mmol/L (135-144) Potassium Level 3.5mmol/L (3.5-5.1) Chloride Level 112mmol/L (97-110) Carbon Dioxide Level 22mmol/L (21-31) Anion Gap 11 (8-16) Blood Urea Nitrogen 10mg/dl (7-20) Creatinine 0.57mg/dl (0.44-1.00) Glucose Level 120mg/dl (70-220) Calcium Level 8.0mg/dl (8.4-10.2) YOMI CARRENO MD May 10, 2017 17:38
[2017-05-10] MEDS ORDERED: TAMS-14 PO (17:42)
--- NOTE | 2017-05-10 18:40 | PN ---
DATE: 05/10/2017 SUBJECTIVE DATA: The patient is alert, feels better, looks comfortable. Denies pain. No fevers. Repeat urine culture came back negative. The patient is off antibiotics, status post vancomycin. PHYSICAL EXAMINATION: Well-developed, obese, middle-aged woman who is awake, in no distress. HEENT: Head atraumatic, normocephalic. Sclerae anicteric. Buccal mucosa pink. NECK: Supple. CHEST: Rise symmetrical. Breath sounds clear. HEART: S1, S2. ABDOMEN: Soft, bowel sounds present. EXTREMITIES: Without cyanosis. ASSESSMENT: 1. Recurrent UTI with left-sided hydronephrosis, improved from previous examination, repeat urine cultures negative. 2. History of ureteral stent placement. 3. Morbid obesity. 4. Anemia. PLAN: The patient remains stable off antibiotics. Continue present care. Follow recommendations of Urology. Continue hydration. Dictated By: Ju Cooney NP /dayan/sandrine /Document#: [id number]
== END 2017-05-10 19:05 | disposition home or self-care (01) | DRG 694 ==
LOC: E/R 16:32 → PP2 17:49
PROVIDERS: ADMIT Hospitalist; ATTEND Hospitalist
DX: N20.0 Calculus of kidney (principal); N13.30 Unspecified hydronephrosis; N39.0 Urinary tract infection, site not specified; E86.0 Dehydration; D64.9 Anemia, unspecified; Z68.33 Body mass index [BMI] 33.0-33.9, adult; E66.01 Morbid (severe) obesity due to excess calories
CPT/HCPCS: 76775; 80048; 80061; 80202; 81001; 81003; 83036; 83735; 84100; 84439; 84443; 85025; 85610; 85730; 87040; 87086; 96365; 96366; 96372; 96375; 96376; 97116; 97161; 97530; J1170; J1644; J1885; J2270; J2405; J3370; J7030; J7050

== ENCOUNTER 2017-08-05 14:50 | Emergency (ER) | payer OTHER ==
[~2017-08-05] VITALS: Ht 162.6 cm; Wt 93.2 kg
[~2017-08-05 14:50] MED LIST changes: -CIPR500T4 PO; -DOCU-216 PO; -HYDR-906 PO; +HYDR2TAB36 PO; +IBUP800T25 PO; +OXYB5TAB22 PO
[2017-08-05 14:51] VITALS: Ht 162.6 cm; Wt 93.2 kg
[2017-08-05] MEDS ORDERED: SOD CHLORIDE 0.9% 500 ML IV STA (15:32)
[2017-08-05] MEDS ORDERED: KETOROLAC 30 MG INJ IV STA (15:32)
--- NOTE | 2017-08-05 15:36 | ERD ---
ER Documentation Chief Complaint Chief Complaint right lower back pain - hx of kidney stones HPI 47-year-old female with recent history of complicated left nephrolithiasis status post 2 ureteral stents, last one removed 1 month ago. Today, she presents to the emergency department complaining of acute onset of right lower quadrant pain radiated to right flank associated with increased frequency. The pain is dull, deep, 7/10 . The symptoms are very similar to the previous episode of urolithiasis. Denies fevers, chills, nausea, vomiting, no dysuria, no gross hematuria . ROS SYSTEMIC symptoms: no fever, chills, no night sweats, no weight loss EYE symptoms: No blurred vision, no eye discharge OTOLARYNGEAL symptoms: No hearing loss. No ear pain, no sore throat CARDIOVASCULAR symptoms: No chest pain or discomfort, no palpitations. PULMONARY symptoms: No dyspnea, no cough, no wheezing. GASTROINTESTINAL symptoms: Right lower abdominal pain radiating to right flank , no nausea, no vomiting, no diarrhea MUSCULOSKELETAL symptoms: No arthralgias, no muscle aches. NEUROLOGY symptoms: No confusion, no syncope, no numbness or tingling. SKIN: No rashes Medications Home Meds Active Scripts Hydrocodone/Acetaminophen (Cabins 5-325 Tablet) 1 Each Tablet, 1 TAB PO Q6H Y for PAIN, #20 TAB Prov:LI VU MD 08/05/17 Metronidazole* (Flagyl*) 500 Mg Tablet, 500 MG PO TID for 7 Days, TAB Prov:LI VU MD 08/05/17 Ciprofloxacin Hcl* (Ciprofloxacin Hcl*) 250 Mg Tablet, 250 MG PO BID, #14 TAB Prov:LI VU MD 08/05/17 Tamsulosin Hcl* (Flomax*) 0.4 Mg Cap.er.24h, 0.4 MG PO BID for 30 Days, #30 CAP Prov:YOMI CARRENO MD 05/10/17 Ibuprofen* (Ibuprofen*) 800 Mg Tab, 800 MG PO TID for 7 Days, #21 TAB Prov:YOMI CARRENO MD 05/10/17 Oxybutynin Chloride* (Ditropan* XL) 5 Mg Tabsr, 10 MG PO DAILY for 30 Days, #30 TAB Prov:YOMI CARRENO MD 05/10/17 Hydromorphone Hcl* (Dilaudid*) 2 Mg Tablet, 2 MG PO Q4H Y for PAIN LEVEL 7-10 for 5 Days, #10 TAB Prov:YOMI CARRENO MD 05/10/17 Allergies Allergies: Coded Allergies: No Known Allergy (Unverified , 05/05/17) PMhx/Soc History of Surgery: Yes ( x4, ) Anesthesia Reaction: No Hx Neurological Disorder: No Hx Respiratory Disorders: No Hx Cardiac Disorders: No Hx Psychiatric Problems: No Hx Miscellaneous Medical Probl: Yes (see H&P) Hx Alcohol Use: No Hx Substance Use: No Hx Tobacco Use: No Smoking Status: Never smoker Physical Exam Vitals Vital Signs Date Time Temp Pulse Resp B/P Pulse Ox O2 Delivery O2 Flow Rate FiO2 08/05/17 14:51 97.8 78 16 187/95 97 Physical Exam Patient is in mild distress due to pain, vital signs stable. Alert and fully oriented. EYES: PERRLA, EOMI, Sclera and conjunctiva appear normal. EARS: Canals clear, tympanic membranes WNL THROAT: Normal oropharynx. NECK: Supple, No lymphadenopathy. Full ROM without pain or tenderness. HEART: RRR, no rubs, murmurs, clicks or gallops. LUNGS: Clear to auscultation. ABDOMEN: Soft, right lower quadrant tender, + CVA tenderness, no masses or hepatosplenomegaly, no peritoneal signs. EXTREMITIES: No edema bilaterally. BACK: Full ROM, no deformity, normal back exam NEURO: Cranial nerves grossly intact, no motor or sensory deficit Result Diagram: 08/05/17 1548 08/05/17 1548 Results 24 hrs Laboratory Tests Test 08/05/17 15:48 08/05/17 16:06 White Blood Count 11.910^3/ul Red Blood Count 4.9410^6/ul Hemoglobin 14.4g/dl Hematocrit 44.4% Mean Corpuscular Volume 89.9fl Mean Corpuscular Hemoglobin 29.1pg Mean Corpuscular Hemoglobin Concent 32.4g/dl Red Cell Distribution Width 13.5% Platelet Count 15797^3/UL Mean Platelet Volume 10.2fl Neutrophils % 69.1% Lymphocytes % 23.2% Monocytes % 4.7% Eosinophils % 2.2% Basophils % 0.5% Nucleated Red Blood Cells % 0.0/100WBC Neutrophils # 8.210^3/ul Lymphocytes # 2.810^3/ul Monocytes # 0.610^3/ul Eosinophils # 0.310^3/ul Basophils # 0.110^3/ul Nucleated Red Blood Cells # 0.010^3/ul Sodium Level 141mmol/L Potassium Level 3.6mmol/L Chloride Level 101mmol/L Carbon Dioxide Level 28mmol/L Anion Gap 16 Blood Urea Nitrogen 12mg/dl Creatinine 0.64mg/dl Glucose Level 103mg/dl Calcium Level 8.9mg/dl Urine Color YELLOW Urine Clarity SLIGHTLY CLOUDY Urine pH 5.0 Urine Specific [place] 1.019 Urine Ketones NEGATIVEmg/dL Urine Nitrite NEGATIVEmg/dL Urine Bilirubin NEGATIVEmg/dL Urine Urobilinogen NEGATIVEmg/dL Urine Leukocyte Esterase NEGATIVELeu/ul Urine Microscopic RBC 2/HPF Urine Microscopic WBC 5/HPF Urine Squamous Epithelial Cells FEW/HPF Urine Hemoglobin 2+mg/dL Urine Glucose NEGATIVEmg/dL Urine Total Protein NEGATIVEmg/dl Current Medications Medications (Trade) Dose Ordered Sig/Ana Route PRN Reason Start Time Stop Time Status Last Admin Dose Admin Sodium Chloride (NS) 500 ml @ 500 mls/hr Q1H STAT IV 08/05/17 15:32 08/05/17 16:31 DC 08/05/17 16:15 Ketorolac Tromethamine (Toradol) 30 mg ONCE STAT IV 08/05/17 15:32 08/05/17 15:36 DC 08/05/17 16:15 Morphine Sulfate (morphine) 2 mg ONCE STAT IV 08/05/17 17:09 08/05/17 17:11 DC Ondansetron HCl (Zofran Inj) 2 mg ONCE STAT IV 08/05/17 17:09 08/05/17 17:11 DC 04/19CT Abd/pelvis 1. Interval placement of a double-J left ureteral stent with decreased moderate left hydronephrosis. Two left-sided ureteral calculi are present adjacent to the distal aspect of the ureteral stent, as described above and pictured below. Interval decreased left perinephric fat stranding. 2. Small fat-containing umbilical hernia. 3. Diverticulosis without evidence of diverticulitis. Procedures/MDM 47y/o female patient history of nephrolithiasis, presents to the ED c/o right flank pain for 2 days. Vital signs stable, Physical exam right lower quadrant tenderness and positive CVA tenderness. No peritoneal signs. Differential diagnosis include but not limited to: UTI, colitis, gastroenteritis, kidney stones, irritable bowel syndrome, inflammatory bowel syndrome, malabsorption syndrome, cholelithiasis, food intolerance, medication side effect, pancreatitis , diverticulitis, bowel obstruction. Pertinent Data: Labs: CBC: Mild elevated WBC, CMP: normal kidney, normal electrolytes. Radiology: CT abdomen: Physical examination and clinical presentation consistent most likely with diverticulitis. During the ED course the patient remained stable, no new complaints. The patient received treatment with IV fluids,Toradol, morphine and Zofran presenting overall improvement of the symptoms. Results and clinical impression discussed with patient who agrees with management. The patient is stable to be treated outpatient and will be discharged home with a Rx for ciprofloxacin, Flagyl and Cabins, some side effects of prescribed medications (headache, rash, nausea, vomiting, diarrhea, drowsiness, habituation, bleeding, hypertension, interactions with other medications) were reviewed. The patient was instructed to follow up with the primary care provider in the next 48h. If symptoms persist, worsen or new symptoms develop, then patient should return to the ED immediately. Instructions explained and given directly by me to the patient in [place] with acknowledgment and demonstrated understanding. Disclaimer: Inadvertent spelling and grammatical errors are likely due to EHR/ dictation software use and do not reflect on the overall quality of patient care. Also, please note that the electronic time recorded on this note does not necessarily reflect the actual time of the patient encounter. Departure Diagnosis: Primary Impression: Diverticulitis Condition: Stable Additional Instructions: Call your primary care doctor TOMORROW for an appointment during the next 1-2 days. See the doctor sooner or return here if your condition worsens before your appointment time. Thank you very much for allowing us to participate in your care. Your health and safety is our top priority at [facility]. Have prescriptions filled and follow precisely the directions on the label. Follow-up with primary care provider during the next 4 days and bring all the information and medications prescribed. If illness has not improved in 2 days, then make an appointment with primary care provider. If the provider is unavailable, return to the Emergency Department immediately. LI VU MD Aug 05, 2017 15:36
[2017-08-05 15:59] LABS: BASOPHIL # 0.1 10^3/ul (0.0-0.1); BASOPHILS % 0.5 % (0.0-2.0); EOSINOPHILS # 0.3 10^3/ul (0.0-0.5); EOSINOPHILS % 2.2 % (0.0-7.0); HEMATOCRIT 44.4 % (37.0-47.0); HEMOGLOBIN 14.4 g/dl (12.0-16.0); LYMPHOCYTES # 2.8 10^3/ul (0.8-2.9); LYMPHOCYTES % 23.2 % (15.0-51.0); MEAN CORPUSCULAR HEMOGLOBIN 29.1 pg (29.0-33.0); MEAN CORPUSCULAR HGB CONC 32.4 g/dl (32.0-37.0); MEAN CORPUSCULAR VOLUME 89.9 fl (82.0-101.0); MEAN PLATELET VOLUME 10.2 fl (7.4-10.4); MONOCYTE # 0.6 10^3/ul (0.3-0.9); MONOCYTES % 4.7 % (0.0-11.0); NEUTROPHIL # 8.2 10^3/ul (1.6-7.5); NEUTROPHILS % 69.1 % (39.0-77.0); PLATELET COUNT 282 10^3/UL (140-415); RED BLOOD COUNT 4.94 10^6/ul (4.20-5.40); RED CELL DISTRIBUTION WIDTH 13.5 % (11.5-14.5); WHITE BLOOD COUNT 11.9 10^3/ul (4.8-10.8)
[2017-08-05 16:20] LABS: CALCIUM 8.9 mg/dl (8.4-10.2); CREATININE 0.64 mg/dl (0.44-1.00); POTASSIUM 3.6 mmol/L (3.5-5.1)
[2017-08-05 16:21] LABS: ADD UMIC YES; UR ASCORBIC ACID NEGATIVE (NEGATIVE); UR BILIRUBIN (Dip) NEGATIVE (NEGATIVE); UR BLOOD (Dip) 2+ mg/dL (NEGATIVE); UR CLARITY SLIGHTLY CLOUDY (CLEAR); UR COLOR YELLOW (YELLOW); UR GLUCOSE (Dip) NEGATIVE (NEGATIVE); UR KETONES (Dip) NEGATIVE (NEGATIVE); UR LEUKOCYTE ESTERASE (Dip) NEGATIVE Leu/ul (NEGATIVE); UR NITRITE (Dip) NEGATIVE (NEGATIVE); UR RBC 2 /HPF (0-5); UR SPECIFIC GRAVITY (Dip) 1.019 (1.003-1.030); UR SQUAMOUS EPITHELIAL CELL FEW /HPF (FEW); UR TOTAL PROTEIN (Dip) NEGATIVE (NEGATIVE); UR UROBILINOGEN (Dip) NEGATIVE (NEGATIVE)
--- NOTE | 2017-08-05 17:00 | RADRPT ---
PROCEDURE: CT abdomen and pelvis without contrast. CLINICAL INDICATION: Abdominal pain and prior history of kidney stones TECHNIQUE: CT scan of the abdomen and pelvis without contrast was performed on a [employer] CT scanner utilizing axial imaging from the lung bases through the pubis symphysis. The patient was sc anned without intravenous contrast. Sagittal and coronal reformatted images were made. The CTDIvol is 22.42 mGy and the DLP is 1258.43 mGycm. DICOM images are available. One of the following 3 dose reduction techniques were used during this CT examination: 1) Automated exposure control 2) Adjustment of the mA +/- kV according to patient size or 3) Use of iterative reconstruction technique COMPARISON: CT abdomen and pelvis 05/02/2017 FINDINGS: The lung bases are clear. The heart size is normal. No pericardial or pleural effusion is present. The visualized liver demonstrates mild diffuse fatty infiltration without focal lesions identified o n this limited noncontrast CT. The visualized spleen, pancreas, gallbladder, and bilateral adrenal g lands are normal. No evidence for intrahepatic or extrahepatic biliary ductal dilatation is present. The visualized kidneys are normal bilaterally. No evidence for ureteral stents are noted. No evidenc e for hydroureteronephrosis or nephroureterolithiasis is present. The urinary bladder is mildly distended. No evidence for calculi are present. The visualized bowel demonstrates diverticulosis with early acute descending colonic diverticulitis and associated mild bowel wall thickening and adjacent anamaria colonic inflammation. Differential incl udes acute diverticulitis however left maribell colonic colitis due to inflammatory infectious etiologie s are other considerations. Recommend follow-up until resolution. No evidence for appendicitis is pr esent. No evidence for pneumoperitoneum or ascites is present. The aorta demonstrates mild vascular calcifications without aneurysmal dilatation. Again noted is a small 1.9 cm in transverse dimension fatty umbilical hernia. The visualized bladder is incompletely distended. The uterus and bilateral adnexa are normal. No reyna dence for pelvic ascites pathologic lymphadenopathy or pneumoperitoneum is present. The imaged osseous structures demonstrates mild degenerative changes the bilateral sacroiliac joints and the imaged spine. IMPRESSION: 1. Acute left descending colonic sigmoid diverticulitis. Other differential possibilities would inc lude left maribell colitis from inflammatory or infectious etiologies. Recommend follow-up until resolut ion. 2. No evidence for pneumoperitoneum or ascites 3. Diffuse fatty infiltration of the liver. 4. Small 1.9 cm fatty umbilical hernia 5. Early mild atherosclerotic vascular disease A call report was made to Sharyn Schmitz at 08/05/2017 4:59:43 PM following the completion o f the examination by the undersigned. RPTAT: HDC .Madelin Appiah MD, Date Time Electronically viewed and signed by .Madelin Appiah MD, on 08/05/2017 16:59 .C/
[2017-08-05] MEDS ORDERED: morphine 2 MG INJ IV STA (17:09)
[2017-08-05] MEDS ORDERED: ONDANSETRON 4 MG INJ IV STA (17:09)
[2017-08-05] MEDS ORDERED: CIPR-193 PO (17:13)
[2017-08-05] MEDS ORDERED: METR500T PO (17:13)
[2017-08-05] MEDS ORDERED: HYDR-906 PO (17:13)
== END 2017-08-05 17:35 | disposition home or self-care (01) ==
LOC: FTE 14:50
DX: K57.32 Diverticulitis of large intestine without perforation or abscess without bleeding (principal)
CPT/HCPCS: 74176; 80048; 81001; 85025; 96374; 96375; J1885; J2270; J2405; J7040; Z7502

== ENCOUNTER 2018-10-30 18:37 | Inpatient (IN) | payer OTHER ==
[~2018-10-30] VITALS: Ht 162.6 cm; Wt 101.5 kg
[~2018-10-30 18:37] MED LIST changes: +CIPR-193 PO; +HYDR-4011 PO; +IBUP-1545 PO; -IBUP800T25 PO; +METR500T PO
--- NOTE | 2018-10-30 20:12 | ERD ---
ER Documentation Chief Complaint Chief Complaint BILATERAL FLANK PAIN WITH DYSURIA & HX OF KIDNEY STONES HPI 48-year-old female with a history of ureterolithiasis and urinary tract infections presents to the ED complaining of acute onset yesterday of severe, sharp, left flank pain that radiates to the left lower quadrant. Mild dysuria with intermittent hematuria but no polyuria. No relieving or exacerbating factors. No abdominal pain, chest pain or palpitations. No fevers or chills. ROS All systems reviewed and are negative except as per history of present illness. Medications Home Meds Active Scripts Ciprofloxacin Hcl* (Ciprofloxacin Hcl*) 500 Mg Tablet, 500 MG PO BID for 10 Days, #20 TAB Prov:ASHLI HEBERT S. 11/03/18 Tramadol HCl (Tramadol HCl) 50 Mg Tablet, 50 MG PO Q6H PRN for MODERATE PAIN LEVEL 4-6, #30 TAB Prov:ASHLI HEBERT S. 11/03/18 Discontinued Scripts Hydrocodone/Acetaminophen ([place] 5-325 Tablet) 1 Each Tablet, 1 TAB PO Q6H PRN for PAIN, #20 TAB Prov:LI VU MD 08/05/17 Ibuprofen* (Ibuprofen*) 800 Mg Tab, 800 MG PO TID for 7 Days, #21 TAB Prov:YOMI CARRENO MD 05/10/17 Hydromorphone Hcl* (Dilaudid*) 2 Mg Tablet, 2 MG PO Q4H PRN for PAIN LEVEL 7-10 for 5 Days, #10 TAB Prov:YOMI CARRENO MD 05/10/17 Metronidazole* (Flagyl*) 500 Mg Tablet, 500 MG PO TID for 7 Days, TAB Prov:LI VU MD 08/05/17 Ciprofloxacin Hcl* (Ciprofloxacin Hcl*) 250 Mg Tablet, 250 MG PO BID, #14 TAB Prov:LI VU MD 08/05/17 Tamsulosin Hcl* (Flomax*) 0.4 Mg Cap.er.24h, 0.4 MG PO BID for 30 Days, #30 CAP Prov:YOMI CARRENO MD 05/10/17 Oxybutynin Chloride* (Ditropan* XL) 5 Mg Tabsr, 10 MG PO DAILY for 30 Days, #30 TAB Prov:YOMI CARRENO MD 05/10/17 Allergies Allergies: Coded Allergies: No Known Allergy (Unverified , 10/30/18) PMhx/Soc Reviewed in chart. As per HPI. History of Surgery: Yes ( x4, ) Anesthesia Reaction: No Hx Neurological Disorder: No Hx Respiratory Disorders: No Hx Cardiac Disorders: No Hx Psychiatric Problems: No Hx Miscellaneous Medical Probl: Yes (see H&P) Hx Alcohol Use: No Hx Substance Use: No Hx Tobacco Use: No FmHx No family history relevant to presenting complaint Physical Exam Vitals Vital Signs Date Temp Pulse Resp B/P (MAP) Pulse Ox O2 O2 Flow FiO2 Time Delivery Rate 10/31/18 98.5 95 11 121/66 100 Room Air 00:00 (84) 10/30/18 93 19 117/63 100 Room Air 22:30 (81) 10/30/18 98.7 110 20 167/95 98 19:18 (119) Physical Exam Const: Severe distress due to pain Head: Atraumatic Eyes: Normal Conjunctiva ENT: Normal External Ears, Nose and Mouth. Neck: Full range of motion. No meningismus. Resp: Clear to auscultation bilaterally Cardio: Regular rate and rhythm, no murmurs Abd: Soft, non tender, non distended. Normal bowel sounds Skin: No petechiae or rashes Back: Left CVA tenderness Ext: No cyanosis, or edema Neur: Awake and alert Psych: Normal Mood and Affect Result Diagram: 11/03/1844711/03/18447 Results 24 hrs Laboratory Tests Test 10/30/18 20:30 10/30/18 20:32 10/30/18 21:02 10/30/18 23:39 Urine Color YELLOW Urine Clarity CLOUDY Urine pH 5.0 Urine Specific 1.017 [place] Urine Ketones NEGATIVE mg/dL Urine Nitrite POSITIVE mg/dL Urine Bilirubin NEGATIVE mg/dL Urine NEGATIVE mg/dL Urobilinogen Urine Leukocyte 3+ Ana/ul Esterase Urine Microscopic 69 /HPF RBC Urine Microscopic > 182 /HPF WBC Urine Squamous FEW /HPF Epithelial Cells Urine FEW /HPF Transitional Epithelial Cells Urine Bacteria MODERATE /HPF Urine Mucus FEW /HPF Urine Hemoglobin 3+ mg/dL Urine Glucose NEGATIVE mg/dL Urine Total 3+ mg/dl Protein POC Beta HCG, NEGATIVE Qualitative White Blood Count 17.7 10^3/ul Red Blood Count 4.58 10^6/ul Hemoglobin 13.9 g/dl Hematocrit 41.9 % Mean Corpuscular 91.5 fl Volume Mean Corpuscular 30.3 pg Hemoglobin Mean Corpuscular 33.2 g/dl Hemoglobin Concen t Red Cell 12.5 % Distribution Width Platelet Count 237 10^3/UL Mean Platelet 10.6 fl Volume Immature 0.700 % Granulocytes % Neutrophils % 83.8 % Lymphocytes % 8.7 % Monocytes % 6.4 % Eosinophils % 0.1 % Basophils % 0.3 % Nucleated Red 0.0 /100WBC Blood Cells % Immature 0.130 10^3/ul Granulocytes # Neutrophils # 14.8 10^3/ul Lymphocytes # 1.5 10^3/ul Monocytes # 1.1 10^3/ul Eosinophils # 0.0 10^3/ul Basophils # 0.1 10^3/ul Nucleated Red 0.0 10^3/ul Blood Cells # Sodium Level 135 mmol/L Potassium Level 3.3 mmol/L Chloride Level 105 mmol/L Carbon Dioxide 20 mmol/L Level Anion Gap 10 Blood Urea 7 mg/dl Nitrogen Creatinine 0.50 mg/dl Est Glomerular > 60 mL/min Filtrat Rate mL/min Glucose Level 113 mg/dl Calcium Level 8.8 mg/dl Total Bilirubin 0.7 mg/dl Direct Bilirubin 0.00 mg/dl Indirect 0.7 mg/dl Bilirubin Aspartate Amino 44 IU/L Transf (AST/SGOT) Alanine 75 IU/L Aminotransferase (ALT/SGPT) Alkaline 87 IU/L Phosphatase Total Protein 6.6 g/dl Albumin 3.7 g/dl Globulin 2.90 g/dl Albumin/Globulin 1.27 Ratio POC Venous 1.6 mmol/L Lactate Current Medications Medications Dose Sig/Ana Start Time Status Last (Trade) Ordered Route PRN Stop Time Admin Dose Reason Admin Sodium 500 ml @ Q1H STAT 10/30/18 DC 10/30/18 Chloride 500 mls/hr IV 20:36 20:48 10/30/18 21:35 Morphine 4 mg ONCE STAT 10/30/18 DC 10/30/18 Sulfate IV 20:36 20:49 (morphine) 10/30/18 20:45 Ondansetron 4 mg ONCE STAT 10/30/18 DC 10/30/18 HCl (Zofran IV 20:36 20:48 Inj) 10/30/18 20:45 Ketorolac 15 mg ONCE STAT 10/30/18 DC 10/30/18 Tromethamine IV 20:36 20:48 (Toradol) 10/30/18 20:45 Morphine 4 mg STK-MED 10/30/18 DC Sulfate ONCE .ROUTE 20:45 (morphine) 10/30/18 20:46 Ondansetron 4 mg STK-MED 10/30/18 DC HCl (Zofran ONCE .ROUTE 20:45 Inj) 10/30/18 20:46 Ceftriaxone 50 ml @ ONCE ONCE 10/30/18 DC 10/30/18 Sodium 100 mls/hr IVPB 23:30 23:54 10/30/18 23:59 0.5 mg ONCE STAT 10/30/18 DC 10/30/18 Hydromorphone IV 23:29 23:55 HCl 10/30/18 23:30 (Dilaudid) Tamsulosin 0.4 mg ONCE ONCE 10/30/18 DC 10/31/18 HCl PO 23:30 00:23 (Flomax) 10/30/18 23:31 Sodium 1,140 ml BOLUS OVER 2 10/30/18 DC 10/30/18 Chloride HOURS STAT 23:30 23:55 (NS) IV* 10/30/18 23:33 Procedures/MDM DOCUMENTS REVIEWED: ED nurse, prior records LAB INTERPRETATION: CBC: Leukocytosis without anemia or thrombocytopenia. Chemistry significant for mild hypokalemia but no renal insufficiency or hyperglycemia. LFT's are normal. U/A significant for pyuria with Positive nitrite, Leukocyte esterase and moderate bacteria consistent with UTI. IMAGING: PROCEDURE: CT abdomen pelvis without contrast CLINICAL INDICATION: Left-sided flank pain TECHNIQUE: Noncontrast multiplanar images are reviewed COMPARISON: August 05, 2017 FINDINGS: The lung bases are clear. Diffuse fatty changes of the liver are present. The gallbladder lumen is mildly distended. There is no wall thickening or pericholecystic fluid. The pancreas and spleen are unremarkable. There is moderate left hydronephrosis with hydroureter. Along the course of the ureter there is a 2 mm x 2.7 mm calculus in the level of the pelvic inlet. The left kidney also retains nonobstructing stones in the upper pole. There is moderate perinephric stranding. The urinary bladder is clear. The right kidney is unremarkable. The segments of small and large bowel are nondistended with no inflammatory change. A few scattered colonic diverticular changes are seen. There is an umbilical hernia with minimal fat retention. The skeleton is negative. There is no aneurysm. - IMPRESSION: .. 1. Left mid distal ureter stool retention producing moderate left hydr onephrosis with perinephric stranding. 2. Nonobstructing stone retention in the left upper pole 3. Colonic diverticulosis changes. 4. Fatty liver RPTAT: HPPP Physician Alaina Date Time Electronically viewed and signed by Physician Alaina on 10/30/2018 22:11 RP/ MEDICAL DECISION MAKIN-year-old female with a history of ureterolithiasis and urinary tract infections presents to the ED complaining of acute onset yesterday of severe left flank pain. CT reveals obstructive uropathy with hydronephrosis and perinephric stranding as well as diverticulosis without diverticulitis. Criteria for systemic inflammatory response syndrome include leukocytosis and tachycardia. Sepsis secondary to urinary tract infection. Initial lactate is 1.6 and repeat is pending. IV fluids and antibiotics are administered after cultures. No criteria for severe sepsis or septic shock. Admit to med/surg for IV antibiotics, urology consultation, further evaluation and management. CARE TRANSFERRED: Time: 23:50. Dr Gomez Counseled patient regarding diagnostic workup, diagnosis and need for admission Departure Diagnosis: Primary Impression: Acute left flank pain Additional Impressions: Obstructive uropathy Ureterolithiasis Hydronephrosis Hydronephrosis type: with ureteral calculous obstruction Qualified Codes: N13.2 - Hydronephrosis with renal and ureteral calculous obstruction Urinary tract infection Urinary tract infection type: site unspecified Hematuria presence: with hematuria Qualified Codes: N39.0 - Urinary tract infection, site not spec ified; R31.9 - Hematuria, unspecified SIRS (systemic inflammatory response syndrome) Sepsis Sepsis type: sepsis due to unspecified organism Qualified Codes: A41.9 - Sepsis, unspecified organism Condition: Serious DO LEMUS MD Oct 30, 2018 20:12
[2018-10-30] MEDS ORDERED: ONDANSETRON 4 MG INJ IV STA (20:36)
[2018-10-30] MEDS ORDERED: SOD CHLORIDE 0.9% 500 ML IV STA (20:36)
[2018-10-30] MEDS ORDERED: KETOROLAC 15 MG INJ IV STA (20:36)
[2018-10-30] MEDS ORDERED: morphine 4 MG/ML VIAL IV STA (20:36)
[2018-10-30] MEDS ORDERED: morphine 4 MG/ML VIAL ONE (20:45)
[2018-10-30] MEDS ORDERED: ONDANSETRON 4 MG INJ ONE (20:45)
[2018-10-30] MEDS ORDERED: HYDROmorphONE 0.5 MG/0.5 ML SYG IV STA (23:29)
[2018-10-30] MEDS ORDERED: CEFTRIAXONE 1 GM/50 ML (PMX) 50 ML IVPB ONE (23:30)
[2018-10-30] MEDS ORDERED: TAMSULOSIN (SR) 0.4 MG CAP PO ONE (23:30)
[2018-10-30] MEDS ORDERED: SODIUM CHLORIDE 0.9% 1L BAG IV* STA (23:30)
[2018-10-31] MEDS ORDERED: ACETAMINOPHEN 325 MG TAB PO PRN (00:30)
[2018-10-31 00:50] VITALS: BP 134/74; PULSE 94; RESP 18
[2018-10-31] MEDS ORDERED: MAGNESIUM HYDROXIDE 30ML CUP PO ONE (02:30)
[2018-10-31] MEDS ORDERED: NACL 0.9% 3 ML SYG IV SCH (02:30)
[2018-10-31] MEDS ORDERED: BISACODYL (EC) 5 MG TAB PO ONE (02:30)
[2018-10-31] MEDS ORDERED: SENNA TAB PO PRN (02:30)
[2018-10-31] MEDS: ONDANSETRON 4 MG INJ IV PRN ×3 (03:05→22:03)
[2018-10-31] MEDS: SOD CHLORIDE 0.9% 1,000 ML IV SCH ×3 (03:05→14:48)
[2018-10-31] MEDS: HYDROCODONE/APAP (5/325) TAB PO PRN ×4 (03:13→22:03)
--- NOTE | 2018-10-31 03:46 | HP ---
Date/Time of Note Date/Time of Note DATE: 10/31/18 TIME: 03:37 Assessment/Plan VTE Prophylaxis Pharmacological prophylaxis: heparin Lines/Catheters IV [facility]ter Type (from [facility]): [place] [facility] Urinary Cath still in place: No Assessment/Plan Assessment/Plan 48-year-old female with a history of left-sided ureterolithiasis status post stent placement with eventual removal here with bilateral flank, suprapubic and lower back pain, secondary to left distal ureteral lithiasis with hydronephrosis and underlying pyelonephritis 1. Left mid distal ureterolithiasis with left hydronephrosis with perinephric stranding: -IV fluids, IV antibiotic -Strain urine -Flomax -Follow-up culture results -Urology consult 2. Pyelonephritis: See #1 3. Sepsis: As evidenced by leukocytosis and tachycardia: See #1 and #2 4. Mild hypokalemia: Replete as needed Result Diagram: 10/30/18210110/30/182101 Results 24hrs Laboratory Tests Test 10/30/18 20:30 10/30/18 20:32 10/30/18 21:02 10/30/18 23:39 Urine Color YELLOW Urine Clarity CLOUDY A Urine pH 5.0 Urine Specific 1.017 [place] Urine Ketones NEGATIVE Urine Nitrite POSITIVE A Urine Bilirubin NEGATIVE Urine Urobilinogen NEGATIVE Urine Leukocyte 3+ H Esterase Urine Microscopic 69 H RBC Urine Microscopic > 182 H WBC Urine Squamous FEW Epithelial Cells Urine Transitional FEW A Epithelial Cells Urine Bacteria MODERATE Urine Mucus FEW A Urine Hemoglobin 3+ H Urine Glucose NEGATIVE Urine Total Protein 3+ H POC Beta HCG, NEGATIVE Qualitative White Blood Count 17.7 #H Red Blood Count 4.58 Hemoglobin 13.9 Hematocrit 41.9 Mean Corpuscular 91.5 Volume Mean Corpuscular 30.3 Hemoglobin Mean Corpuscular 33.2 Hemoglobin Concent Red Cell 12.5 Distribution Width Platelet Count 237 Mean Platelet Volume 10.6 H Immature 0.700 H Granulocytes % Neutrophils % 83.8 H Lymphocytes % 8.7 L Monocytes % 6.4 Eosinophils % 0.1 Basophils % 0.3 Nucleated Red Blood 0.0 Cells % Immature 0.130 H Granulocytes # Neutrophils # 14.8 H Lymphocytes # 1.5 Monocytes # 1.1 H Eosinophils # 0.0 Basophils # 0.1 Nucleated Red Blood 0.0 Cells # Sodium Level 135 Potassium Level 3.3 L Chloride Level 105 Carbon Dioxide Level 20 L Anion Gap 10 Blood Urea Nitrogen 7 Creatinine 0.50 Est Glomerular > 60 Filtrat Rate mL/min Glucose Level 113 Calcium Level 8.8 Total Bilirubin 0.7 Direct Bilirubin 0.00 Indirect Bilirubin 0.7 Aspartate Amino 44 Transf (AST/SGOT) Alanine 75 H Aminotransferase (AL T/SGPT) Alkaline Phosphatase 87 Total Protein 6.6 Albumin 3.7 Globulin 2.90 Albumin/Globulin 1.27 Ratio POC Venous Lactate 1.6 HPI/ROS Admit Date/Time Admit Date/Time Oct 31, 2018 at 00:12 Hx of Present Illness This is a 48-year-old female with a history of left-sided ureterolithiasis status post stent with eventual removal, history of UTI, depression who presents to the ER complaining of bilateral flank, suprapubic and lower back pain. Symptom has been progressively getting worse for the past several days. She also reported burning sensation on urination. On further questioning, she reported constipation. Last bowel movement was a week ago. She presents the ER, UA was consistent with UTI. CT abdomen/pelvis shows Left mid distal ureter stool retention producing moderate left hydronephrosis with perinephric stranding, nonobstructing stone retention in the left upper pole, colonic diverticulosis changes and fatty liver. Patient was initially tachycardic with a heart rate of 110, WBC almost 18,000. She has remained afebrile. PMH/Family/Social Past Medical History Medical History: other (See HPI) Medications Current Medications Ondansetron HCl (Zofran Inj) 4 mg BRIDGE ORDER PRN IV NAUSEA/VOMITING Last administered on 10/31/18at 03:05; Admin Dose 4 MG; Start 10/31/18 at 00:30; Stop 11/01/18 at 00:29 Acetaminophen (Tylenol Tab) 650 mg ER BRIDGE PRN PO .MILD PAIN 1-3 OR TEMP; Start 10/31/18 at 00:30; Stop 11/01/18 at 00:29 Sodium Chloride 1,000 ml @ 100 mls/hr Q10H IV Last administered on 10/31/18at 03:05; Admin Dose 100 MLS/HR; Start 10/31/18 at 02:22 IV Flush (NS 3 ml) 3 ml PER PROTOCOL IV ; Start 10/31/18 at 02:30 Ondansetron HCl (Zofran Inj) 4 mg Q6H PRN IV NAUSEA/VOMITING; Start 10/31/18 at 02:30 Acetaminophen (Tylenol Tab) 650 mg Q6H PRN PO .PAIN 1-3 OR TEMP; Start 10/31/18 at 02:30 Acetaminophen/ Hydrocodone Bitart ([place] (5/325)) 1 tab Q6H PRN PO .MOD PAIN 4- 6; Start 10/31/18 at 02:30 Acetaminophen/ Hydrocodone Bitart ([place] (5/325)) 2 tab Q6H PRN PO .SEVERE PAIN 7-10 Last administered on 10/31/18at 03:13; Admin Dose 2 TAB; Start 10/31/18 at 02:30 Heparin Sodium (Porcine) (Heparin (5000 Units/1ml)) 5,000 unit Q12 SC ; Start 10/31/18 at 09:00 Senna (Senokot) 2 tab BID PRN PO CONSTIPATION; Start 10/31/18 at 02:30 Piperacillin Sod/ Tazobactam Sod 100 ml @ 200 mls/hr Q6 IVPB ; Start 10/31/18 at 06:00 Coded Allergies: No Known Allergy (Unverified , 10/30/18) Past Surgical History Past Surgical Hx: other (See HPI) Family History Significant Family History: no pertinent family hx Social History Alcohol Use: none Smoking Status: Former smoker Drug Use: none Exam/Review of Systems Vital Signs Vitals Vital Signs Date Temp Pulse Resp B/P (MAP) Pulse Ox O2 O2 Flow FiO2 Time Delivery Rate 10/31/18 98.5 95 11 121/66 100 Room Air 00:00 (84) Intake and Output 10/30/18 10/30/18 10/31/18 1515:00 23:00 07:00 IntakeIntake Total 500 ml 1190 ml BalanceBalance 500 ml 1190 ml Exam Constitutional: alert, oriented, distress Head: normocephalic, atraumatic Eyes: EOMI, PERRL Respiratory: clear to auscultation, normal air movement Cardiovascular: other (Tachycardic with regular rhythm) Gastrointestinal: soft, tender Extremities: normal pulses REMINGTON ZAVALA MD Oct 31, 2018 03:46
[2018-10-31 04:17] VITALS: Ht 162.6 cm; Wt 101.5 kg
[2018-10-31] MEDS ORDERED: TAMSULOSIN (SR) 0.4 MG CAP PO ONE (04:30)
[2018-10-31] MEDS ORDERED: AL HYDROX/MG HYDROX/SIMETH 30 ML CUP PO PRN (04:30)
[2018-10-31] MEDS: PIPER-TAZO 3.375 GM IV (PMX) 100 ML IVPB SCH ×3 (06:11→17:52)
[2018-10-31] MEDS: FAMOTIDINE 20 MG TAB PO SCH ×3 (06:11→21:51)
[2018-10-31 07:41] VITALS: BP 108/57; PULSE 81; RESP 18
[2018-10-31] MEDS: PHENAZOPYRIDINE 200 MG TAB PO SCH ×3 (08:54→21:42)
[2018-10-31] MEDS: HEPARIN 5,000 UNIT/1 ML VIAL SC SCH ×2 (08:57→21:52)
--- NOTE | 2018-10-31 13:37 | CONS ---
Assessment/Plan Assessment/Plan Hospital Course (Demo Recall) 48-year-old female presented to the emergency room with bilateral flank pain, not feeling good, nausea and urinary frequency and urgency. She is known to have a history of kidney stones and had a JJ stent inserted in April 2017 and removed in September 2017. Upon admission she underwent a CT scan of the abdomen and pelvis and that showed: The lung bases are clear. Diffuse fatty changes of the liver are present. The gallbladder lumen is mildly distended. There is no wall thickening or pericholecystic fluid. The pancreas and spleen are unremarkable. There is moderate left hydronephrosis with hydroureter. Along the course of the ureter there is a 2 mm x 2.7 mm calculus in the level of the pelvic inlet. The left kidney also retains nonobstructing stones in the upper pole. There is moderate perinephric stranding. The urinary bladder is clear. The right kidney is unremarkable. The segments of small and large bowel are nondistended with no inflammatory change. A few scattered colonic diverticular changes are seen. There is an umbilical hernia with minimal fat retention. The skeleton is negative. There is no aneurysm. Therefore a urological consultation was requested. Patient does have symptoms of urinary tract infection. The stone that she has in the left ureter is small and is not obstructing itself. She should be able to pass it on her own. Also there is a small stone in the kidney which also is asymptomatic. I did do straight cath on her and send urine for culture and sensitivity. She has already been on antibiotics so the culture may not grow anything. We will also strain her urine so if she passes a stone we know about it. Consultation Date/Type/Reason Admit Date/Time Oct 31, 2018 at 00:12 Date of Consultation: Oct 31, 2018 Type of Consult Urology Reason for Consultation Distal left ureteral stone and pyelonephritis Requesting Provider: REMINGTON ZAVALA MD Date/Time of Note DATE: 10/31/18 TIME: 13:27 Hx of Present Illness 48-year-old female presented to the emergency room with bilateral flank pain, not feeling good, nausea and urinary frequency and urgency. She is known to have a history of kidney stones and had a JJ stent inserted in April 2017 and removed in September 2017. Upon admission she underwent a CT scan of the abdomen and pelvis and that showed: The lung bases are clear. Diffuse fatty changes of the liver are present. The gallbladder lumen is mildly distended. There is no wall thickening or pericholecystic fluid. The pancreas and spleen are unremarkable. There is moderate left hydronephrosis with hydroureter. Along the course of the ureter there is a 2 mm x 2.7 mm calculus in the level of the pelvic inlet. The left kidney also retains nonobstructing stones in the upper pole. There is moderate perinephric stranding. The urinary bladder is clear. The right kidney is unremarkable. The segments of small and large bowel are nondistended with no inflammatory change. A few scattered colonic diverticular changes are seen. There is an umbil ical hernia with minimal fat retention. The skeleton is negative. There is no aneurysm. Therefore a urological consultation was requested. Constitutional: no complaints Eyes: no complaints ENT: no complaints Respiratory: no complaints; No wheezing Cardiovascular: no complaints Gastrointestinal: nausea Genitourinary: dysuria, flank pain (Bilateral), other (Urinary incontinence) Musculoskeletal: no complaints Skin: no complaints Neurologic: no complaints Endocrine: no complaints Lymphatic: no complaints Psychological: no complaints Past Medical History Medical History: no pertinent history Home Meds Active Scripts Hydrocodone/Acetaminophen ([place] 5-325 Tablet) 1 Each Tablet, 1 TAB PO Q6H PRN for PAIN, #20 TAB Prov:LI VU MD 08/05/17 Ibuprofen* (Ibuprofen*) 800 Mg Tab, 800 MG PO TID for 7 Days, #21 TAB Prov:YOMI CARRENO MD 05/10/17 Hydromorphone Hcl* (Dilaudid*) 2 Mg Tablet, 2 MG PO Q4H PRN for PAIN LEVEL 7-10 for 5 Days, #10 TAB Prov:YOMI CARRENO MD 05/10/17 Discontinued Scripts Metronidazole* (Flagyl*) 500 Mg Tablet, 500 MG PO TID for 7 Days, TAB Prov:LI VU MD 08/05/17 Ciprofloxacin Hcl* (Ciprofloxacin Hcl*) 250 Mg Tablet, 250 MG PO BID, #14 TAB Prov:LI VU MD 08/05/17 Tamsulosin Hcl* (Flomax*) 0.4 Mg Cap.er.24h, 0.4 MG PO BID for 30 Days, #30 CAP Prov:YOMI CARRENO MD 05/10/17 Oxybutynin Chloride* (Ditropan* XL) 5 Mg Tabsr, 10 MG PO DAILY for 30 Days, #30 TAB Prov:YOMI CARRENO MD 05/10/17 Medications Current Medications Ondansetron HCl (Zofran Inj) 4 mg BRIDGE ORDER PRN IV NAUSEA/VOMITING Last administered on 10/31/18at 03:05; Admin Dose 4 MG; Start 10/31/18 at 00:30; Stop 11/01/18 at 00:29 Acetaminophen (Tylenol Tab) 650 mg ER BRIDGE PRN PO .MILD PAIN 1-3 OR TEMP; Start 10/31/18 at 00:30; Stop 11/01/18 at 00:29 Sodium Chloride 1,000 ml @ 100 mls/hr Q10H IV Last administered on 10/31/18at 03:05; Admin Dose 100 MLS/HR; Start 10/31/18 at 02:22 IV Flush (NS 3 ml) 3 ml PER PROTOCOL IV ; Start 10/31/18 at 02:30 Ondansetron HCl (Zofran Inj) 4 mg Q6H PRN IV NAUSEA/VOMITING; Start 10/31/18 at 02:30 Acetaminophen (Tylenol Tab) 650 mg Q6H PRN PO .PAIN 1-3 OR TEMP; Start 10/31/18 at 02:30 Acetaminophen/ Hydrocodone Bitart ([place] (5/325)) 1 tab Q6H PRN PO .MOD PAIN 4- 6; Start 10/31/18 at 02:30 Acetaminophen/ Hydrocodone Bitart ([place] (5/325)) 2 tab Q6H PRN PO .SEVERE PAIN 7-10 Last administered on 10/31/18at 08:54; Admin Dose 2 TAB; Start 10/31/18 at 02:30 Heparin Sodium (Porcine) (Heparin (5000 Units/1ml)) 5,000 unit Q12 SC Last administered on 10/31/18at 08:57; Admin Dose 5,000 UNIT; Start 10/31/18 at 09:00 Senna (Senokot) 2 tab BID PRN PO CONSTIPATION; Start 10/31/18 at 02:30 Piperacillin Sod/ Tazobactam Sod 100 ml @ 200 mls/hr Q6 IVPB Last administered on 10/31/18at 11:27; Admin Dose 200 MLS/HR; Start 10/31/18 at 06:00 Famotidine (Pepcid) 20 mg BID PO Last administered on 10/31/18at 06:11; Admin Dose 20 MG; Start 10/31/18 at 04:30 Al Hydrox/Mg Hydrox/Simethicone (Mag-Al Plus) 30 ml Q6H PRN PO GASTROINTESTINAL UPSET; Start 10/31/18 at 04:30 Phenazopyridine HCl (Pyridium) 200 mg TID PO Last administered on 10/31/18at 13:12; Admin Dose 200 MG; Start 10/31/18 at 09:00 Allergies: Coded Allergies: No Known Allergy (Unverified , 10/30/18) Past Surgical History Past Surgical Hx: other ( x4, insertion of left ureteral JJ stent, removal of the JJ stent 6 months later in September 2017) Social History Alcohol Use: none Smoking Status: Former smoker Drug Use: none Other Social History She is a 7 para 4, 3 abortions and 4 C-sections Exam/Review of Systems Exam Vitals Vital Signs Date Temp Pulse Resp B/P (MAP) Pulse Ox O2 O2 Flow FiO2 Time Delivery Rate 10/31/18 98.7 81 18 108/57 94 07:41 (74) 10/31/18 Room Air 00:00 Intake and Output 10/30/18 10/30/18 10/31/18 1515:00 23:00 07:00 IntakeIntake Total 500 ml 1590 ml BalanceBalance 500 ml 1590 ml Constitutional: alert, oriented Psych: no complaints Head: normocephalic Eyes: nl conjunctiva ENMT: nl external ears & nose Neck: supple, non-tender Cardiovascular: No jugular venous distention (JVD) Gastrointestinal: soft, non-tender Genitourinary - Female: CVA tenderness (Left flank tenderness), other (Pelvic exam: No mass and no discharge) Musculoskeletal: nl extremities to inspection Extremities: No calf tenderness Neurological: nl mental status Skin: nl turgor Results Result Diagram: 10/31/18 0435 10/31/18 0435 Results 24hrs Laboratory Tests Test 10/30/18 20:30 10/30/18 20:32 10/30/18 21:02 10/30/18 23:39 Urine Color YELLOW Urine Clarity CLOUDY A Urine pH 5.0 Urine Specific 1.017 [place] Urine Ketones NEGATIVE Urine Nitrite POSITIVE A Urine Bilirubin NEGATIVE Urine Urobilinogen NEGATIVE Urine Leukocyte 3+ H Esterase Urine Microscopic 69 H RBC Urine Microscopic > 182 H WBC Urine Squamous FEW Epithelial Cells Urine Transitional FEW A Epithelial Cells Urine Bacteria MODERATE Urine Mucus FEW A Urine Hemoglobin 3+ H Urine Glucose NEGATIVE Urine Total Protein 3+ H POC Beta HCG, NEGATIVE Qualitative White Blood Count 17.7 #H Red Blood Count 4.58 Hemoglobin 13.9 Hematocrit 41.9 Mean Corpuscular 91.5 Volume Mean Corpuscular 30.3 Hemoglobin Mean Corpuscular 33.2 Hemoglobin Concent Red Cell 12.5 Distribution Width Platelet Count 237 Mean Platelet Volume 10.6 H Immature 0.700 H Granulocytes % Neutrophils % 83.8 H Lymphocytes % 8.7 L Monocytes % 6.4 Eosinophils % 0.1 Basophils % 0.3 Nucleated Red Blood 0.0 Cells % Immature 0.130 H Granulocytes # Neutrophils # 14.8 H Lymphocytes # 1.5 Monocytes # 1.1 H Eosinophils # 0.0 Basophils # 0.1 Nucleated Red Blood 0.0 Cells # Sodium Level 135 Potassium Level 3.3 L Chloride Level 105 Carbon Dioxide Level 20 L Anion Gap 10 Blood Urea Nitrogen 7 Creatinine 0.50 Est Glomerular > 60 Filtrat Rate mL/min Glucose Level 113 Calcium Level 8.8 Total Bilirubin 0.7 Direct Bilirubin 0.00 Indirect Bilirubin 0.7 Aspartate Amino 44 Transf (AST/SGOT) Alanine 75 H Aminotransferase (AL T/SGPT) Alkaline Phosphatase 87 Total Protein 6.6 Albumin 3.7 Globulin 2.90 Albumin/Globulin 1.27 Ratio POC Venous Lactate 1.6 Test 10/31/18 04:35 White Blood Count 16.0 H Red Blood Count 4.46 Hemoglobin 13.4 Hematocrit 41.3 Mean Corpuscular 92.6 Volume Mean Corpuscular 30.0 Hemoglobin Mean Corpuscular 32.4 Hemoglobin Concent Red Cell 12.6 Distribution Width Platelet Count 189 # Mean Platelet Volume 11.1 H Immature 0.900 H Granulocytes % Neutrophils % 85.5 H Lymphocytes % 7.2 L Monocytes % 5.9 Eosinophils % 0.1 Basophils % 0.4 Nucleated Red Blood 0.0 Cells % Immature 0.140 H Granulocytes # Neutrophils # 13.7 H Lymphocytes # 1.2 Monocytes # 0.9 Eosinophils # 0.0 Basophils # 0.1 Nucleated Red Blood 0.0 Cells # Sodium Level 137 Potassium Level 3.2 L Chloride Level 108 Carbon Dioxide Level 21 Anion Gap 8 Blood Urea Nitrogen 5 L Creatinine 0.49 Est Glomerular > 60 Filtrat Rate mL/min Glucose Level 124 Lactic Acid Level 1.0 Calcium Level 8.6 Total Bilirubin 0.8 Direct Bilirubin 0.00 Indirect Bilirubin 0.8 Aspartate Amino 30 Transf (AST/SGOT) Alanine 67 Aminotransferase (AL T/SGPT) Alkaline Phosphatase 88 Total Protein 5.7 L Albumin 3.3 Globulin 2.40 Albumin/Globulin 1.[address] scan of the abdomen and pelvis: The lung bases are clear. Diffuse fatty changes of the liver are present. The gallbladder lumen is mildly distended. There is no wall thickening or pericholecystic fluid. The pancreas and spleen are unremarkable. There is moderate left hydronephrosis with hydroureter. Along the course of the ureter there is a 2 mm x 2.7 mm calculus in the level of the pelvic inlet. The left kidney also retains nonobstructing stones in the upper pole. There is moderate perinephric stranding. The urinary bladder is clear. The right kidney is unremarkable. The segments of small and large bowel are nondistended with no inflammatory change. A few scattered colonic diverticular changes are seen. There is an u mbilical hernia with minimal fat retention. The skeleton is negative. There is no aneurysm. Medications Medication Current Medications Ondansetron HCl (Zofran Inj) 4 mg BRIDGE ORDER PRN IV NAUSEA/VOMITING Last administered on 10/31/18at 03:05; Admin Dose 4 MG; Start 10/31/18 at 00:30; Stop 11/01/18 at 00:29 Acetaminophen (Tylenol Tab) 650 mg ER BRIDGE PRN PO .MILD PAIN 1-3 OR TEMP; Start 10/31/18 at 00:30; Stop 11/01/18 at 00:29 Sodium Chloride 1,000 ml @ 100 mls/hr Q10H IV Last administered on 10/31/18at 03:05; Admin Dose 100 MLS/HR; Start 10/31/18 at 02:22 IV Flush (NS 3 ml) 3 ml PER PROTOCOL IV ; Start 10/31/18 at 02:30 Ondansetron HCl (Zofran Inj) 4 mg Q6H PRN IV NAUSEA/VOMITING; Start 10/31/18 at 02:30 Acetaminophen (Tylenol Tab) 650 mg Q6H PRN PO .PAIN 1-3 OR TEMP; Start 10/31/18 at 02:30 Acetaminophen/ Hydrocodone Bitart ([place] (5/325)) 1 tab Q6H PRN PO .MOD PAIN 4- 6; Start 10/31/18 at 02:30 Acetaminophen/ Hydrocodone Bitart ([place] (5/325)) 2 tab Q6H PRN PO .SEVERE PAIN 7-10 Last administered on 10/31/18at 08:54; Admin Dose 2 TAB; Start 10/31/18 at 02:30 Heparin Sodium (Porcine) (Heparin (5000 Units/1ml)) 5,000 unit Q12 SC Last administered on 10/31/18at 08:57; Admin Dose 5,000 UNIT; Start 10/31/18 at 09:00 Senna (Senokot) 2 tab BID PRN PO CONSTIPATION; Start 10/31/18 at 02:30 Piperacillin Sod/ Tazobactam Sod 100 ml @ 200 mls/hr Q6 IVPB Last administered on 10/31/18at 11:27; Admin Dose 200 MLS/HR; Start 10/31/18 at 06:00 Famotidine (Pepcid) 20 mg BID PO Last administered on 10/31/18at 06:11; Admin Dose 20 MG; Start 10/31/18 at 04:30 Al Hydrox/Mg Hydrox/Simethicone (Mag-Al Plus) 30 ml Q6H PRN PO GASTROINTESTINAL UPSET; Start 10/31/18 at 04:30 Phenazopyridine HCl (Pyridium) 200 mg TID PO Last administered on 10/31/18at 13:12; Admin Dose 200 MG; Start 10/31/18 at 09:00 ADELINA LOPEZ MD Oct 31, 2018 13:37
[2018-10-31] MEDS ORDERED: POTASSIUM CHLORIDE (SR) 20 MEQ TAB PO STA (15:05)
--- NOTE | 2018-10-31 15:06 | PN ---
Date/Time of Note Date/Time of Note DATE: 10/31/18 TIME: 14:56 Assessment/Plan VTE Prophylaxis Risk score (from Ns)>0 risk: 2 SCD applied (from [facility] [place]): No SCD contraindicated: other Pharmacological prophylaxis: heparin Lines/Catheters IV Catheter Type (from [facility]): Peripheral IV Urinary Cath still in place: No Assessment/Plan Hospital Course S: Patient having less pain symptoms, seen by urology team earlier today. O: VS - see below PE: Gen: alert, oriented Head: normocephalic Eyes: nl conjunctiva ENMT: nl external ears & nose Neck: supple Cardiovascular: No jugular venous distention (JVD) Gastrointestinal: soft, non-tender, + CVA tenderness (Left flank tenderness) Extremities: No lower extremity edema bilaterally Neurological: No focal deficits Assessment/Plan: 48-year-old female with a history of left-sided ureterolithiasis status post stent placement with eventual removal here with bilateral flank, suprapubic and lower back pain, secondary to left distal ureteral lithiasis with hydronephrosis and underlying pyelonephritis. 1. Left mid distal ureterolithiasis with left hydronephrosis with perinephric stranding: Appreciate urology recommendations -For now continue IV fluids, IV antibiotic -Strain urine -Continue Flomax per urology recommendations -Follow-up culture results -Follow-up further recommendations from urology consult 2. Pyelonephritis: See #1 3. Sepsis: Improving now with treatment - as evidenced by leukocytosis and tachycardia: See #1 and #2 4. Mild hypokalemia: Will replete again today Result Diagram: 10/31/18 0435 10/31/18 0435 Results 24hrs Laboratory Tests Test 10/30/18 20:30 10/30/18 20:32 10/30/18 21:02 10/30/18 23:39 Urine Color YELLOW Urine Clarity CLOUDY A Urine pH 5.0 Urine Specific 1.017 [place] Urine Ketones NEGATIVE Urine Nitrite POSITIVE A Urine Bilirubin NEGATIVE Urine Urobilinogen NEGATIVE Urine Leukocyte 3+ H Esterase Urine Microscopic 69 H RBC Urine Microscopic > 182 H WBC Urine Squamous FEW Epithelial Cells Urine Transitional FEW A Epithelial Cells Urine Bacteria MODERATE Urine Mucus FEW A Urine Hemoglobin 3+ H Urine Glucose NEGATIVE Urine Total Protein 3+ H POC Beta HCG, NEGATIVE Qualitative White Blood Count 17.7 #H Red Blood Count 4.58 Hemoglobin 13.9 Hematocrit 41.9 Mean Corpuscular 91.5 Volume Mean Corpuscular 30.3 Hemoglobin Mean Corpuscular 33.2 Hemoglobin Concent Red Cell 12.5 Distribution Width Platelet Count 237 Mean Platelet Volume 10.6 H Immature 0.700 H Granulocytes % Neutrophils % 83.8 H Lymphocytes % 8.7 L Monocytes % 6.4 Eosinophils % 0.1 Basophils % 0.3 Nucleated Red Blood 0.0 Cells % Immature 0.130 H Granulocytes # Neutrophils # 14.8 H Lymphocytes # 1.5 Monocytes # 1.1 H Eosinophils # 0.0 Basophils # 0.1 Nucleated Red Blood 0.0 Cells # Sodium Level 135 Potassium Level 3.3 L Chloride Level 105 Carbon Dioxide Level 20 L Anion Gap 10 Blood Urea Nitrogen 7 Creatinine 0.50 Est Glomerular > 60 Filtrat Rate mL/min Glucose Level 113 Calcium Level 8.8 Total Bilirubin 0.7 Direct Bilirubin 0.00 Indirect Bilirubin 0.7 Aspartate Amino 44 Transf (AST/SGOT) Alanine 75 H Aminotransferase (AL T/SGPT) Alkaline Phosphatase 87 Total Protein 6.6 Albumin 3.7 Globulin 2.90 Albumin/Globulin 1.27 Ratio POC Venous Lactate 1.6 Test 10/31/18 04:35 White Blood Count 16.0 H Red Blood Count 4.46 Hemoglobin 13.4 Hematocrit 41.3 Mean Corpuscular 92.6 Volume Mean Corpuscular 30.0 Hemoglobin Mean Corpuscular 32.4 Hemoglobin Concent Red Cell 12.6 Distribution Width Platelet Count 189 # Mean Platelet Volume 11.1 H Immature 0.900 H Granulocytes % Neutrophils % 85.5 H Lymphocytes % 7.2 L Monocytes % 5.9 Eosinophils % 0.1 Basophils % 0.4 Nucleated Red Blood 0.0 Cells % Immature 0.140 H Granulocytes # Neutrophils # 13.7 H Lymphocytes # 1.2 Monocytes # 0.9 Eosinophils # 0.0 Basophils # 0.1 Nucleated Red Blood 0.0 Cells # Sodium Level 137 Potassium Level 3.2 L Chloride Level 108 Carbon Dioxide Level 21 Anion Gap 8 Blood Urea Nitrogen 5 L Creatinine 0.49 Est Glomerular > 60 Filtrat Rate mL/min Glucose Level 124 Lactic Acid Level 1.0 Calcium Level 8.6 Total Bilirubin 0.8 Direct Bilirubin 0.00 Indirect Bilirubin 0.8 Aspartate Amino 30 Transf (AST/SGOT) Alanine 67 Aminotransferase (AL T/SGPT) Alkaline Phosphatase 88 Total Protein 5.7 L Albumin 3.3 Globulin 2.40 Albumin/Globulin 1.37 Ratio Exam/Review of Systems Exam Vitals Vital Signs Date Temp Pulse Resp B/P (MAP) Pulse Ox O2 O2 Flow FiO2 Time Delivery Rate 10/31/18 98.7 81 18 108/57 94 07:41 (74) 10/31/18 Room Air 00:00 Intake and Output 10/30/18 10/30/18 10/31/18 1515:00 23:00 07:00 IntakeIntake Total 500 ml 1590 ml BalanceBalance 500 ml 1590 ml Results Results 24hrs Laboratory Tests Test 10/30/18 20:30 10/30/18 20:32 10/30/18 21:02 10/30/18 23:39 Urine Color YELLOW Urine Clarity CLOUDY A Urine pH 5.0 Urine Specific 1.017 [place] Urine Ketones NEGATIVE Urine Nitrite POSITIVE A Urine Bilirubin NEGATIVE Urine Urobilinogen NEGATIVE Urine Leukocyte 3+ H Esterase Urine Microscopic 69 H RBC Urine Microscopic > 182 H WBC Urine Squamous FEW Epithelial Cells Urine Transitional FEW A Epithelial Cells Urine Bacteria MODERATE Urine Mucus FEW A Urine Hemoglobin 3+ H Urine Glucose NEGATIVE Urine Total Protein 3+ H POC Beta HCG, NEGATIVE Qualitative White Blood Count 17.7 #H Red Blood Count 4.58 Hemoglobin 13.9 Hematocrit 41.9 Mean Corpuscular 91.5 Volume Mean Corpuscular 30.3 Hemoglobin Mean Corpuscular 33.2 Hemoglobin Concent Red Cell 12.5 Distribution Width Platelet Count 237 Mean Platelet Volume 10.6 H Immature 0.700 H Granulocytes % Neutrophils % 83.8 H Lymphocytes % 8.7 L Monocytes % 6.4 Eosinophils % 0.1 Basophils % 0.3 Nucleated Red Blood 0.0 Cells % Immature 0.130 H Granulocytes # Neutrophils # 14.8 H Lymphocytes # 1.5 Monocytes # 1.1 H Eosinophils # 0.0 Basophils # 0.1 Nucleated Red Blood 0.0 Cells # Sodium Level 135 Potassium Level 3.3 L Chloride Level 105 Carbon Dioxide Level 20 L Anion Gap 10 Blood Urea Nitrogen 7 Creatinine 0.50 Est Glomerular > 60 Filtrat Rate mL/min Glucose Level 113 Calcium Level 8.8 Total Bilirubin 0.7 Direct Bilirubin 0.00 Indirect Bilirubin 0.7 Aspartate Amino 44 Transf (AST/SGOT) Alanine 75 H Aminotransferase (AL T/SGPT) Alkaline Phosphatase 87 Total Protein 6.6 Albumin 3.7 Globulin 2.90 Albumin/Globulin 1.27 Ratio POC Venous Lactate 1.6 Test 10/31/18 04:35 White Blood Count 16.0 H Red Blood Count 4.46 Hemoglobin 13.4 Hematocrit 41.3 Mean Corpuscular 92.6 Volume Mean Corpuscular 30.0 Hemoglobin Mean Corpuscular 32.4 Hemoglobin Concent Red Cell 12.6 Distribution Width Platelet Count 189 # Mean Platelet Volume 11.1 H Immature 0.900 H Granulocytes % Neutrophils % 85.5 H Lymphocytes % 7.2 L Monocytes % 5.9 Eosinophils % 0.1 Basophils % 0.4 Nucleated Red Blood 0.0 Cells % Immature 0.140 H Granulocytes # Neutrophils # 13.7 H Lymphocytes # 1.2 Monocytes # 0.9 Eosinophils # 0.0 Basophils # 0.1 Nucleated Red Blood 0.0 Cells # Sodium Level 137 Potassium Level 3.2 L Chloride Level 108 Carbon Dioxide Level 21 Anion Gap 8 Blood Urea Nitrogen 5 L Creatinine 0.49 Est Glomerular > 60 Filtrat Rate mL/min Glucose Level 124 Lactic Acid Level 1.0 Calcium Level 8.6 Total Bilirubin 0.8 Direct Bilirubin 0.00 Indirect Bilirubin 0.8 Aspartate Amino 30 Transf (AST/SGOT) Alanine 67 Aminotransferase (AL T/SGPT) Alkaline Phosphatase 88 Total Protein 5.7 L Albumin 3.3 Globulin 2.40 Albumin/Globulin 1.37 Ratio Medications Medication Current Medications Ondansetron HCl (Zofran Inj) 4 mg BRIDGE ORDER PRN IV NAUSEA/VOMITING Last administered on 10/31/18at 13:27; Admin Dose 4 MG; Start 10/31/18 at 00:30; Stop 11/01/18 at 00:29 Acetaminophen (Tylenol Tab) 650 mg ER BRIDGE PRN PO .MILD PAIN 1-3 OR TEMP; Start 10/31/18 at 00:30; Stop 11/01/18 at 00:29 Sodium Chloride 1,000 ml @ 100 mls/hr Q10H IV Last administered on 10/31/18at 14:48; Admin Dose 100 MLS/HR; Start 10/31/18 at 02:22 IV Flush (NS 3 ml) 3 ml PER PROTOCOL IV ; Start 10/31/18 at 02:30 Ondansetron HCl (Zofran Inj) 4 mg Q6H PRN IV NAUSEA/VOMITING; Start 10/31/18 at 02:30 Acetaminophen (Tylenol Tab) 650 mg Q6H PRN PO .PAIN 1-3 OR TEMP; Start 10/31/18 at 02:30 Acetaminophen/ Hydrocodone Bitart ([place] (5/325)) 1 tab Q6H PRN PO .MOD PAIN 4- 6; Start 10/31/18 at 02:30 Acetaminophen/ Hydrocodone Bitart ([place] (5/325)) 2 tab Q6H PRN PO .SEVERE PAIN 7-10 Last administered on 10/31/18 14:46; Admin Dose 2 TAB; Start 10/31/18 at 02:30 Heparin Sodium (Porcine) (Heparin (5000 Units/1ml)) 5,000 unit Q12 SC Last administered on 10/31/18 08:57; Admin Dose 5,000 UNIT; Start 10/31/18 at 09:00 Senna (Senokot) 2 tab BID PRN PO CONSTIPATION; Start 10/31/18 at 02:30 Piperacillin Sod/ Tazobactam Sod 100 ml @ 200 mls/hr Q6 IVPB Last administered on 10/31/18 11:27; Admin Dose 200 MLS/HR; Start 10/31/18 at 06:00 Famotidine (Pepcid) 20 mg BID PO Last administered on 10/31/18at 06:11; Admin Dose 20 MG; Start 10/31/18 at 04:30 Al Hydrox/Mg Hydrox/Simethicone (Mag-Al Plus) 30 ml Q6H PRN PO GASTROINTESTINAL UPSET; Start 10/31/18 at 04:30 Phenazopyridine HCl (Pyridium) 200 mg TID PO Last administered on 10/31/18at 13:12; Admin Dose 200 MG; Start 10/31/18 at 09:00 ASHLI HEBERT Oct 31, 2018 15:06
[2018-10-31 15:24] VITALS: BP 117/58; PULSE 86; RESP 18
[2018-10-31] MEDS: DOCUSATE SODIUM 100 MG CAP PO SCH ×2 (17:52→21:42)
[2018-10-31 19:10] VITALS: BP 133/72; PULSE 82; RESP 20
[2018-10-31] MEDS: SENNA TAB PO SCH (21:51)
[2018-11-01] VITALS: BP 123/53; PULSE 94; RESP 20
[2018-11-01] MEDS: PIPER-TAZO 3.375 GM IV (PMX) 100 ML IVPB SCH ×4 (00:37→17:24)
[2018-11-01] MEDS: SOD CHLORIDE 0.9% 1,000 ML IV SCH ×2 (03:40→15:04)
[2018-11-01] MEDS: HYDROCODONE/APAP (5/325) TAB PO PRN (04:38)
[2018-11-01] MEDS: ACETAMINOPHEN 325 MG TAB PO PRN ×2 (06:29→12:19)
[2018-11-01 07:54] VITALS: BP 150/80; PULSE 65; RESP 17
--- NOTE | 2018-11-01 08:02 | PN ---
Date/Time of Note Date/Time of Note DATE: 11/01/18 TIME: 07:58 Assessment/Plan VTE Prophylaxis Risk score (from Ns)>0 risk: 2 SCD applied (from Ns): Yes Pharmacological prophylaxis: other Lines/Catheters IV Catheter Type (from Nrs): Peripheral IV Urinary Cath still in place: No Assessment/Plan Hospital Course Patient is feeling better but she still has nausea, vomiting and headaches. The dysuria is less and the flank pain is also less. Her white count is now normal. The urine culture still pending. Continue to strain the urine and the antibiotic Result Diagram: 11/01/186 11/01/186 Results 24hrs Laboratory Tests Test 11/01/18 04:46 White Blood Count 8.7 # Red Blood Count 4.28 Hemoglobin 13.0 Hematocrit 39.0 Mean Corpuscular Volume 91.1 Mean Corpuscular Hemoglobin 30.4 Mean Corpuscular Hemoglobin Concent 33.3 Red Cell Distribution Width 12.7 Platelet Count 195 Mean Platelet Volume 11.1 H Immature Granulocytes % 0.500 H Neutrophils % 83.4 H Lymphocytes % 10.4 L Monocytes % 5.1 Eosinophils % 0.1 Basophils % 0.5 Nucleated Red Blood Cells % 0.0 Immature Granulocytes # 0.040 H Neutrophils # 7.3 Lymphocytes # 0.9 Monocytes # 0.4 Eosinophils # 0.0 Basophils # 0.0 Nucleated Red Blood Cells # 0.0 Sodium Level 137 Potassium Level 3.1 L Chloride Level 107 Carbon Dioxide Level 23 Anion Gap 7 Blood Urea Nitrogen 4 L Creatinine 0.54 Est Glomerular Filtrat Rate mL/min > 60 Glucose Level 117 Hemoglobin A1c 5.3 Calcium Level 8.5 Phosphorus Level 2.0 L Magnesium Level 2.1 Subjective 24 Hr Interval Summary Free Text/Dictation Patient is more comfortable today, she still has nausea and vomiting. She has less dysuria and less flank pain. Exam/Review of Systems Exam Vitals Vital Signs Date Temp Pulse Resp B/P (MAP) Pulse Ox O2 O2 Flow FiO2 Time Delivery Rate 11/01/18 98.2 65 17 150/80 97 07:54 (103) 10/31/18 Room Air 00:00 Intake and Output 10/31/18 10/31/18 11/01/18 1515:00 23:00 07:00 IntakeIntake Total 100 ml 640 ml 1855 ml OutputOutput Total 1250 ml 2050 ml BalanceBalance 100 ml -610 ml -195 ml Constitutional: alert, oriented Gastrointestinal: soft Genitourinary - Female: No CVA tenderness Neurological: nl mental status Results Results 24hrs Laboratory Tests Test 11/01/18 04:46 White Blood Count 8.7 # Red Blood Count 4.28 Hemoglobin 13.0 Hematocrit 39.0 Mean Corpuscular Volume 91.1 Mean Corpuscular Hemoglobin 30.4 Mean Corpuscular Hemoglobin Concent 33.3 Red Cell Distribution Width 12.7 Platelet Count 195 Mean Platelet Volume 11.1 H Immature Granulocytes % 0.500 H Neutrophils % 83.4 H Lymphocytes % 10.4 L Monocytes % 5.1 Eosinophils % 0.1 Basophils % 0.5 Nucleated Red Blood Cells % 0.0 Immature Granulocytes # 0.040 H Neutrophils # 7.3 Lymphocytes # 0.9 Monocytes # 0.4 Eosinophils # 0.0 Basophils # 0.0 Nucleated Red Blood Cells # 0.0 Sodium Level 137 Potassium Level 3.1 L Chloride Level 107 Carbon Dioxide Level 23 Anion Gap 7 Blood Urea Nitrogen 4 L Creatinine 0.54 Est Glomerular Filtrat Rate mL/min > 60 Glucose Level 117 Hemoglobin A1c 5.3 Calcium Level 8.5 Phosphorus Level 2.0 L Magnesium Level 2.1 Medications Medication Current Medications Sodium Chloride 1,000 ml @ 100 mls/hr Q10H IV Last administered on 11/01/18at 03:40; Admin Dose 100 MLS/HR; Start 10/31/18 at 02:22 IV Flush (NS 3 ml) 3 ml PER PROTOCOL IV ; Start 10/31/18 at 02:30 Ondansetron HCl (Zofran Inj) 4 mg Q6H PRN IV NAUSEA/VOMITING Last administered on 10/31/18at 22:03; Admin Dose 4 MG; Start 10/31/18 at 02:30 Acetaminophen (Tylenol Tab) 650 mg Q6H PRN PO .PAIN 1-3 OR TEMP Last administered on 11/01/18at 06:29; Admin Dose 650 MG; Start 10/31/18 at 02:30 Acetaminophen/ Hydrocodone Bitart ([place] (5/325)) 1 tab Q6H PRN PO .MOD PAIN 4- 6 Last administered on 11/01/18at 04:38; Admin Dose 1 TAB; Start 10/31/18 at 02:30 Heparin Sodium (Porcine) (Heparin (5000 Units/1ml)) 5,000 unit Q12 SC Last administered on 10/31/18 21:52; Admin Dose 5,000 UNIT; Start 10/31/18 at 09:00 Piperacillin Sod/ Tazobactam Sod 100 ml @ 200 mls/hr Q6 IVPB Last administered on 11/01/18 06:19; Admin Dose 200 MLS/HR; Start 10/31/18 at 06:00 Famotidine (Pepcid) 20 mg BID PO Last administered on 10/31/18 21:51; Admin Dose 20 MG; Start 10/31/18 at 04:30 Al Hydrox/Mg Hydrox/Simethicone (Mag-Al Plus) 30 ml Q6H PRN PO GASTROINTESTINAL UPSET; Start 10/31/18 at 04:30 Phenazopyridine HCl (Pyridium) 200 mg TID PO Last administered on 10/31/18 21:42; Admin Dose 200 MG; Start 10/31/18 at 09:00 Senna (Senokot) 2 tab BID PO Last administered on 10/31/18 21:51; Admin Dose 2 TAB; Start 10/31/18 at 21:00 Docusate Sodium (Colace) 200 mg BID PO Last administered on 10/31/18 21:42; Admin Dose 200 MG; Start 10/31/18 at 15:00 ADELINA LOPEZ MD Nov 01, 2018 08:02
[2018-11-01] MEDS: SENNA TAB PO SCH ×2 (08:22→20:52)
[2018-11-01] MEDS: PHENAZOPYRIDINE 200 MG TAB PO SCH ×3 (08:22→20:46)
[2018-11-01] MEDS: FAMOTIDINE 20 MG TAB PO SCH ×2 (08:22→20:46)
[2018-11-01] MEDS: DOCUSATE SODIUM 100 MG CAP PO SCH ×2 (08:22→20:52)
[2018-11-01] MEDS: HEPARIN 5,000 UNIT/1 ML VIAL SC SCH ×2 (08:25→20:51)
[2018-11-01] MEDS: ONDANSETRON 4 MG INJ IV PRN ×2 (08:26→14:16)
[2018-11-01] MEDS: traMADol 50 MG TAB PO PRN ×2 (10:43→19:02)
[2018-11-01] MEDS ORDERED: POTASSIUM CHLORIDE (SR) 20 MEQ TAB PO STA (12:47)
--- NOTE | 2018-11-01 12:48 | PN ---
Date/Time of Note Date/Time of Note DATE: 11/01/18 TIME: 12:46 Assessment/Plan VTE Prophylaxis Risk score (from Ns)>0 risk: 2 [place] [facility] [place] contraindicated: other Pharmacological prophylaxis: heparin Lines/Catheters IV Catheter Type (from [facility]): Peripheral IV Urinary Cath still in place: No Assessment/Plan Hospital Course S: Patient seen by team, still with N/V. O: VS - see below PE: Gen: alert, oriented Head: normocephalic Eyes: nl conjunctiva ENMT: nl external ears & nose Neck: supple Cardiovascular: No jugular venous distention (JVD) Gastrointestinal: soft, non-tender, + CVA tenderness (Left flank tenderness) Extremities: No lower extremity edema bilaterally Neurological: No focal deficits Assessment/Plan: 48-year-old female with a history of left-sided ureterolithiasis status post stent placement with eventual removal here with bilateral flank, suprapubic and lower back pain, secondary to left distal uret eral lithiasis with hydronephrosis and underlying pyelonephritis. 1. Left mid distal ureterolithiasis with left hydronephrosis with perinephric stranding: Appreciate urology recommendations - slowly improving. -For now continue IV fluids, IV antibiotic -Strain urine -Continue Flomax per urology recommendations -Follow-up final culture results -Follow-up further recommendations from urology consult 2. Pyelonephritis: See #1 3. Sepsis: Improving now with treatment - as evidenced by leukocytosis and tachycardia: See #1 and #2 4. Mild hypokalemia: still present 3.1 - Will replete again today Result Diagram: 11/01/18 0446 11/01/18 0446 Results 24hrs Laboratory Tests Test 11/01/18 04:46 White Blood Count 8.7 # Red Blood Count 4.28 Hemoglobin 13.0 Hematocrit 39.0 Mean Corpuscular Volume 91.1 Mean Corpuscular Hemoglobin 30.4 Mean Corpuscular Hemoglobin Concent 33.3 Red Cell Distribution Width 12.7 Platelet Count 195 Mean Platelet Volume 11.1 H Immature Granulocytes % 0.500 H Neutrophils % 83.4 H Lymphocytes % 10.4 L Monocytes % 5.1 Eosinophils % 0.1 Basophils % 0.5 Nucleated Red Blood Cells % 0.0 Immature Granulocytes # 0.040 H Neutrophils # 7.3 Lymphocytes # 0.9 Monocytes # 0.4 Eosinophils # 0.0 Basophils # 0.0 Nucleated Red Blood Cells # 0.0 Sodium Level 137 Potassium Level 3.1 L Chloride Level 107 Carbon Dioxide Level 23 Anion Gap 7 Blood Urea Nitrogen 4 L Creatinine 0.54 Est Glomerular Filtrat Rate mL/min > 60 Glucose Level 117 Hemoglobin A1c 5.3 Calcium Level 8.5 Phosphorus Level 2.0 L Magnesium Level 2.1 Exam/Review of Systems Exam Vitals Vital Signs Date Temp Pulse Resp B/P (MAP) Pulse Ox O2 O2 Flow FiO2 Time Delivery Rate 11/01/18 98.2 65 17 150/80 97 07:54 (103) 10/31/18 Room Air 00:00 Intake and Output 10/31/18 10/31/18 11/01/18 1515:00 23:00 07:00 IntakeIntake Total 100 ml 640 ml 1855 ml OutputOutput Total 1250 ml 2050 ml BalanceBalance 100 ml -610 ml -195 ml Results Results 24hrs Laboratory Tests Test 11/01/18 04:46 White Blood Count 8.7 # Red Blood Count 4.28 Hemoglobin 13.0 Hematocrit 39.0 Mean Corpuscular Volume 91.1 Mean Corpuscular Hemoglobin 30.4 Mean Corpuscular Hemoglobin Concent 33.3 Red Cell Distribution Width 12.7 Platelet Count 195 Mean Platelet Volume 11.1 H Immature Granulocytes % 0.500 H Neutrophils % 83.4 H Lymphocytes % 10.4 L Monocytes % 5.1 Eosinophils % 0.1 Basophils % 0.5 Nucleated Red Blood Cells % 0.0 Immature Granulocytes # 0.040 H Neutrophils # 7.3 Lymphocytes # 0.9 Monocytes # 0.4 Eosinophils # 0.0 Basophils # 0.0 Nucleated Red Blood Cells # 0.0 Sodium Level 137 Potassium Level 3.1 L Chloride Level 107 Carbon Dioxide Level 23 Anion Gap 7 Blood Urea Nitrogen 4 L Creatinine 0.54 Est Glomerular Filtrat Rate mL/min > 60 Glucose Level 117 Hemoglobin A1c 5.3 Calcium Level 8.5 Phosphorus Level 2.0 L Magnesium Level 2.1 Medications Medication Current Medications Sodium Chloride 1,000 ml @ 100 mls/hr Q10H IV Last administered on 11/01/18at 03:40; Admin Dose 100 MLS/HR; Start 10/31/18 at 02:22 IV Flush (NS 3 ml) 3 ml PER PROTOCOL IV ; Start 10/31/18 at 02:30 Ondansetron HCl (Zofran Inj) 4 mg Q6H PRN IV NAUSEA/VOMITING Last administered on 11/01/18 08:26; Admin Dose 4 MG; Start 10/31/18 at 02:30 Acetaminophen (Tylenol Tab) 650 mg Q6H PRN PO .PAIN 1-3 OR TEMP Last administered on 11/01/18 12:19; Admin Dose 650 MG; Start 10/31/18 at 02:30 Acetaminophen/ Hydrocodone Bitart ([place] (5/325)) 1 tab Q6H PRN PO .MOD PAIN 4- 6 Last administered on 11/01/18 04:38; Admin Dose 1 TAB; Start 10/31/18 at 02:30 Heparin Sodium (Porcine) (Heparin (5000 Units/1ml)) 5,000 unit Q12 SC Last administered on 11/01/18 08:25; Admin Dose 5,000 UNIT; Start 10/31/18 at 09:00 Piperacillin Sod/ Tazobactam Sod 100 ml @ 200 mls/hr Q6 IVPB Last administered on 11/01/18 11:31; Admin Dose 200 MLS/HR; Start 10/31/18 at 06:00 Famotidine (Pepcid) 20 mg BID PO Last administered on 11/01/18 08:22; Admin Dose 20 MG; Start 10/31/18 at 04:30 Al Hydrox/Mg Hydrox/Simethicone (Mag-Al Plus) 30 ml Q6H PRN PO GASTROINTESTINAL UPSET; Start 10/31/18 at 04:30 Phenazopyridine HCl (Pyridium) 200 mg TID PO Last administered on 11/01/18 08:22; Admin Dose 200 MG; Start 10/31/18 at 09:00 Senna (Senokot) 2 tab BID PO Last administered on 11/01/18 08:22; Admin Dose 2 TAB; Start 10/31/18 at 21:00 Docusate Sodium (Colace) 200 mg BID PO Last administered on 11/01/18 08:22; Admin Dose 200 MG; Start 10/31/18 at 15:00 Tramadol HCl (Ultram) 50 mg Q6H PRN PO MODERATE PAIN LEVEL 4-6 Last adminis tered on 3/1/19at 10:43; Admin Dose 50 MG; Start 11/01/18 at 11:00 ASHLI HEBERT Nov 01, 2018 12:48
[2018-11-01 14:07] VITALS: BP 162/87; PULSE 74; RESP 18
[2018-11-01] MEDS: KETOROLAC 15 MG INJ IV PRN (15:03)
[2018-11-01] MEDS ORDERED: POTASSIUM PHOSPHATE 20 MEQ in SOD CHLORIDE 0.9% 250 ML IVPB ONE (16:30)
[2018-11-01 19:15] VITALS: BP 135/85; PULSE 77; RESP 20
[2018-11-02] MEDS: PIPER-TAZO 3.375 GM IV (PMX) 100 ML IVPB SCH ×2 (00:14→05:57)
[2018-11-02 02:00] VITALS: BP 167/84; PULSE 71; RESP 20
[2018-11-02 02:15] VITALS: BP 145/67; PULSE 68; RESP 20
[2018-11-02] MEDS: KETOROLAC 15 MG INJ IV PRN ×2 (03:28→18:19)
[2018-11-02] MEDS: SOD CHLORIDE 0.9% 1,000 ML IV SCH ×3 (04:22→21:27)
[2018-11-02 07:18] VITALS: BP 151/80; PULSE 76; RESP 18
[2018-11-02] MEDS: SENNA TAB PO SCH ×2 (08:43→20:52)
[2018-11-02] MEDS: FAMOTIDINE 20 MG TAB PO SCH ×2 (08:43→20:52)
[2018-11-02] MEDS: DOCUSATE SODIUM 100 MG CAP PO SCH ×2 (08:43→20:52)
[2018-11-02] MEDS: PHENAZOPYRIDINE 200 MG TAB PO SCH ×3 (08:43→20:52)
[2018-11-02] MEDS: traMADol 50 MG TAB PO PRN (08:45)
[2018-11-02] MEDS: HEPARIN 5,000 UNIT/1 ML VIAL SC SCH ×2 (08:45→21:02)
--- NOTE | 2018-11-02 12:14 | PN ---
Date/Time of Note Date/Time of Note DATE: 11/02/18 TIME: 12:12 Assessment/Plan VTE Prophylaxis Risk score (from Ns)>0 risk: 3 SCD applied (from Ns): No SCD contraindicated: other Pharmacological prophylaxis: heparin Lines/Catheters IV C[facility]ter Type (from [facility]): Peripheral IV Urinary Cath still in place: No Assessment/Plan Hospital Course S: Patient today with less abdominal pain nausea vomiting symptoms. O: VS - see below PE: Gen: alert, oriented Head: normocephalic Eyes: nl conjunctiva ENMT: nl external ears & nose Neck: supple Cardiovascular: No jugular venous distention (JVD) Gastrointestinal: soft, non-tender, less + CVA tenderness (Left flank tenderness) Extremities: No lower extremity edema bilaterally Neurological: No focal deficits Assessment/Plan: 48-year-old female with a history of left-sided ureterolithiasis status post stent placement with eventual removal here with bilateral flank, suprapubic and lower back pain, secondary to left distal ureteral lithiasis with hydronephrosis and underlying pyelonephritis. 1. Left mid distal ureterolithiasis with left hydronephrosis with perinephric stranding: Appreciate urology recommendations - slowly improving. Urine culture does show E. coli -For now continue IV fluids, we will switch IV antibiotics today based on sensitivities -Strain urine -Continue Flomax per urology recommendations -Follow-up final culture results -Follow-up further recommendations from urology consult 2. Pyelonephritis: See #1 3. Sepsis: Improving now with treatment - as evidenced by leukocytosis and tachycardia: See #1 and #2 4. Mild hypokalemia: Resolved now -Monitor Dispo: Likely home in the next 1-2 days once patient passes stone, infection improved and clearance given by urology team, likely will need Flomax and p.o. antibiotics upon discharge Result Diagram: 11/02/189 11/02/18448 Results 24hrs Laboratory Tests Test 11/02/18 04:49 White Blood Count 6.1 # Red Blood Count 4.55 Hemoglobin 13.7 Hematocrit 41.5 Mean Corpuscular Volume 91.2 Mean Corpuscular Hemoglobin 30.1 Mean Corpuscular Hemoglobin Concent 33.0 Red Cell Distribution Width 12.7 Platelet Count 232 Mean Platelet Volume 10.9 H Immature Granulocytes % 0.300 Neutrophils % 63.1 Lymphocytes % 26.6 Monocytes % 7.7 Eosinophils % 1.6 Basophils % 0.7 Nucleated Red Blood Cells % 0.0 Immature Granulocytes # 0.020 Neutrophils # 3.9 Lymphocytes # 1.6 Monocytes # 0.5 Eosinophils # 0.1 Basophils # 0.0 Nucleated Red Blood Cells # 0.0 Sodium Level 139 Potassium Level 3.6 Chloride Level 105 Carbon Dioxide Level 25 Anion Gap 9 Blood Urea Nitrogen 4 L Creatinine 0.54 Est Glomerular Filtrat Rate mL/min > 60 Glucose Level 100 Calcium Level 8.6 Phosphorus Level 3.0 Magnesium Level 2.0 Exam/Review of Systems Exam Vitals Vital Signs Date Temp Pulse Resp B/P (MAP) Pulse Ox O2 O2 Flow FiO2 Time Delivery Rate 11/02/18 98.2 76 18 151/80 96 07:18 (103) 11/02/18 Room Air 02:15 Intake and Output 11/01/18 11/01/18 11/02/18 1515:00 23:00 07:00 IntakeIntake Total 975 ml 554.5455 ml 1940 ml OutputOutput Total 600 ml 400 ml BalanceBalance 375 ml 154.5455 ml 1940 ml Results Results 24hrs Laboratory Tests Test 11/02/18 04:49 White Blood Count 6.1 # Red Blood Count 4.55 Hemoglobin 13.7 Hematocrit 41.5 Mean Corpuscular Volume 91.2 Mean Corpuscular Hemoglobin 30.1 Mean Corpuscular Hemoglobin Concent 33.0 Red Cell Distribution Width 12.7 Platelet Count 232 Mean Platelet Volume 10.9 H Immature Granulocytes % 0.300 Neutrophils % 63.1 Lymphocytes % 26.6 Monocytes % 7.7 Eosinophils % 1.6 Basophils % 0.7 Nucleated Red Blood Cells % 0.0 Immature Granulocytes # 0.020 Neutrophils # 3.9 Lymphocytes # 1.6 Monocytes # 0.5 Eosinophils # 0.1 Basophils # 0.0 Nucleated Red Blood Cells # 0.0 Sodium Level 139 Potassium Level 3.6 Chloride Level 105 Carbon Dioxide Level 25 Anion Gap 9 Blood Urea Nitrogen 4 L Creatinine 0.54 Est Glomerular Filtrat Rate mL/min > 60 Glucose Level 100 Calcium Level 8.6 Phosphorus Level 3.0 Magnesium Level 2.0 Medications Medication Current Medications Sodium Chloride 1,000 ml @ 100 mls/hr Q10H IV Last administered on 11/02/18at 10:02; Admin Dose 100 MLS/HR; Start 10/31/18 at 02:22 IV Flush (NS 3 ml) 3 ml PER PROTOCOL IV ; Start 10/31/18 at 02:30 Ondansetron HCl (Zofran Inj) 4 mg Q6H PRN IV NAUSEA/VOMITING Last administered on 11/01/18 14:16; Admin Dose 4 MG; Start 10/31/18 at 02:30 Acetaminophen (Tylenol Tab) 650 mg Q6H PRN PO .PAIN 1-3 OR TEMP Last administered on 11/01/18 12:19; Admin Dose 650 MG; Start 10/31/18 at 02:30 Acetaminophen/ Hydrocodone Bitart ([place] (5/325)) 1 tab Q6H PRN PO .MOD PAIN 4- 6 Last administered on 11/01/18 04:38; Admin Dose 1 TAB; Start 10/31/18 at 02:30 Heparin Sodium (Porcine) (Heparin (5000 Units/1ml)) 5,000 unit Q12 SC Last administered on 11/02/18 08:45; Admin Dose 5,000 UNIT; Start 10/31/18 at 09:00 Famotidine (Pepcid) 20 mg BID PO Last administered on 11/02/18 08:43; Admin Dose 20 MG; Start 10/31/18 at 04:30 Al Hydrox/Mg Hydrox/Simethicone (Mag-Al Plus) 30 ml Q6H PRN PO GASTROINTESTINAL UPSET; Start 10/31/18 at 04:30 Phenazopyridine HCl (Pyridium) 200 mg TID PO Last administered on 11/02/18 08:43; Admin Dose 200 MG; Start 10/31/18 at 09:00 Senna (Senokot) 2 tab BID PO Last administered on 11/02/18 08:43; Admin Dose 2 TAB; Start 10/31/18 at 21:00 Docusate Sodium (Colace) 200 mg BID PO Last administered on 11/02/18 08:43; Admin Dose 200 MG; Start 10/31/18 at 15:00 Tramadol HCl (Ultram) 50 mg Q6H PRN PO MODERATE PAIN LEVEL 4-6 Last administered on 11/02/18 08:45; Admin Dose 50 MG; Start 11/01/18 at 11:00 Ketorolac Tromethamine (Toradol) 15 mg Q12H PRN IV PAIN LEVEL ABOVE 8 Last administered on 11/02/18at 03:28; Admin Dose 15 MG; Start 11/01/18 at 15:00; Stop 11/04/18 at 14:59 Ciprofloxacin/ Dextrose 200 ml @ 200 mls/hr Q24H IVPB ; Start 11/02/18 at 12:30; Status ASHLI CATES Nov 02, 2018 12:14
--- NOTE | 2018-11-02 13:29 | CONS ---
Consult Date/Type/Reason Admit Date/Time Oct 31, 2018 at 00:12 Initial Consult Date 10/31/18 Type of Consultation: Urology Reason for Consultation Urinary tract infection and left ureteral stone that is small. Requesting Provider: REMINGTON ZAVALA MD Date/Time of Note DATE: 11/02/18 TIME: 13:26 Subjective Patient states she is feeling much better, she has no nausea and no vomiting. She has mild headache. She describes her pain as between 5 and 6. She denies any dysuria. Objective Vitals Vital Signs Date Temp Pulse Resp B/P (MAP) Pulse Ox O2 O2 Flow FiO2 Time Delivery Rate 11/02/18 98.2 76 18 151/80 96 07:18 (103) 11/02/18 Room Air 02:15 Intake and Output 11/01/18 11/01/18 11/02/18 1515:00 23:00 07:00 IntakeIntake Total 975 ml 554.5455 ml 1940 ml OutputOutput Total 600 ml 400 ml BalanceBalance 375 ml 154.5455 ml 1940 ml Exam Abdomen is soft. There is no flank tenderness. Urine culture grew E. coli sensitive to all antibiotics except ampicillin on 1 culture and sensitive to everything on another culture. Results/Medications Result Diagram: 11/02/18 0449 11/02/18 0449 Results 24 hrs Laboratory Tests Test 11/02/18 04:49 White Blood Count 6.1 # Red Blood Count 4.55 Hemoglobin 13.7 Hematocrit 41.5 Mean Corpuscular Volume 91.2 Mean Corpuscular Hemoglobin 30.1 Mean Corpuscular Hemoglobin Concent 33.0 Red Cell Distribution Width 12.7 Platelet Count 232 Mean Platelet Volume 10.9 H Immature Granulocytes % 0.300 Neutrophils % 63.1 Lymphocytes % 26.6 Monocytes % 7.7 Eosinophils % 1.6 Basophils % 0.7 Nucleated Red Blood Cells % 0.0 Immature Granulocytes # 0.020 Neutrophils # 3.9 Lymphocytes # 1.6 Monocytes # 0.5 Eosinophils # 0.1 Basophils # 0.0 Nucleated Red Blood Cells # 0.0 Sodium Level 139 Potassium Level 3.6 Chloride Level 105 Carbon Dioxide Level 25 Anion Gap 9 Blood Urea Nitrogen 4 L Creatinine 0.54 Est Glomerular Filtrat Rate mL/min > 60 Glucose Level 100 Calcium Level 8.6 Phosphorus Level 3.0 Magnesium Level 2.0 Home Meds Active Scripts Hydrocodone/Acetaminophen ([place] 5-325 Tablet) 1 Each Tablet, 1 TAB PO Q6H PRN for PAIN, #20 TAB Prov:LI VU MD 08/05/17 Ibuprofen* (Ibuprofen*) 800 Mg Tab, 800 MG PO TID for 7 Days, #21 TAB Prov:YOMI CARRENO MD 05/10/17 Hydromorphone Hcl* (Dilaudid*) 2 Mg Tablet, 2 MG PO Q4H PRN for PAIN LEVEL 7-10 for 5 Days, #10 TAB Prov:YOMI CARRENO MD 05/10/17 Discontinued Scripts Metronidazole* (Flagyl*) 500 Mg Tablet, 500 MG PO TID for 7 Days, TAB Prov:LI VU MD 08/05/17 Ciprofloxacin Hcl* (Ciprofloxacin Hcl*) 250 Mg Tablet, 250 MG PO BID, #14 TAB Prov:LI VU MD 08/05/17 Tamsulosin Hcl* (Flomax*) 0.4 Mg Cap.er.24h, 0.4 MG PO BID for 30 Days, #30 CAP Prov:YOMI CARRENO MD 05/10/17 Oxybutynin Chloride* (Ditropan* XL) 5 Mg Tabsr, 10 MG PO DAILY for 30 Days, #30 TAB Prov:YOMI CARRENO MD 05/10/17 Medications Current Medications Sodium Chloride 1,000 ml @ 100 mls/hr Q10H IV Last administered on 11/02/18at 10:02; Admin Dose 100 MLS/HR; Start 10/31/18 at 02:22 IV Flush (NS 3 ml) 3 ml PER PROTOCOL IV ; Start 10/31/18 at 02:30 Ondansetron HCl (Zofran Inj) 4 mg Q6H PRN IV NAUSEA/VOMITING Last administered on 11/01/18at 14:16; Admin Dose 4 MG; Start 10/31/18 at 02:30 Acetaminophen (Tylenol Tab) 650 mg Q6H PRN PO .PAIN 1-3 OR TEMP Last administered on 11/01/18at 12:19; Admin Dose 650 MG; Start 10/31/18 at 02:30 Acetaminophen/ Hydrocodone Bitart ([place] (5/325)) 1 tab Q6H PRN PO .MOD PAIN 4- 6 Last administered on 11/01/18 04:38; Admin Dose 1 TAB; Start 10/31/18 at 02:30 Heparin Sodium (Porcine) (Heparin (5000 Units/1ml)) 5,000 unit Q12 SC Last administered on 11/02/18 08:45; Admin Dose 5,000 UNIT; Start 10/31/18 at 09:00 Famotidine (Pepcid) 20 mg BID PO Last administered on 11/02/18 08:43; Admin Dose 20 MG; Start 10/31/18 at 04:30 Al Hydrox/Mg Hydrox/Simethicone (Mag-Al Plus) 30 ml Q6H PRN PO GASTROINTESTINAL UPSET; Start 10/31/18 at 04:30 Phenazopyridine HCl (Pyridium) 200 mg TID PO Last administered on 11/02/18 13:18; Admin Dose 200 MG; Start 10/31/18 at 09:00 Senna (Senokot) 2 tab BID PO Last administered on 11/02/18 08:43; Admin Dose 2 TAB; Start 10/31/18 at 21:00 Docusate Sodium (Colace) 200 mg BID PO Last administered on 11/02/18 08:43; Admin Dose 200 MG; Start 10/31/18 at 15:00 Tramadol HCl (Ultram) 50 mg Q6H PRN PO MODERATE PAIN LEVEL 4-6 Last administered on 11/02/18 08:45; Admin Dose 50 MG; Start 11/01/18 at 11:00 Ketorolac Tromethamine (Toradol) 15 mg Q12H PRN IV PAIN LEVEL ABOVE 8 Last administered on 11/02/18 03:28; Admin Dose 15 MG; Start 11/01/18 at 15:00; Stop 11/04/18 at 14:59 Ciprofloxacin/ Dextrose 200 ml @ 200 mls/hr Q24H IVPB ; Start 11/02/18 at 13:30 Assessment/Plan Hospital Course (Demo Recall) 48-year-old female presented to the emergency room with bilateral flank pain, not feeling good, nausea and urinary frequency and urgency. She is known to have a history of kidney stones and had a JJ stent inserted in April 2017 and removed in September 2017. Upon admission she underwent a CT scan of the abdomen and pelvis and that showed: The lung bases are clear. Diffuse fatty changes of the liver are present. The gallbladder lumen is mildly distended. There is no wall thickening or pericholecystic fluid. The pancreas and spleen are unremarkable. There is moderate left hydronephrosis with hydroureter. Along the course of the ureter there is a 2 mm x 2.7 mm calculus in the level of the pelvic inlet. The left kidney also retains nonobstructing stones in the upper pole. There is moderate perinephric stranding. The urinary bladder is clear. The right kidney is unremarkable. The segments of small and large bowel are nondistended with no inflammatory change. A few scattered colonic diverticular changes are seen. There is an umbilical hernia with minimal fat retention. The skeleton is negative. There is no aneurysm. Therefore a urological consultation was requested. Patient did have symptoms of urinary tract infection. The stone that she has in the left ureter is small and is not obstructing itself. She should be able to pass it on her own. Also there is a small stone in the kidney which also is asymptomatic. The urine culture shows E. coli and that is sensitive to the Cipro which she is on at the present. Urologically there is no plan for any surgical intervention. The small stone in her ureter she should be able to pass it if she has not passed it yet and for the urinary tract infection she should continue the Cipro for another 10 days. ADELINA LOPEZ MD Nov 02, 2018 13:29
[2018-11-02] MEDS ORDERED: CIPROFLOXACIN 400MG/D5W 200 ML IVPB SCH (13:30)
[2018-11-02 13:45] VITALS: BP 180/93; PULSE 71; RESP 18
[2018-11-02 20:43] VITALS: BP 141/92; PULSE 77; RESP 20
[2018-11-02] MEDS: ONDANSETRON 4 MG INJ IV PRN (20:54)
[2018-11-03] MEDS: SOD CHLORIDE 0.9% 1,000 ML IV SCH ×2 (00:22→07:24)
[2018-11-03] MEDS: traMADol 50 MG TAB PO PRN ×2 (01:41→08:46)
[2018-11-03 02:20] VITALS: BP 138/84; PULSE 71; RESP 17
[2018-11-03 08:05] VITALS: BP 142/81; PULSE 67; RESP 16
[2018-11-03] MEDS: DOCUSATE SODIUM 100 MG CAP PO SCH (08:39)
[2018-11-03] MEDS: SENNA TAB PO SCH (08:40)
[2018-11-03] MEDS: FAMOTIDINE 20 MG TAB PO SCH (08:40)
[2018-11-03] MEDS: PHENAZOPYRIDINE 200 MG TAB PO SCH ×2 (08:40→12:27)
[2018-11-03] MEDS: HEPARIN 5,000 UNIT/1 ML VIAL SC SCH (08:41)
[2018-11-03] MEDS: ACETAMINOPHEN 325 MG TAB PO PRN (09:55)
[2018-11-03] MEDS ORDERED: POTASSIUM CHLORIDE (SR) 20 MEQ TAB PO STA (10:58)
--- NOTE | 2018-11-03 11:04 | CONS ---
Consult Date/Type/Reason Admit Date/Time Oct 31, 2018 at 00:12 Initial Consult Date 10/31/18 Type of Consultation: Urology Reason for Consultation Left ureteral stone and urinary tract infection Requesting Provider: REMINGTON ZAVALA MD Date/Time of Note DATE: 11/03/18 TIME: 11:02 Subjective Patient states that she is feeling much better, she denies any flank pain, there is no nausea or vomiting and no dysuria Objective Vitals Vital Signs Date Temp Pulse Resp B/P (MAP) Pulse Ox O2 O2 Flow FiO2 Time Delivery Rate 11/03/18 97.6 67 16 142/81 97 08:05 (101) 11/02/18 Room Air 02:15 Intake and Output 11/02/18 11/02/18 11/03/18 1515:00 23:00 07:00 IntakeIntake Total 1200 ml 750 ml BalanceBalance 1200 ml 750 ml Exam Abdomen is soft, there is no flank tenderness. Results/Medications Result Diagram: 11/03/18 0448 11/03/18 0448 Results 24 hrs Laboratory Tests Test 11/03/18 04:48 White Blood Count 6.3 Red Blood Count 4.45 Hemoglobin 13.3 Hematocrit 40.6 Mean Corpuscular Volume 91.2 Mean Corpuscular Hemoglobin 29.9 Mean Corpuscular Hemoglobin Concent 32.8 Red Cell Distribution Width 12.7 Platelet Count 255 Mean Platelet Volume 10.5 H Immature Granulocytes % 0.300 Neutrophils % 41.5 Lymphocytes % 41.0 Monocytes % 13.0 H Eosinophils % 3.2 Basophils % 1.0 Nucleated Red Blood Cells % 0.0 Immature Granulocytes # 0.020 Neutrophils # 2.6 Lymphocytes # 2.6 Monocytes # 0.8 Eosinophils # 0.2 Basophils # 0.1 Nucleated Red Blood Cells # 0.0 Sodium Level 140 Potassium Level 3.2 L Chloride Level 109 Carbon Dioxide Level 24 Anion Gap 7 Blood Urea Nitrogen 11 Creatinine 0.55 Est Glomerular Filtrat Rate mL/min > 60 Glucose Level 104 Calcium Level 8.6 Phosphorus Level 3.6 Magnesium Level 1.9 Home Meds Active Scripts Hydrocodone/Acetaminophen ([place] 5-325 Tablet) 1 Each Tablet, 1 TAB PO Q6H PRN for PAIN, #20 TAB Prov:LI VU MD 08/05/17 Ibuprofen* (Ibuprofen*) 800 Mg Tab, 800 MG PO TID for 7 Days, #21 TAB Prov:YOMI CARRENO MD 05/10/17 Hydromorphone Hcl* (Dilaudid*) 2 Mg Tablet, 2 MG PO Q4H PRN for PAIN LEVEL 7-10 for 5 Days, #10 TAB Prov:YOMI CARRENO MD 05/10/17 Discontinued Scripts Metronidazole* (Flagyl*) 500 Mg Tablet, 500 MG PO TID for 7 Days, TAB Prov:LI VU MD 08/05/17 Ciprofloxacin Hcl* (Ciprofloxacin Hcl*) 250 Mg Tablet, 250 MG PO BID, #14 TAB Prov:LI VU MD 08/05/17 Tamsulosin Hcl* (Flomax*) 0.4 Mg Cap.er.24h, 0.4 MG PO BID for 30 Days, #30 CAP Prov:YOMI CARRENO MD 05/10/17 Oxybutynin Chloride* (Ditropan* XL) 5 Mg Tabsr, 10 MG PO DAILY for 30 Days, #30 TAB Prov:YOMI CARRENO MD 05/10/17 Medications Current Medications Sodium Chloride 1,000 ml @ 100 mls/hr Q10H IV Last administered on 11/03/18at 07:24; Admin Dose 100 MLS/HR; Start 10/31/18 at 02:22 IV Flush (NS 3 ml) 3 ml PER PROTOCOL IV ; Start 10/31/18 at 02:30 Ondansetron HCl (Zofran Inj) 4 mg Q6H PRN IV NAUSEA/VOMITING Last administered on 11/02/18at 20:54; Admin Dose 4 MG; Start 10/31/18 at 02:30 Acetaminophen (Tylenol Tab) 650 mg Q6H PRN PO .PAIN 1-3 OR TEMP Last administered on 11/03/18 09:55; Admin Dose 650 MG; Start 10/31/18 at 02:30 Acetaminophen/ Hydrocodone Bitart ([place] (5/325)) 1 tab Q6H PRN PO .MOD PAIN 4- 6 Last administered on 11/01/18 04:38; Admin Dose 1 TAB; Start 10/31/18 at 02:30 Heparin Sodium (Porcine) (Heparin (5000 Units/1ml)) 5,000 unit Q12 SC Last administered on 11/03/18 08:41; Admin Dose 5,000 UNIT; Start 10/31/18 at 09:00 Famotidine (Pepcid) 20 mg BID PO Last administered on 11/03/18 08:40; Admin Dose 20 MG; Start 10/31/18 at 04:30 Al Hydrox/Mg Hydrox/Simethicone (Mag-Al Plus) 30 ml Q6H PRN PO GASTROINTESTINAL UPSET; Start 10/31/18 at 04:30 Phenazopyridine HCl (Pyridium) 200 mg TID PO Last administered on 11/03/18 08:40; Admin Dose 200 MG; Start 10/31/18 at 09:00 Senna (Senokot) 2 tab BID PO Last administered on 11/03/18 08:40; Admin Dose 2 TAB; Start 10/31/18 at 21:00 Docusate Sodium (Colace) 200 mg BID PO Last administered on 11/03/18 08:39; Admin Dose 200 MG; Start 10/31/18 at 15:00 Tramadol HCl (Ultram) 50 mg Q6H PRN PO MODERATE PAIN LEVEL 4-6 Last administered on 11/03/18 08:46; Admin Dose 50 MG; Start 11/01/18 at 11:00 Ketorolac Tromethamine (Toradol) 15 mg Q12H PRN IV PAIN LEVEL ABOVE 8 Last administered on 11/02/18 18:19; Admin Dose 15 MG; Start 11/01/18 at 15:00; Stop 11/04/18 at 14:59 Ciprofloxacin/ Dextrose 200 ml @ 200 mls/hr Q24H IVPB Last administered on 11/02/18 14:03; Admin Dose 200 MLS/HR; Start 11/02/18 at 13:30 Potassium Chloride (Klor-Con 20) 40 meq ONCE STAT PO ; Start 11/03/18 at 10:58; Stop 11/03/18 at 10:59; Status UNV Assessment/Plan Hospital Course (Demo Recall) 48-year-old female presented to the emergency room with bilateral flank pain, not feeling good, nausea and urinary frequency and urgency. She is known to have a history of kidney stones and had a JJ stent inserted in April 2017 and removed in September 2017. Upon admission she underwent a CT scan of the abdomen and pelvis and that showed: The lung bases are clear. Diffuse fatty changes of the liver are present. The gallbladder lumen is mildly distended. There is no wall thickening or anamaria cholecystic fluid. The pancreas and spleen are unremarkable. There is moderate left hydronephrosis with hydroureter. Along the course of the ureter there is a 2 mm x 2.7 mm calculus in the level of the pelvic inlet. The left kidney also retains nonobstructing stones in the upper pole. There is mod erate perinephric stranding. The urinary bladder is clear. The right kidney is unremarkable. The segments of small and large bowel are nondistended with no inflammatory change. A few scattered colonic diverticular changes are seen. There is an umbilical hernia with minimal fat retention. The skeleton is negative. There is no aneurysm. Therefore a urological consultation was requested. Patient did have symptoms of urinary tract infection. The stone that she has in the left ureter is small and is not obstructing itself. She should be able to pass it on her own. Also there is a small stone in the kidney which also is asymptomatic. The urine culture shows E. coli and that is sensitive to the Cipro which she is on at the present. Urologically there is no plan for any surgical intervention. The small stone in her ureter she should be able to pass it if she has not passed it yet and for the urinary tract infection she should continue the Cipro for another 10 days. Patient is doing much better. She has no pain and no dysuria. No nausea or vomiting and no flank pain. From a urological standpoint she may be discharged home today and continue the Cipro ADELINA LOPEZ MD Nov 03, 2018 11:04
--- NOTE | 2018-11-03 11:59 | PDOCDIS ---
Discharge Instructions CONDITION [id number] Patient Condition: [id number] Stable HOME CARE INSTRUCTIONS: [id number] Diet Instructions: [id number] Regular ACTIVITY: [id number] Activity Restrictions: [id number] Slowly Increase Activity Rest between Activity Avoid heavy lifting [id number] Bathing Restrictions: [id number] Shower FOLLOW UP/APPOINTMENTS Follow-up Plan Acute medications as prescribed, see your doctor in clinic in the next 1 week. ASHLI HEBERT Nov 03, 2018 11:59
[2018-11-03] MEDS ORDERED: TRAM50TA2 PO (12:03)
[2018-11-03] MEDS ORDERED: CIPR500T4 PO (12:03)
--- NOTE | 2018-11-03 12:07 | DS ---
Date/Time of Note Date/Time of Note DATE: 11/03/18 TIME: 12:05 Discharge Summary Admission/Discharge Info Admit Date/Time Oct 31, 2018 at 00:12 Discharge Date/Time Discharge Diagnosis 1. Left mid distal ureterolithiasis with left hydronephrosis with perinephric stranding: Appreciate urology recommendations - slowly improving -also treated for UTI 2. Pyelonephritis: See #1 3. Sepsis: Secondary to #1, improving now with treatment 4. Mild hypokalemia: Resolved now Patient Condition: Stable Hx of Present Illness 48-year-old female with a history of left-sided ureterolithiasis status post stent with eventual removal, history of UTI, depression who presents to the ER complaining of bilateral flank, suprapubic and lower back pain. Symptom has been progressively getting worse for the past several days. She also reported burning sensation on urination. On further questioning, she reported constipation. Last bowel movement was a week ago. She presents the ER, UA was consistent with UTI. CT abdomen/pelvis shows Left mid distal ureter stool retention producing moderate left hydronephrosis with perinephric stranding, nonobstructing stone retention in the left upper pole, colonic diverticulosis changes and fatty liver. Patient was initially tachycardic with a heart rate of 110, WBC almost 18,000. She has remained afebrile. Hospital Course Patient was admitted, given IV fluids, antibiotics, pain control medications. Seen by urology team during this hospital stay. Patient was medically treated for the kidney stones or pyelonephritis. Her sepsis secondary to UTI/pyelonephritis also improved. Her fever leukocytosis resolved, she was able to ambulate, tolerated p.o. diet. Her urine culture was positive for E. coli. After getting clearance from the urology team, because the patient is clinically improved she will be discharged home today in improved condition. See below for full list of discharge medications. Home Meds Active Scripts Ciprofloxacin Hcl* (Ciprofloxacin Hcl*) 500 Mg Tablet, 500 MG PO BID for 10 Days, #20 TAB Prov:ASHLI HEBERT S. 11/03/18 Tramadol HCl (Tramadol HCl) 50 Mg Tablet, 50 MG PO Q6H PRN for MODERATE PAIN LEVEL 4-6, #30 TAB Prov:ASHLI HEBERT S. 11/03/18 Discontinued Scripts Hydrocodone/Acetaminophen ([place] 5-325 Tablet) 1 Each Tablet, 1 TAB PO Q6H PRN for PAIN, #20 TAB Prov:LI VU MD 08/05/17 Ibuprofen* (Ibuprofen*) 800 Mg Tab, 800 MG PO TID for 7 Days, #21 TAB Prov:YOMI CARRENO MD 05/10/17 Hydromorphone Hcl* (Dilaudid*) 2 Mg Tablet, 2 MG PO Q4H PRN for PAIN LEVEL 7-10 for 5 Days, #10 TAB Prov:YOMI CARRENO MD 05/10/17 Metronidazole* (Flagyl*) 500 Mg Tablet, 500 MG PO TID for 7 Days, TAB Prov:LI VU MD 08/05/17 Ciprofloxacin Hcl* (Ciprofloxacin Hcl*) 250 Mg Tablet, 250 MG PO BID, #14 TAB Prov:LI VU MD 08/05/17 Tamsulosin Hcl* (Flomax*) 0.4 Mg Cap.er.24h, 0.4 MG PO BID for 30 Days, #30 CAP Prov:YOMI CARRENO MD 05/10/17 Oxybutynin Chloride* (Ditropan* XL) 5 Mg Tabsr, 10 MG PO DAILY for 30 Days, #30 TAB Prov:YOMI CARRENO MD 05/10/17 Follow-up Plan Acute medications as prescribed, see your doctor in clinic in the next 1 week. Primary Care Provider Care Physician No Primary Time spent on discharge: > 30 minutes Pending Labs Laboratory Tests Test 11/03/18 04:48 White Blood Count 6.3 10^3/ul (4.8-10.8) Red Blood Count 4.45 10^6/ul (4.20-5.40) Hemoglobin 13.3 g/dl (12.0-16.0) Hematocrit 40.6 % (37.0-47.0) Mean Corpuscular Volume 91.2 fl (82.0-101.0) Mean Corpuscular Hemoglobin 29.9 pg (29.0-33.0) Mean Corpuscular Hemoglobin Concent 32.8 g/dl (32.0-37.0) Red Cell Distribution Width 12.7 % (11.5-14.5) Platelet Count 255 10^3/UL (140-415) Mean Platelet Volume 10.5 fl (7.4-10.4) Immature Granulocytes % 0.300 % (0.001-0.429) Neutrophils % 41.5 % (39.0-77.0) Lymphocytes % 41.0 % (15.0-51.0) Monocytes % 13.0 % (0.0-11.0) Eosinophils % 3.2 % (0.0-7.0) Basophils % 1.0 % (0.0-2.0) Nucleated Red Blood Cells % 0.0 /100WBC (0.0-0.0) Immature Granulocytes # 0.020 10^3/ul (0.0-0.031) Neutrophils # 2.6 10^3/ul (1.6-7.5) Lymphocytes # 2.6 10^3/ul (0.8-2.9) Monocytes # 0.8 10^3/ul (0.3-0.9) Eosinophils # 0.2 10^3/ul (0.0-0.5) Basophils # 0.1 10^3/ul (0.0-0.1) Nucleated Red Blood Cells # 0.0 10^3/ul (0.0-0.0) Sodium Level 140 mmol/L (135-144) Potassium Level 3.2 mmol/L (3.5-5.1) Chloride Level 109 mmol/L (97-110) Carbon Dioxide Level 24 mmol/L (21-31) Anion Gap 7 (5-13) Blood Urea Nitrogen 11 mg/dl (7-20) Creatinine 0.55 mg/dl (0.44-1.00) Est Glomerular Filtrat Rate mL/min > 60 mL/min (>60) Glucose Level 104 mg/dl (70-220) Calcium Level 8.6 mg/dl (8.4-10.2) Phosphorus Level 3.6 mg/dl (2.5-4.9) Magnesium Level 1.9 mg/dl (1.7-2.5) ASHLI HEBERT Nov 03, 2018 12:07
== END 2018-11-03 13:18 | disposition home or self-care (01) | DRG 872 ==
LOC: E/R 18:37 → MS1 10-31 00:12
PROVIDERS: ADMIT Internal Medicine; ATTEND Hospitalist
DX: A41.9 Sepsis, unspecified organism (principal); N13.6 Pyonephrosis; E87.6 Hypokalemia; Z87.891 Personal history of nicotine dependence
CPT/HCPCS: 36415; 71045; 74176; 80048; 80053; 81001; 81025; 83036; 83605; 83735; 84100; 85025; 87040; 87086; 96361; 96365; 96375; J0696; J0744; J1170; J1644; J1885; J2270; J2405; J2543; J7030; J7040; J7050